=== PATIENT | male | born 1990 | race Caucasian/White ===

== ENCOUNTER 2016-04-21 12:15 | Emergency (ER) | payer MEDICARE, OTHER ==
[2016-04-21 12:34] VITALS: TEMP 98.7
[2016-04-21] MEDS ORDERED: methylPREDNISolone SOD SUCCI 125 MG/2 ML VIAL IM ONE (13:11)
--- NOTE | 2016-04-21 13:14 | ED ---
Allergic Reaction HPI - General Chief complaint: Allergic Reaction Stated complaint: allergic reaction Time Seen by Provider: 04/21/16 13:07 Source: patient, RN notes reviewed Mode of arrival: ambulatory Limitations: no limitations - History of Present Illness Initial Comments: 25-year-old male presents emergency Department with chief complaint of poison jackie. Patient states that he was cutting wood yesterday patient states he woke up today if she rash all over. Patient states that he has not taken anything for this. Patient had poison jackie multiple times in the past. Patient denies any other new products including soaps lotions or detergents any medications. Patient states it's on his arms and face neck abdomen. Patient states that he feels that he is having difficulty breathing from that - Related Data Previous Rx's Medication Instructions Recorded diphenhydrAMINE [Benadryl] 50 mg PO QID PRN #20 capsule 04/21/16 methylPREDNISolone [Medrol Dose 4 mg PO DIRECTED #1 pack 04/21/16 Pack] Allergies Allergy/AdvReac Type Severity Reaction Status Date / Time baclofen Allergy Unknown Verified 01/14/16 14:01 ibuprofen [From Motrin] Allergy Unknown Verified 01/14/16 15:04 Review of Systems ROS Statement: Those systems with pertinent positive or pertinent negative responses have been documented in the HPI. ROS Other: All systems not noted in ROS Statement are negative. Past Medical History Past Medical History: No Reported History History of Any Multi-Drug Resistant Organisms: None Reported Past Surgical History: No Surgical Hx Reported Past Psychological History: Anxiety, Depression Smoking Status: Never smoker Past Alcohol Use History: None Reported Past Drug Use History: None Reported General Exam Limitations: no limitations General appearance: alert, in no apparent distress Head exam: Present: atraumatic, normocephalic, normal inspection Eye exam: Present: normal appearance, PERRL, EOMI. Absent: scleral icterus, conjunctival injection, periorbital swelling ENT exam: Present: normal exam, normal oropharynx, mucous membranes moist Neck exam: Present: normal inspection, full ROM. Absent: tenderness, meningismus, lymphadenopathy Respiratory exam: Present: normal lung sounds bilaterally. Absent: respiratory distress, wheezes, rales, rhonchi, stridor Cardiovascular Exam: Present: regular rate, normal rhythm, normal heart sounds. Absent: systolic murmur, diastolic murmur, rubs, gallop, clicks Skin exam: Present: rash (Erythematous vesicular papular rash on arms abdomen neck face region.) Course Vital Signs 04/21/16 12:32 Temperature 98.7 F Pulse Rate 92 Respiratory 20 Rate Blood Pressure 143/92 O2 Sat by Pulse 100 Oximetry Medical Decision Making - Medical Decision Making 25-year-old male present emergency department to complaint rash. Patient has poison jackie. Patient be given steroids, Benadryl. Return parameters were discussed. Disposition Clinical Impression: Poison jackie dermatitis Disposition: HOME SELF-CARE Condition: Stable Instructions: Poison Jackie (ED) Additional Instructions: Please return to the Emergency Department if symptoms worsen or any other concerns. Prescriptions: diphenhydrAMINE [Benadryl] 50 mg PO QID PRN #20 capsule PRN Reason: Itching methylPREDNISolone [Medrol Dose Pack] 4 mg PO DIRECTED #1 pack Time of Disposition: 13:14
[2016-04-21 13:48] VITALS: BP 157/80; PULSE 57; RESP 16
== END 2016-04-21 13:47 | disposition home or self-care (01) ==
LOC: EC 12:15
DX: L23.7 Allergic contact dermatitis due to plants, except food (principal); Z88.6 Allergy status to analgesic agent; Z88.8 Allergy status to other drugs, medicaments and biological substances
CPT/HCPCS: 99283; 96372; J2930

== ENCOUNTER 2016-06-14 11:40 | Emergency (ER) | payer MEDICARE, OTHER ==
[2016-06-14] MEDS ORDERED: SODIUM CHLORIDE 0.9% 1,000 ML IV STA (12:05)
[2016-06-14] MEDS ORDERED: ONDANSETRON 4 MG/2 ML VIAL IVP STA (12:05)
[2016-06-14] MEDS ORDERED: HYDROmorphone 1 MG/ML 1 ML SYRINGE IVP STA (12:05)
--- NOTE | 2016-06-14 12:10 | ED ---
Abdominal Pain HPI - General Chief Complaint: Abdominal Pain Stated Complaint: abd pain Time Seen by Provider: 06/14/16 11:53 Source: patient, RN notes reviewed Mode of arrival: ambulatory Limitations: no limitations - History of Present Illness Initial Comments: 25-year-old male presents emergency Department chief complaint bilateral flank pain, kidney stones. Patient states she's had a long history of kidney stones for last 9 years past several stones and states that his been passing quite a few frequently recently. Patient states he passed some sort of tissue or red thing today. Patient kept in the bottle. This appears to be a blood clot. Denies any vomiting states he is nauseated. Denies any fever or chills. Patient also has chronic abdominal pain secondary to Crohn's. - Related Data Home Medications Medication Instructions Recorded Confirmed Hydrocodone/Acetaminophen [[place] 1 tab PO BID PRN 06/14/16 06/14/16 5-325] Lisinopril [Zestril] 10 mg PO DAILY 06/14/16 06/14/16 Nortriptyline HCl [Pamelor] 25 mg PO HS 06/14/16 06/14/16 Zolpidem Tartrate [Ambien] 10 mg PO HS PRN 06/14/16 06/14/16 Allergies Allergy/AdvReac Type Severity Reaction Status Date / Time baclofen Allergy Unknown Verified 06/14/16 12:28 ibuprofen [From Motrin] Allergy Unknown Verified 06/14/16 12:28 Review of Systems ROS Statement: Those systems with pertinent positive or pertinent negative responses have been documented in the HPI. ROS Other: All systems not noted in ROS Statement are negative. Past Medical History Past Medical History: No Reported History Additional Past Medical History / Comment(s): kidney stones, chonic back and knee pain History of Any Multi-Drug Resistant Organisms: None Reported Past Surgical History: No Surgical Hx Reported Additional Past Surgical History / Comment(s): kidney stone removal Past Psychological History: Anxiety, Depression Smoking Status: Never smoker Past Alcohol Use History: None Reported Past Drug Use History: None Reported General Exam Limitations: no limitations General appearance: alert, in no apparent distress Respiratory exam: Present: normal lung sounds bilaterally. Absent: respiratory distress, wheezes, rales, rhonchi, stridor Cardiovascular Exam: Present: regular rate, normal rhythm, normal heart sounds. Absent: systolic murmur, diastolic murmur, rubs, gallop, clicks GI/Abdominal exam: Present: soft, tenderness (Diffuse mild), normal bowel sounds. Absent: distended, guarding, rebound, rigid Back exam: Present: CVA tenderness (R), CVA tenderness (L) Neurological exam: Present: alert, oriented X3, CN II-XII intact Skin exam: Present: warm, dry, intact, normal color. Absent: rash Course Vital Signs 06/14/16 11:42 Temperature 98 F Pulse Rate 90 Respiratory 20 Rate Blood Pressure 156/92 O2 Sat by Pulse 100 Oximetry Medical Decision Making - Medical Decision Making 25-year-old male presented for flank pain. Patient has kidney stones noted on KUB. Patient has a history kidney stones. Patient past. We small amount of blood today. Patient's urinalysis is clear. Patient we discharged follow-up with on-call urologist Dr. Reid. - Lab Data Result diagrams: 06/14/16 12:10 06/14/16 12:10 Lab Results 06/14/16 06/14/16 06/14/16 Range/Units 12:10 12:10 13:30 WBC 10.3 (3.8-10.6) k/uL RBC 5.08 (4.30-5.90) m/uL Hgb 15.4 (13.0-17.5) gm/dL Hct 46.2 (39.0-53.0) % MCV 91.0 (80.0-100.0) fL MCH 30.2 (25.0-35.0) pg MCHC 33.2 (31.0-37.0) g/dL RDW 13.4 (11.5-15.5) % Plt Count 303 (150-450) k/uL Neutrophils % 70 % Lymphocytes % 20 % Monocytes % 7 % Eosinophils % 2 % Basophils % 1 % Neutrophils # 7.2 (1.3-7.7) k/uL Lymphocytes # 2.0 (1.0-4.8) k/uL Monocytes # 0.7 (0-1.0) k/uL Eosinophils # 0.2 (0-0.7) k/uL Basophils # 0.1 (0-0.2) k/uL Sodium 140 (137-145) mmol/L Potassium 4.2 (3.5-5.1) mmol/L Chloride 105 (98-107) mmol/L Carbon Dioxide 25 (22-30) mmol/L Anion Gap 10 mmol/L BUN 16 (9-20) mg/dL Creatinine 1.13 (0.66-1.25) mg/dL Est GFR (MDRD) Af Amer >60 (>60 ml/min/1.73 sqM) Est GFR (MDRD) Non-Af >60 (>60 ml/min/1.73 sqM) Glucose 92 (74-99) mg/dL Calcium 9.8 (8.4-10.2) mg/dL Total Bilirubin 0.9 (0.2-1.3) mg/dL AST 47 (17-59) U/L ALT 91 H (21-72) U/L Alkaline Phosphatase 45 (38-126) U/L Total Protein 7.9 (6.3-8.2) g/dL Albumin 4.6 (3.5-5.0) g/dL Amylase 47 (30-110) U/L Lipase 69 (23-300) U/L Urine Color Yellow Urine Appearance Clear (Clear) Urine pH 6.0 (5.0-8.0) Ur Specific [place] 1.016 (1.001-1.035) Urine Protein Negative (Negative) Urine Glucose (UA) Negative (Negative) Urine Ketones Negative (Negative) Urine Blood Negative (Negative) Urine Nitrite Negative (Negative) Urine Bilirubin Negative (Negative) Urine Urobilinogen <2.0 (<2.0) mg/dL Ur Leukocyte Esterase Negative (Negative) Disposition Clinical Impression: Kidney stones Disposition: HOME SELF-CARE Condition: Stable Instructions: Kidney Stones (ED) Additional Instructions: Please return to the Emergency Department if symptoms worsen or any other concerns. Referrals: Rose Vaughn MD [Primary Care Provider] - 1-2 days Jitendra Michael MD [STAFF PHYSICIAN] - 1-2 days Time of Disposition: 14:04
[2016-06-14 12:23] LABS: Basophils # (A) 0.1 k/uL (0-0.2); Basophils % (A) 1 %; CH 30.7; CHCM 33.9; Eosinophils # (A) 0.2 k/uL (0-0.7); Eosinophils % (A) 2 %; HCT 46.2 % (39.0-53.0); HDW 2.32; HGB 15.4 gm/dL (13.0-17.5); Luc # (Auto) 0.16; Luc % (Auto) 2; Lymphocytes % (A) 20 %; MCH 30.2 pg (25.0-35.0); MCHC 33.2 g/dL (31.0-37.0); Mean Platelet Volume 6.2; Monocytes # (A) 0.7 k/uL (0-1.0); Monocytes % (A) 7 %; Neutrophils # (A) 7.2 k/uL (1.3-7.7); Neutrophils % (A) 70 %; RBC 5.08 m/uL (4.30-5.90); RDW 13.4 % (11.5-15.5); WBC 10.3 k/uL (3.8-10.6); WBC (Perox) 9.87
[2016-06-14 12:33] LABS: ALT 91 U/L (21-72); AST 47 U/L (17-59); Alkaline Phosphatase 45 U/L (38-126); Amylase 47 U/L (30-110); Anion Gap 10 mmol/L; Blood Urea Nitrogen 16 mg/dL (9-20); Calcium 9.8 mg/dL (8.4-10.2); Carbon Dioxide 25 mmol/L (22-30); Chloride 105 mmol/L (98-107); Glucose 92 mg/dL (74-99); Non-African American GFR(MDRD) >60 (>60 ml/min/1.73 sqM); Potassium 4.2 mmol/L (3.5-5.1); Sodium 140 mmol/L (137-145); Total Bilirubin 0.9 mg/dL (0.2-1.3); Total Protein 7.9 g/dL (6.3-8.2)
--- NOTE | 2016-06-14 12:33 | XR ---
EXAMINATION TYPE: XR KUB DATE OF EXAM: 06/14/2016 12:28 PM CLINICAL HISTORY: Bilateral flank pain. Gross hematuria. TECHNIQUE: 2 upright KUB images of the abdomen are obtained. COMPARISON: Abdominal x-ray October 05, 2012. CT abdomen and pelvis March 24, 2011. FINDINGS: Scattered gas is seen in non-distended small bowel loops. Gas and fecal material is seen in non-distended colon. Several small tiny calculi are seen bilaterally, this correlates with prior C T. At least 4 small calculi are present lower pole level of both kidneys. There is suspected large ir regular 6 mm calculus upper pole level right kidney near level of right 12th rib. No pneumoperitoneu m is seen. Lung bases are clear. Visualized osseous structures are intact. Impression: Multiple small bilateral renal calculi redemonstrated.
[2016-06-14 13:52] LABS: Appearance,Urine Clear (Clear); Bilirubin,Urine Negative (Negative); Glucose,Urine (UA) Negative (Negative); Ketones,Urine Negative (Negative); Leukocyte Esterase,Urine Negative (Negative); Nitrite,Urine Negative (Negative); Protein,Urine Negative (Negative); Specific Gravity,Urine 1.016 (1.001-1.035); UA Billing (MACRO vs. MICRO) CHEM; Urobilinogen,Urine <2.0 mg/dL (<2.0)
[2016-06-14 14:19] VITALS: BP 128/78; PULSE 70; RESP 18; TEMP 98.1
[2016-06-15 13:58] LABS: Hepatitis B Surface Ag Index 0.08
[2016-06-15 14:04] LABS: Hepatitis B Core IgM Index 0.08
[2016-06-15 14:19] LABS: Hepatitis C Virus IgG Ab Reactive (Negative)
== END 2016-06-14 14:19 | disposition home or self-care (01) ==
LOC: EC 11:40
DX: N20.0 Calculus of kidney (principal); R11.0 Nausea; F41.9 Anxiety disorder, unspecified; F32.9 Major depressive disorder, single episode, unspecified; Z79.899 Other long term (current) drug therapy; Z88.6 Allergy status to analgesic agent; Z88.8 Allergy status to other drugs, medicaments and biological substances
CPT/HCPCS: 36415; 80053; 82150; 83690; 85025; 81003; 74000; 99284; 96374; 96375; 96361; J2405; J1170; 80074

== ENCOUNTER → 2016-06-21 | Outpatient (CLI) | payer MEDICARE, OTHER ==
--- NOTE | 2016-06-21 11:47 | XR ---
EXAMINATION TYPE: XR KUB DATE OF EXAM: 06/21/2016 10:49 AM CLINICAL DATA: 25-year-old male follow-up bilateral renal stones, [facility] COMPARISON: 06/14/2016 FINDINGS: Nonobstructive bowel gas pattern. Mild overall stool burden. Bilateral nephrolithiasis redemonstrated with calculi measuring up to 5 mm on the right at the upper pole and 6 mm on the left at the lower pole. There appears to be a transitional lumbosacral segment probably sacralized L5. Stable phlebolith with in the right hemipelvis. IMPRESSION: Redemonstrated bilateral nephrolithiasis measuring up to 6 mm.
== END | disposition home or self-care (01) ==
LOC: RADXRMAIN 10:38
PROVIDERS: ATTEND Physician Assistant
DX: N20.0 Calculus of kidney (principal)
CPT/HCPCS: 74000

== ENCOUNTER → 2016-06-24 | Outpatient (CLI) | payer MEDICARE, OTHER ==
--- NOTE | 2016-06-24 11:54 | CT ---
EXAMINATION TYPE: CT abdomen pelvis wo con DATE OF EXAM: 06/24/2016 11:40 AM COMPARISON: NONE HISTORY: Calculus of kidney and Calculus of ureter CT DLP: 869 mGycm Automated exposure control for dose reduction was used. FINDINGS: Visualized portions of the lungs are clear. There is no pleural or pericardial fluid. Within the abdomen, the liver, spleen and gallbladder appear normal. Both adrenal glands appear normal. Limited views of the pancreas are unremarkable. There is bilateral nephrolithiasis these number approximately 10 on the right and 3 on the left. The largest on the right measures 6.6 mm. The largest on the left measures 5 mm. There is no evidence of hydronephrosis. There is no significant retroperitoneal, iliac or inguinal adenopathy. The bladder wall is somewhat thickened. This may be due to lack of distention. There are occasional diverticula within the sigmoid colon. The appendix is not visualized with certai nty. Small bowel loops are normal. There is no free fluid and no free air. There is a tiny umbilical hernia containing fat only. There is mild wedging of the T12 vertebral body. This is likely developmental. IMPRESSION: 1. BILATERAL NONOBSTRUCTING NEPHROLITHIASIS. 2. TINY UMBILICAL HERNIA CONTAINING FAT ONLY. 3. MINIMAL, UNCOMPLICATED DIVERTICULOSIS OF THE SIGMOID COLON.
== END | disposition home or self-care (01) ==
LOC: RADCTMAIN 11:18
PROVIDERS: ATTEND Urology
DX: N20.0 Calculus of kidney (principal); K42.9 Umbilical hernia without obstruction or gangrene; K57.30 Diverticulosis of large intestine without perforation or abscess without bleeding; Z88.6 Allergy status to analgesic agent; Z88.8 Allergy status to other drugs, medicaments and biological substances
CPT/HCPCS: 74176

== ENCOUNTER 2016-08-18 11:59 | Emergency (ER) | payer MEDICARE, OTHER ==
[2016-08-18 13:37] VITALS: RESP 18
--- NOTE | 2016-08-18 14:18 | ED ---
Recheck HPI - General Chief Complaint: Recheck/Abnormal Lab/Rx Stated Complaint: left foot dressing wrap Time Seen by Provider: 08/18/16 14:04 Source: family Mode of arrival: wheelchair Limitations: no limitations - History of Present Illness Initial Comments: Patient is a 25-year-old male presenting to the emergency department for wound check and dressing changes of a left foot laceration. Patient states he didn't receive any instructions for wound care and just wanted his dressing changed. Patient currently denies chills, fevers, nausea, vomiting, shortness of breath, chest pain, or abdominal pain. Patient reports mild numbness to his left great toe. Patient states he is taking [place] 7.5 with relief. MD Complaint: wound re-check Onset/Timin -: days(s) Initial Visit For: laceration (Left anterior foot.) Returns Today for: wound recheck, other (Dressing change) Treatments Prior to Arrival: dressings - Related Data Home Medications Medication Instructions Recorded Confirmed Lisinopril [Zestril] 10 mg PO DAILY 06/14/16 08/18/16 Nortriptyline HCl [Pamelor] 50 mg PO HS 06/14/16 08/18/16 Zolpidem Tartrate [Ambien] 10 mg PO HS PRN 06/14/16 08/18/16 HYDROcodone/APAP 7.5-325MG [[place] 1 tab PO Q6HR PRN 08/18/16 08/18/16 7.5-325] metroNIDAZOLE [Flagyl] 500 mg PO BID PRN 08/18/16 08/18/16 Allergies Allergy/AdvReac Type Severity Reaction Status Date / Time baclofen Allergy "BLACKS Verified 08/18/16 14:03 OUT" ibuprofen [From Motrin] Allergy GABI'S Verified 08/18/16 14:03 FLARE UPS Review of Systems ROS Statement: Those systems with pertinent positive or pertinent negative responses have been documented in the HPI. ROS Other: All systems not noted in ROS Statement are negative. Past Medical History Past Medical History: No Reported History Additional Past Medical History / Comment(s): kidney stones, chonic back and knee pain History of Any Multi-Drug Resistant Organisms: None Reported Past Surgical History: No Surgical Hx Reported Additional Past Surgical History / Comment(s): kidney stone removal Past Psychological History: Anxiety, Depression Smoking Status: Current every day smoker Past Alcohol Use History: None Reported Past Drug Use History: Marijuana General Exam - General Exam Comments Initial Comments: GENERAL: Pt awake and alert, well-appearing, well-nourished, and in no acute distress. HEAD: Atraumatic, normocephalic. EYES: Pupils equal, round, sclera anicteric, conjunctiva are normal. ENT: Oropharynx clear without exudates. Moist mucous membranes. NECK:Normal range of motion, supple without lymphadenopathy or JVD. No carotid bruits. LUNGS: Breath sounds clear to auscultation bilaterally. No wheezes, rales, or rhonchi. HEART: Heart S1, S2, no S3 or S4. Regular rate and rhythm. No murmurs, rubs or gallops. ABDOMEN: Soft, nontender, nondistended, normoactive bowel sounds. EXTREMITIES: Palpable peripheral pulses. Mild edema to left anterior foot proximal to left great toe. No calf tenderness. NEUROLOGICAL: Pt oriented x 3. No focal deficits noted. Strength and sensation grossly intact. PSYCH: Normal mood, normal affect. SKIN: Warm, dry. 4 cm laceration to anterior left foot proximal to left great toe with 6 sutures. No evidence of cellulitis or drainage. Limitations: no limitations Course Vital Signs 08/18/16 13:33 Temperature 98.0 F Pulse Rate 81 Respiratory 18 Rate Blood Pressure 123/65 O2 Sat by Pulse 100 Oximetry Medical Decision Making - Medical Decision Making Wound check and dressing change for follow-up of laceration to left foot. No evidence of cellulitis or purulent drainage. Patient instructed to follow-up with Dr. Vaughn for suture removal as previously directed. Wound care instructions reviewed with patient. Patient agrees with treatment plan. Discharge instructions and return parameters reviewed. Disposition Clinical Impression: Encounter for wound re-check Disposition: HOME SELF-CARE Condition: Good Instructions: Care For Your Stitches (ED), Laceration (ED) Additional Instructions: Please follow-up with Dr. Vaughn as previously directed. Monitor for signs and symptoms of infection such as increased redness, increased pain, increased numbness or tingling, fevers, chills, nausea, vomiting. Patient return to the emergency department with any new or worsening symptoms. Referrals: Rose Vaughn MD [Primary Care Provider] - 1-2 days Time of Disposition: 14:18
[2016-08-18 14:32] VITALS: BP 120/60; PULSE 77; TEMP 98.1
== END 2016-08-18 14:33 | disposition home or self-care (01) ==
LOC: EC 11:59
DX: S91.312D Laceration without foreign body, left foot, subsequent encounter (principal); R20.0 Anesthesia of skin; F32.9 Major depressive disorder, single episode, unspecified; F17.200 Nicotine dependence, unspecified, uncomplicated; Z79.899 Other long term (current) drug therapy; Z88.6 Allergy status to analgesic agent; Z88.8 Allergy status to other drugs, medicaments and biological substances
CPT/HCPCS: 99282

== ENCOUNTER → 2017-02-22 | Outpatient (CLI) | payer MEDICARE, OTHER ==
--- NOTE | 2017-02-22 12:04 | CT ---
EXAMINATION TYPE: CT Enterography DATE OF EXAM: 02/22/2017 COMPARISON: CT abdomen pelvis June 24, 2016. HISTORY: Chron' s Disease per order. CT DLP: 1095.2 mGycm, Automated Exposure Control for Dose Reduction was Utilized. CONTRAST: CT scan of the abdomen and pelvis is performed with oral Volumen and without and with IV Contrast, pa tient injected with 100 mL of Omnipaque 350. Enterography protocol. FINDINGS: LUNG BASES: No significant abnormality is appreciated. LIVER/GB: No significant abnormality is appreciated. PANCREAS: No significant abnormality is seen. SPLEEN: No significant abnormality is seen. ADRENALS: No significant abnormality is seen. KIDNEYS: Noncontrast images redemonstrate bilateral renal calculi there are 4-5 calculi in the left k idney measuring up to 5 mm in size lower pole level coronal image 79 and 6-9 calculi scattered throug hout right kidney with largest upper pole level filling central calyx measuring 6 mm long axis philippe l image 85 all redemonstrated. No hydronephrosis is evident bilaterally. There is simple appearing martin bcentimeter cyst lower pole level laterally left kidney coronal image 81 series 17. BOWEL: Stomach is satisfactorily distended and felt within normal limits. No suspicious enhancement o r wall thickening and duodenal sweep is seen. Enterography study is somewhat suboptimal with some non distended scattered small bowel loops. There is fluid extension to level of rectum. There is mild wal l thickening at level of terminal ileum which is somewhat poorly distended. This is also less promine nt on noncontrast and delayed phase imaging. No suspicious enhancement is seen to suggest active infl ammation. No vasa engorgement is identified. No persistent stricture is clearly seen. PROSTATE/SEMINAL VESICLES: No gross abnormality seen. LYMPH NODES: No greater than 1cm abdominal or pelvic lymph nodes are appreciated. OSSEOUS STRUCTURES: Sacroiliac joints remain within normal limits. OTHER: There is stable tiny fat-containing umbilical hernia. IMPRESSION: Suboptimal study without convincing evidence of active inflammation or Crohn's disease. B ilateral nephrolithiasis redemonstrated.
== END | disposition home or self-care (01) ==
LOC: RADCTMAIN 08:12
PROVIDERS: ATTEND Internal Medicine Gastroenterology
DX: N20.0 Calculus of kidney (principal); Z87.19 Personal history of other diseases of the digestive system
CPT/HCPCS: 74177; Q9967

== ENCOUNTER 2017-03-20 18:20 | Emergency (ER) | payer MEDICARE, OTHER ==
[2017-03-20 19:41] VITALS: RESP 18
[2017-03-20 20:57] VITALS: BP 143/83; PULSE 90
[2017-03-20 21:01] VITALS: TEMP 98.4
--- NOTE | 2017-03-20 21:22 | ED ---
General Adult HPI - General Chief complaint: Abdominal Pain Stated complaint: Hernia/ abdominal pain Time Seen by Provider: 03/20/17 20:53 Source: patient, family, RN notes reviewed Mode of arrival: ambulatory Limitations: no limitations - History of Present Illness Initial comments: 26 shows male presents to the emergency Department chief complaint of pain around his umbilical hernia. He was recently diagnosed with this. He states after lifting heavy logs he developed some abdominal pain today. (Early. Patient has a nausea vomiting fever or chills. He denies any cough cold with this. He states he still had bowel movements. He states that if you touch the area seems to cause him discomfort he bears down and listening it causes him pain. Patient states he is not currently having any other symptoms at this time. Patient denies any recent fever, chills, shortness of breath, chest pain, back pain, nausea vomiting, numbness or tingling, dysuria or hematuria, constipation or diarrhea, headaches or visual changes, or any other current symptoms. - Related Data Home Medications Medication Instructions Recorded Confirmed oxyCODONE-APAP 7.5-325MG [Percocet 1 tab PO TID PRN 03/20/17 03/20/17 7.5-325 mg] Previous Rx's Medication Instructions Recorded Docusate [Colace] 100 mg PO DAILY #20 capsule 03/20/17 Allergies Allergy/AdvReac Type Severity Reaction Status Date / Time baclofen Allergy "BLACKS Verified 03/20/17 20:55 OUT" ibuprofen [From Motrin] Allergy GABI'S Verified 03/20/17 20:55 FLARE UPS Review of Systems ROS Statement: Those systems with pertinent positive or pertinent negative responses have been documented in the HPI. ROS Other: All systems not noted in ROS Statement are negative. Past Medical History Past Medical History: No Reported History Additional Past Medical History / Comment(s): kidney stones, chonic back and knee pain, hernia History of Any Multi-Drug Resistant Organisms: None Reported Past Surgical History: No Surgical Hx Reported Additional Past Surgical History / Comment(s): kidney stone removal Past Psychological History: Anxiety, Depression Smoking Status: Current some day smoker Past Alcohol Use History: None Reported Past Drug Use History: Marijuana General Exam - General Exam Comments Initial Comments: General: The patient is awake and alert, in no distress, and does not appear acutely ill. Eye: Pupils are equal, round and reactive to light. Ears, nose, mouth and throat: There are moist mucous membranes. Neck: The neck is supple, there is no tenderness. Cardiovascular: There is a regular rate and rhythm. No murmur, rub or gallop is appreciated. Respiratory: Lungs are clear to auscultation, respirations are non-labored, breath sounds are equal. No wheezes, stridor, rales, or rhonchi. Gastrointestinal: Small umbilical hernia that is reducible, Soft, non-distended , non-tender abdomen without masses or organomegaly noted. There is no rebound or guarding present. No CVA tenderness. Bowel sounds are unremarkable. Back: There is no tenderness to palpation in the midline. There is no obvious deformity. No rashes noted. Musculoskeletal: Normal ROM, no tenderness, There is no pedal edema. There is no calf tenderness or swelling. Sensation intact. Pulses equal bilaterally 2+. Neurological: CN II-XII intact, There are no obvious motor or sensory deficits. Coordination appears grossly intact. Speech is normal. Skin: Skin is warm and dry and no rashes or lesions are noted. Psychiatric: Cooperative, appropriate mood & affect, normal judgment. Limitations: no limitations Course Vital Signs 03/20/17 03/20/17 19:36 20:56 Temperature 99.3 F 98.4 F Pulse Rate 78 90 Respiratory 18 18 Rate Blood Pressure 133/85 143/83 O2 Sat by Pulse 100 98 Oximetry Medical Decision Making - Medical Decision Making 36 shows male presents for umbilical hernia pain he is also requesting refill of his chronic pain medication. We discussed these follow-up with his neurologist for this refill. This time we did discuss we will put him on a stool softener. We discussed return parameters and follow-up and all questions. Patient stated the Anup is given this plan. All questions have been answered. He'll be discharged. We also discussed needs follow-up with surgeon he is given this was personalized living manager for information. Disposition Clinical Impression: Umbilical hernia Disposition: HOME SELF-CARE Condition: Stable Instructions: Umbilical Hernia (ED) Additional Instructions: Please use medication as discussed. Please follow up with family doctor if symptoms have not improved over the next two days. Please return to the emergency room if your symptoms increase or worsen or for any other concerns. Prescriptions: Docusate [Colace] 100 mg PO DAILY #20 capsule Referrals: Rose Vaughn MD [Primary Care Provider] - 1-2 days Maninder Dash MD [STAFF PHYSICIAN] - 1-2 days Time of Disposition: 21:22
[2017-03-20] MEDS ORDERED: ACETAMINOPHEN TAB 500 MG TAB PO STA (21:33)
== END 2017-03-20 21:39 | disposition home or self-care (01) ==
LOC: EC 18:20
DX: K42.9 Umbilical hernia without obstruction or gangrene (principal); F17.200 Nicotine dependence, unspecified, uncomplicated; Z88.6 Allergy status to analgesic agent; Z88.8 Allergy status to other drugs, medicaments and biological substances
CPT/HCPCS: 99283

== ENCOUNTER → 2017-04-05 | Day surgery (SDC) | payer MEDICARE, OTHER ==
[2017-03-31 10:20] VITALS: BMI 24.0
[~2017-04-05] MED LIST: BUPIVACAINE (PF) 0.25% 30 ML VIAL SQ ONE; DEXAMETHASONE SOD PHOSPHATE 10 MG/ML 1 ML VIAL IV ONE; GLYCOPYRROLATE 0.2 MG/ML 2 ML VIAL ONE; HEPARIN SODIUM,PORCINE 5,000 UNIT/ML 1 ML VIAL SQ ONE; HYDROcodone/APAP 7.5-325MG 1 EACH TAB PO ONE; LACTATED RINGERS 1,000 ML IV SCH; LIDOCAINE 1% 20 ML VIAL (10MG/ML) FOR IV START INTRADERMA PRN; LIDOCAINE 1% INJ 10MG/ML (20 ML MDV) ONE; MIDAZOLAM 2 MG/2 ML VIAL ONE; MORPHINE SULFATE 4 MG/ML SYRINGE IV ONE; NEOSTIGMINE 1 MG/ML 10 ML VIAL ONE; ONDANSETRON 4 MG/2 ML VIAL IVP ONE; PROPOFOL 10 MG/ML 20 ML VIAL IV ONE; ROCURONIUM BROMIDE 10 MG/ML 10 ML VIAL IV ONE; SCOPOLAMINE 1.5MG/72HR PATCH TRANSDERM ONE; SUCCINYLCHOLINE CHLORIDE 100 MG/5 ML SYR IV ONE; ceFAZolin IN SWFI 2 GM/20 ML SYRINGE IVP ONE; fentaNYL (PF) 50 MCG/ML 2 ML AMP ONE
--- NOTE | 2017-04-05 08:15 | P.GSHP ---
History of Present Illness H&P Date: 04/05/17 Chief Complaint: Umbilical hernia This a 26-year-old male referred from Dr. Vaughn. Patient rents today for laparoscopic robotic-assisted repair of umbilical hernia. Patient developed a tender mass at his umbilicus. Past Medical History Past Medical History: Hypertension Additional Past Medical History / Comment(s): kidney stones, chonic back and knee pain, hernia, Crohns dx. at age 16. Patient states he takes Zestril prn if his BP is high. History of Any Multi-Drug Resistant Organisms: None Reported Past Surgical History: Tonsillectomy Additional Past Surgical History / Comment(s): kidney stone removal, repair of lacerations from chain saw, L forearm and L toe. Additional Past Anesthesia/Blood Transfusion Reaction / Comment(s): Severe anxiety when waking up from anesthesia. Smoking Status: Current some day smoker - Past Family History Mother Additional Family Medical History / Comment(s): Brain aneurysm Medications and Allergies Home Medications Medication Instructions Recorded Confirmed Type oxyCODONE-APAP 7.5-325MG [Percocet 1 tab PO TID PRN 03/20/17 03/31/17 History 7.5-325 mg] Dicyclomine [Bentyl] 10 mg PO TID 03/31/17 04/05/17 History Lisinopril [Zestril] 10 mg PO DAILY PRN 03/31/17 04/05/17 History Polyethylene Glycol 3350 [Miralax] 17 gm PO DAILY 03/31/17 04/05/17 History Vortioxetine Hydrobromide 10 mg PO DAILY 03/31/17 03/31/17 History [Trintellix] hydrOXYzine HCL [Atarax] 25 mg PO TID 03/31/17 03/31/17 History Allergies Allergy/AdvReac Type Severity Reaction Status Date / Time baclofen Allergy "BLACKS Verified 03/31/17 09:34 OUT" ibuprofen [From Motrin] Allergy GABI'S Verified 03/31/17 09:34 FLARE UPS Surgical - Exam Vital Signs Temp Pulse Resp BP Pulse Ox 97.9 F 63 16 109/72 97 04/05/17 07:51 04/05/17 07:51 04/05/17 07:51 04/05/17 07:51 04/05/17 07:51 - General well developed, no distress - Eyes PERRL - ENT normal pinna - Neck no masses - Respiratory normal expansion - Cardiovascular Rhythm: regular - Abdomen Abdomen: soft, non tender Hernia: umbilical (Reducible umbilical hernia) Assessment and Plan Plan: Umbilical hernia. We will perform laparoscopic robotic assistance repair.
--- NOTE | 2017-04-05 09:35 | P.OP ---
Date of Procedure: 04/05/17 Preoperative Diagnosis: Incarcerated umbilical hernia Postoperative Diagnosis: Incarcerated umbilical hernia Procedure(s) Performed: Laparoscopic robotic system repair of incarcerated umbilical hernia Anesthesia: KHRIS Surgeon: Maninder Dash Estimated Blood Loss (ml): 5 Pathology: other (Incarcerated fat) Condition: stable Disposition: PACU Description of Procedure: The patient was placed on the operating table in the supine position. He received general anesthesia. His abdomen was prepped and draped usual fashion. Using a 5 mm optical trocar under direct visualization the peritoneal cavity was entered in the left upper quadrant. The abdomen was then insufflated. The laparoscope was placed back into the perineal cavity. Next a 8 mm robotic trocar was placed in the left lower quadrant and a 12 mm robotic trocar was placed in the left lateral position. The original 5 mm trocar was exchanged for a 8 mm robotic trocar. The patient's placed in the left side up position. And the patient was undocked the robot. The umbilical hernia was visualized. Using hook cautery the peritoneum over the umbilical hernia was excised. There was incarcerated omentum and this was dissected free and then transected with the hook cautery. The fascial opening was repaired using 0V LOC suture. Next a piece of 11 cm round ventral light ST mesh was placed into the. Cavity and secured with 2 OV lock suture. The patient was undocked the robot. The needles were retrieved. The incarcerated fat was retrieved. The fascia of the 12 mm trocar site was closed with 0 Ethibond suture. Skin was closed interrupted 3-0 Monocryl suture. Dermabond dressings was applied. Patient top procedure well and was sent to recovery room stable condition.
[2017-04-05 10:06] VITALS: TEMP 97.8
[2017-04-05] MEDS: HYDROmorphone 0.5 MG/0.5 ML SYRINGE IVP PRN ×2 (10:30→10:42)
[2017-04-05 11:18] VITALS: RESP 16
[2017-04-05 11:58] VITALS: BP 119/82; PULSE 94
== END | disposition home or self-care (01) ==
LOC: OR 07:21
PROVIDERS: ATTEND Surgery
DX: K42.0 Umbilical hernia with obstruction, without gangrene (principal); I10 Essential (primary) hypertension; K50.90 Crohn's disease, unspecified, without complications; Z87.442 Personal history of urinary calculi; F41.9 Anxiety disorder, unspecified; Z79.899 Other long term (current) drug therapy; Z88.6 Allergy status to analgesic agent; Z88.8 Allergy status to other drugs, medicaments and biological substances; F17.200 Nicotine dependence, unspecified, uncomplicated
CPT/HCPCS: 88302; 49653; C1781; J2250; J2270; J1644; J1100; J2710; J2405; J2001; J3010; J0330; J2704; J1170; J0690

== ENCOUNTER 2017-04-07 20:03 | Inpatient (IN) | payer MEDICARE, OTHER ==
[2017-04-07] MEDS ORDERED: ACETAMINOPHEN IV (For NPO) 1,000 MG in EMPTY BAG 1 BAG IVPB STA (21:48)
[2017-04-07] MEDS ORDERED: SODIUM CHLORIDE 0.9% 1,000 ML IV STA ×2 (21:48)
[2017-04-07] MEDS ORDERED: SODIUM CHLORIDE 0.9% 500 ML IV STA (21:48)
[2017-04-07] MEDS ORDERED: RX INFO: IV CONTRAST WAS GIVEN 1 EACH MISC MISCELLANE PRN (21:49)
[2017-04-07] MEDS ORDERED: MORPHINE SULFATE 4 MG/ML SYRINGE IVP STA (22:13)
[2017-04-07 22:36] LABS: Basophils % (A) 0 %; Eosinophils # (A) 0.1 k/uL (0-0.7); Eosinophils % (A) 1 %; HCT 47.4 % (39.0-53.0); Lymphocytes % (A) 12 %; MCH 29.6 pg (25.0-35.0); MCHC 31.7 g/dL (31.0-37.0); MCV 93.5 fL (80.0-100.0); Mean Platelet Volume 6.1; Monocytes # (A) 1.2 k/uL (0-1.0); Monocytes % (A) 7 %; Neutrophils # (A) 13.4 k/uL (1.3-7.7); Neutrophils % (A) 79 %; Platelet Count 263 k/uL (150-450); RBC 5.07 m/uL (4.30-5.90); RDW 13.2 % (11.5-15.5); WBC 16.9 k/uL (3.8-10.6)
[2017-04-07 22:54] LABS: ALT 55 U/L (21-72); AST 25 U/L (17-59); Albumin 4.1 g/dL (3.5-5.0); Alkaline Phosphatase 52 U/L (38-126); Anion Gap 11 mmol/L; Blood Urea Nitrogen 12 mg/dL (9-20); Calcium 9.5 mg/dL (8.4-10.2); Carbon Dioxide 29 mmol/L (22-30); Chloride 100 mmol/L (98-107); Glucose 94 mg/dL (74-99); Potassium 4.1 mmol/L (3.5-5.1); Sodium 140 mmol/L (137-145); Total Bilirubin 0.8 mg/dL (0.2-1.3)
--- NOTE | 2017-04-07 23:02 | ED ---
General Adult HPI - General Chief complaint: Fever Stated complaint: Fever S/p surgery Time Seen by Provider: 04/07/17 21:17 Source: patient, RN notes reviewed, old records reviewed Mode of arrival: wheelchair Limitations: no limitations - History of Present Illness Initial comments: This is a 26-year-old male the ER for evaluation. This patient is a for evaluation regards to fever. Abdominal pain. Cough and congestion. Patient has positive recent history of hernia surgery hernia repair last week. No dysuria, no rash. Patient is is overall not feeling well. Patient has severe abdominal pain as well which has been going on since surgery. Patient states a follow-up surgeries been going well. Fever started last night - Related Data Home Medications Medication Instructions Recorded Confirmed oxyCODONE-APAP 7.5-325MG [Percocet 1 tab PO TID PRN 03/20/17 04/07/17 7.5-325 mg] Vortioxetine Hydrobromide 10 mg PO DAILY 03/31/17 04/07/17 [Trintellix] hydrOXYzine HCL [Atarax] 25 mg PO TID 03/31/17 04/07/17 Previous Rx's Medication Instructions Recorded Docusate [Colace] 100 mg PO BID #20 capsule 04/05/17 Allergies Allergy/AdvReac Type Severity Reaction Status Date / Time baclofen Allergy "BLACKS Verified 04/07/17 22:04 OUT" ibuprofen [From Motrin] Allergy GABI'S Verified 04/07/17 22:04 FLARE UPS Review of Systems ROS Statement: Those systems with pertinent positive or pertinent negative responses have been documented in the HPI. ROS Other: All systems not noted in ROS Statement are negative. Past Medical History Past Medical History: Hypertension Additional Past Medical History / Comment(s): kidney stones, chonic back and knee pain, hernia, Crohns dx. at age 16. Patient states he takes Zestril prn if his BP is high. History of Any Multi-Drug Resistant Organisms: None Reported Past Surgical History: Hernia Repair, Tonsillectomy Additional Past Surgical History / Comment(s): kidney stone removal, repair of lacerations from chain saw, L forearm and L toe. Additional Past Anesthesia/Blood Transfusion Reaction / Comment(s): Severe anxiety when waking up from anesthesia. Past Psychological History: Anxiety, Depression Smoking Status: Current every day smoker Past Alcohol Use History: None Reported Past Drug Use History: Marijuana - Past Family History Mother Additional Family Medical History / Comment(s): Brain aneurysm General Exam Limitations: no limitations General appearance: alert, in no apparent distress, anxious Head exam: Present: atraumatic, normocephalic, normal inspection Eye exam: Present: normal appearance, PERRL, EOMI. Absent: scleral icterus, conjunctival injection, periorbital swelling ENT exam: Present: normal exam, mucous membranes moist Neck exam: Present: normal inspection. Absent: tenderness, meningismus, lymphadenopathy Respiratory exam: Present: normal lung sounds bilaterally. Absent: respiratory distress, wheezes, rales, rhonchi, stridor Cardiovascular Exam: Present: normal rhythm, tachycardia, normal heart sounds. Absent: systolic murmur, diastolic murmur, rubs, gallop, clicks GI/Abdominal exam: Present: soft, tenderness (Generalized diffuse), normal bowel sounds. Absent: distended, guarding, rebound, rigid Extremities exam: Present: normal inspection, full ROM, normal capillary refill. Absent: tenderness, pedal edema, joint swelling, calf tenderness Back exam: Present: normal inspection Neurological exam: Present: alert, oriented X3, CN II-XII intact Psychiatric exam: Present: normal affect, normal mood Skin exam: Present: warm, dry, intact, normal color. Absent: rash Course Vital Signs 04/07/17 04/07/17 04/07/17 20:49 23:20 23:44 Temperature 100.7 F H 98.3 F Pulse Rate 107 H 89 80 Respiratory 18 16 Rate Blood Pressure 102/61 112/58 O2 Sat by Pulse 95 99 Oximetry - Reevaluation(s) Reevaluation #1: 04/07/17 23:02 Medical records thoroughly reviewed including prior surgical record Reevaluation #2: 04/07/17 23:02 Patient is feeling better with fever control pain control Medical Decision Making - Medical Decision Making 26 male to the ED for pain, fever, cough. Patient has pneumonia will admit for IV abx and cardiopulmonary support. - Lab Data Result diagrams: 04/07/17 22:10 04/07/17 22:10 Lab Results 04/07/17 04/07/17 04/07/17 Range/Units 22:10 22:10 22:10 WBC 16.9 H (3.8-10.6) k/uL RBC 5.07 (4.30-5.90) m/uL Hgb 15.0 (13.0-17.5) gm/dL Hct 47.4 (39.0-53.0) % MCV 93.5 (80.0-100.0) fL MCH 29.6 (25.0-35.0) pg MCHC 31.7 (31.0-37.0) g/dL RDW 13.2 (11.5-15.5) % Plt Count 263 (150-450) k/uL Neutrophils % 79 % Lymphocytes % 12 % Monocytes % 7 % Eosinophils % 1 % Basophils % 0 % Neutrophils # 13.4 H (1.3-7.7) k/uL Lymphocytes # 2.0 (1.0-4.8) k/uL Monocytes # 1.2 H (0-1.0) k/uL Eosinophils # 0.1 (0-0.7) k/uL Basophils # 0.0 (0-0.2) k/uL Sodium 140 (137-145) mmol/L Potassium 4.1 (3.5-5.1) mmol/L Chloride 100 (98-107) mmol/L Carbon Dioxide 29 (22-30) mmol/L Anion Gap 11 mmol/L BUN 12 (9-20) mg/dL Creatinine 1.00 (0.66-1.25) mg/dL Est GFR (MDRD) Af Amer >60 (>60 ml/min/1.73 sqM) Est GFR (MDRD) Non-Af >60 (>60 ml/min/1.73 sqM) Glucose 94 (74-99) mg/dL Plasma Lactic Acid [place] 1.0 (0.7-2.0) mmol/L Calcium 9.5 (8.4-10.2) mg/dL Total Bilirubin 0.8 (0.2-1.3) mg/dL AST 25 (17-59) U/L ALT 55 (21-72) U/L Alkaline Phosphatase 52 (38-126) U/L Total Protein 7.0 (6.3-8.2) g/dL Albumin 4.1 (3.5-5.0) g/dL Influenza Type A RNA (Not Detectd) Influenza Type B (PCR) (Not Detectd) 04/07/17 Range/Units 22:10 WBC (3.8-10.6) k/uL RBC (4.30-5.90) m/uL Hgb (13.0-17.5) gm/dL Hct (39.0-53.0) % MCV (80.0-100.0) fL MCH (25.0-35.0) pg MCHC (31.0-37.0) g/dL RDW (11.5-15.5) % Plt Count (150-450) k/uL Neutrophils % % Lymphocytes % % Monocytes % % Eosinophils % % Basophils % % Neutrophils # (1.3-7.7) k/uL Lymphocytes # (1.0-4.8) k/uL Monocytes # (0-1.0) k/uL Eosinophils # (0-0.7) k/uL Basophils # (0-0.2) k/uL Sodium (137-145) mmol/L Potassium (3.5-5.1) mmol/L Chloride (98-107) mmol/L Carbon Dioxide (22-30) mmol/L Anion Gap mmol/L BUN (9-20) mg/dL Creatinine (0.66-1.25) mg/dL Est GFR (MDRD) Af Amer (>60 ml/min/1.73 sqM) Est GFR (MDRD) Non-Af (>60 ml/min/1.73 sqM) Glucose (74-99) mg/dL Plasma Lactic Acid Clemente (0.7-2.0) mmol/L Calcium (8.4-10.2) mg/dL Total Bilirubin (0.2-1.3) mg/dL AST (17-59) U/L ALT (21-72) U/L Alkaline Phosphatase (38-126) U/L Total Protein (6.3-8.2) g/dL Albumin (3.5-5.0) g/dL Influenza Type A RNA Not Detected (Not Detectd) Influenza Type B (PCR) Not Detected (Not Detectd) - Radiology Data Radiology results: report reviewed (Chest x-ray CT of pelvis positive for pneumonia), image reviewed Disposition Clinical Impression: Fever, Nosocomial pneumonia, Postoperative pain Disposition: ADMITTED IP TO THIS HOSP Condition: Good Referrals: Rose Vaughn MD [Primary Care Provider] - 1-2 days
--- NOTE | 2017-04-07 23:07 | CT ---
EXAMINATION TYPE: CT abdomen pelvis w con DATE OF EXAM: 04/07/2017 COMPARISON: 06/24/2016 HISTORY: Left side abd pain post hernia repair. CT DLP: 729.4 mGycm Automated exposure control for dose reduction was used. TECHNIQUE: Helical acquisition of images was performed from the lung bases through the pelvis. CONTRAST: Performed without Oral Contrast and with IV Contrast, patient injected with 100ml mL of Omnipaque 300 . FINDINGS: There is some patchy nodular consolidation in the right lower lobe. There is minimal subsegmental ate lectasis in the left lower lobe. Heart size is normal. There is no pericardial effusion. There is no pleural effusion. Liver spleen pancreas gallbladder appear normal. Bile ducts are not dilated. There is no adrenal mass. Kidneys show satisfactory contrast opacification. There are multiple bilate ral renal calculi. These measure up to 7 mm. The ureters are not dilated. There is no retroperitoneal adenopathy. There is no ascites. Bladder distends smoothly. There is no sign of a pelvic mass. I see no intestinal wall thickening. There are no dilated loops. The appendix appears normal. I see no bon y destructive process. IMPRESSION: MULTIPLE NONOBSTRUCTING BILATERAL RENAL CALCULI. THERE IS 15% ANTERIOR WEDGING OF T 12 VERTEBRA THAT IS AN OLD FRACTURE. NORMAL APPENDIX. RIGHT LOWER LOBE PNEUMONIA. THE PNEUMONIA IS NEW COMPARED TO OLD EXAM. CALCULI ARE SIMILAR TO OLD EXA M.
--- NOTE | 2017-04-07 23:10 | XR ---
EXAMINATION TYPE: XR chest 2V DATE OF EXAM: 04/07/2017 COMPARISON: 07/10/2011 HISTORY: Left side pain TECHNIQUE: Frontal and lateral views of the chest are obtained. FINDINGS: There is patchy pneumonic consolidation at the right lung base. The other lung pace are clear. Heart and mediastinum appear normal. There is no heart failure. Bony thorax is intact. IMPRESSION: There is new right lower lobe pneumonia compared to old exam.
[2017-04-07] MEDS ORDERED: LEVOFLOXACIN 750MG-D5W PMX 750 MG in DEXTROSE/WATER 1 150ML.BAG IVPB STA (23:32)
[2017-04-07] MEDS ORDERED: PIPERACILLIN-TAZOBACTAM 3.375 GM in DEXTROSE/WATER 1 50ML.BAG IVPB STA (23:32)
[2017-04-07] MEDS ORDERED: IPRATROPIUM-ALBUTEROL 3 ML NEB INHALATION STA (23:32)
[2017-04-07] MEDS ORDERED: PNEUMONIA PROTOCOL UTILIZED 1 EACH MISC PO PRN (23:51)
[2017-04-08] MEDS: SODIUM CHLORIDE 0.9% 1,000 ML IV SCH ×3 (00:02→21:55)
[2017-04-08 01:08] LABS: Appearance,Urine Clear (Clear); Bilirubin,Urine Negative (Negative); Blood,Urine Negative (Negative); Color,Urine Yellow; Glucose,Urine (UA) Negative (Negative); Ketones,Urine Negative (Negative); Leukocyte Esterase,Urine Negative (Negative); Nitrite,Urine Negative (Negative); PH, Urine 6.5 (5.0-8.0); Protein,Urine Trace (Negative); Urobilinogen,Urine <2.0 mg/dL (<2.0)
[2017-04-08 01:25] LABS: Specific Gravity,Urine >1.050 (1.001-1.035)
[2017-04-08] MEDS: MORPHINE SULFATE 4 MG/ML SYRINGE IVP PRN ×2 (02:44→08:33)
--- NOTE | 2017-04-08 09:39 | XR ---
EXAMINATION TYPE: XR chest 2V DATE OF EXAM: 04/08/2017 HISTORY: pneumonia. REFERENCE: Previous study dated 04/07/2017. FINDINGS: There is a worsening right basilar infiltrate. There is an associated right-sided effusion. The left lung is clear. The heart is mildly enlarged. IMPRESSION: WORSENING RIGHT LOWER LOBE PNEUMONIA WITH CONCOMITANT EFFUSION.
[2017-04-08 09:53] VITALS: BMI 25.5
[2017-04-08] MEDS: IPRATROPIUM-ALBUTEROL 3 ML NEB INHALATION PRN ×2 (10:31→19:35)
[2017-04-08] MEDS ORDERED: ACETAMINOPHEN TAB 500 MG TAB PO PRN (12:22)
--- NOTE | 2017-04-08 12:26 | P.GSCN ---
History of Present Illness Consult date: 04/08/17 Reason for Consult: Abdominal pain History of present illness: Patient came to the hospital with fevers. He underwent hernia repair this past Monday laparoscopically using the da Patricia robot. He says his pain is been present since surgery. It has not changed for the better or worse. He appears uncomfortable. He had fevers at home as high as 102. Fever in the ER of 100.7. White blood cell count elevated at 16.9. CAT scan was obtained. There is mild induration at the surgical site without evidence of surgical site infection or iatrogenic injury. There is a right lower lobe pneumonia suggested by CAT scan. He was started on antibiotics. According to the patient 's significant other he does not tolerate pain well. He is not tachycardic. No fevers this morning. Review of Systems The patient denies any acute changes in vision or hearing, no dysphagia or odynophagia, no chest pain or shortness of breath, no dysuria or hematuria, no headache, no runny nose, no rectal bleeding or melena, no unexplained weight loss Past Medical History Past Medical History: Hypertension Additional Past Medical History / Comment(s): kidney stones, chonic back and knee pain, hernia, Crohns dx. at age 16. Patient states he takes Zestril prn if his BP is high. History of Any Multi-Drug Resistant Organisms: None Reported Past Surgical History: Hernia Repair, Tonsillectomy Additional Past Surgical History / Comment(s): kidney stone removal, repair of lacerations from chain saw, L forearm and L toe. Additional Past Anesthesia/Blood Transfusion Reaction / Comm: Severe anxiety when waking up from anesthesia. Past Psychological History: Anxiety, Depression Smoking Status: Current every day smoker Past Alcohol Use History: None Reported Past Drug Use History: Marijuana - Past Family History Mother Additional Family Medical History / Comment(s): Brain aneurysm Medications and Allergies Home Medications Medication Instructions Recorded Confirmed Type oxyCODONE-APAP 7.5-325MG [Percocet 1 tab PO TID PRN 03/20/17 04/07/17 History 7.5-325 mg] Vortioxetine Hydrobromide 10 mg PO DAILY 03/31/17 04/07/17 History [Trintellix] hydrOXYzine HCL [Atarax] 25 mg PO TID 03/31/17 04/07/17 History Docusate [Colace] 100 mg PO BID #20 capsule 04/05/17 04/07/17 Rx Allergies Allergy/AdvReac Type Severity Reaction Status Date / Time baclofen Allergy "BLACKS Verified 04/07/17 22:04 OUT" ibuprofen [From Motrin] Allergy GABI'S Verified 04/07/17 22:04 FLARE UPS Surgical - Exam Vital Signs Temp Pulse Resp BP Pulse Ox 100.7 F H 107 H 18 102/61 95 04/07/17 20:49 04/07/17 20:49 04/07/17 20:49 04/07/17 20:49 04/07/17 20:49 Physical exam: General: Well-developed, well-nourished HEENT: Normocephalic, sclerae nonicteric Abdomen: Incisions clean and dry left midabdomen, tenderness left midabdomen, no significant tenderness on the right side of the abdomen, nondistended Extremities: No edema Neuro: Alert and oriented Results - Labs 04/07/17 22:10 04/07/17 22:10 Abnormal Lab Results - Last 24 Hours (Table) 04/07/17 04/08/17 Range/Units 22:10 00:58 WBC 16.9 H (3.8-10.6) k/uL Neutrophils # 13.4 H (1.3-7.7) k/uL Monocytes # 1.2 H (0-1.0) k/uL Ur Specific [place] >1.050 H (1.001-1.035) Urine Protein Trace H (Negative) Microbiology - Last 24 Hours (Table) 04/08/17 00:58 Urine Culture - Preliminary Urine,Voided Diabetes panel 04/07/17 Range/Units 22:10 Sodium 140 (137-145) mmol/L Potassium 4.1 (3.5-5.1) mmol/L Chloride 100 (98-107) mmol/L Carbon Dioxide 29 (22-30) mmol/L BUN 12 (9-20) mg/dL Creatinine 1.00 (0.66-1.25) mg/dL Glucose 94 (74-99) mg/dL Calcium 9.5 (8.4-10.2) mg/dL AST 25 (17-59) U/L ALT 55 (21-72) U/L Alkaline Phosphatase 52 (38-126) U/L Total Protein 7.0 (6.3-8.2) g/dL Albumin 4.1 (3.5-5.0) g/dL Calcium panel 04/07/17 Range/Units 22:10 Calcium 9.5 (8.4-10.2) mg/dL Albumin 4.1 (3.5-5.0) g/dL Pituitary panel 04/07/17 Range/Units 22:10 Sodium 140 (137-145) mmol/L Potassium 4.1 (3.5-5.1) mmol/L Chloride 100 (98-107) mmol/L Carbon Dioxide 29 (22-30) mmol/L BUN 12 (9-20) mg/dL Creatinine 1.00 (0.66-1.25) mg/dL Glucose 94 (74-99) mg/dL Calcium 9.5 (8.4-10.2) mg/dL Adrenal panel 04/07/17 Range/Units 22:10 Sodium 140 (137-145) mmol/L Potassium 4.1 (3.5-5.1) mmol/L Chloride 100 (98-107) mmol/L Carbon Dioxide 29 (22-30) mmol/L BUN 12 (9-20) mg/dL Creatinine 1.00 (0.66-1.25) mg/dL Glucose 94 (74-99) mg/dL Calcium 9.5 (8.4-10.2) mg/dL Total Bilirubin 0.8 (0.2-1.3) mg/dL AST 25 (17-59) U/L ALT 55 (21-72) U/L Alkaline Phosphatase 52 (38-126) U/L Total Protein 7.0 (6.3-8.2) g/dL Albumin 4.1 (3.5-5.0) g/dL Assessment and Plan (1) Postoperative pain Narrative/Plan: Continue antibiotics for suspected pneumonia. Repeat labs tomorrow. Modify analgesics. Current Visit: Yes Status: Acute Code(s): G89.18 - OTHER ACUTE POSTPROCEDURAL PAIN SNOMED Code(s): 457148941
[2017-04-08] MEDS: HYDROmorphone 0.5 MG/0.5 ML SYRINGE IVP PRN ×3 (13:28→20:07)
[2017-04-08] MEDS: PIPERACILLIN-TAZOBACTAM 3.375 GM in DEXTROSE/WATER 1 50ML.BAG IVPB SCH ×2 (14:44→23:54)
--- NOTE | 2017-04-08 16:46 | HP ---
HISTORY AND PHYSICAL DATE OF SERVICE: 04/08/2017. CHIEF COMPLAINT: Fever. The patient is status post surgery. BRIEF HISTORY: This is a 26-year-old male patient who presented to the ER for evaluation of worsening abdominal pain and fever. The patient underwent hernia repair about 3 to 4 days ago using the da Patricia robot laparoscopically. The patient reports that since surgery his pain has been getting progressively since he was discharged home. On day of admission he had a fever of 102. He was getting shaking chills. Also the patient relates that there is marked swelling and redness around the surgical site, which failed to subside so he decided to come to the ER. In the ED the patient had a CT scan done which showed right lower lobe pneumonia. PAST MEDICAL HISTORY: Hypertension, history of renal calculi, chronic back and knee pain, Crohn disease since age 16. PAST SURGICAL HISTORY: Significant for hernia repair and tonsillectomy, renal stone removal, repair of laceration from chainsaw on left forearm. SOCIAL HISTORY: Patient smokes a pack of cigarettes every day. He also admits to using marijuana. No IV or drug abuse or alcohol abuse. FAMILY HISTORY: Significant for brain aneurysm in mother. ALLERGIES: BACLOFEN, IBUPROFEN. MEDICATIONS: 1. Percocet 7.5 mg 1 t.i.d. p.r.n. 2. Trintellix 10 mg daily. 3. Atarax 25 mg t.i.d. 4. Colace 100 mg b.i.d. REVIEW OF SYSTEMS: Constitutional: Patient gives a history of fever and chills as described above. HEENT: No vision or hearing loss. Respiratory: Does give history of cough with carlota green phlegm and shortness of breath. Cardiovascular: No history of chest pain or palpitations. GI/abdomen: No nausea vomiting, vomiting or diarrhea. Genitourinary: No dysuria, no hematuria. Musculoskeletal: No joint swelling or effusion. No deformity. Central nervous system: No dizziness or lightheadedness. No seizures or migraine headaches. Skin: No rashes or pigmentation. Psychiatric: The patient does have history of anxiety and depression. PHYSICAL EXAMINATION: GENERAL: The patient is sleepy and lethargic but easily arousable. VITAL SIGNS: At time of presentation to the hospital, temperature of 100.7, pulse 107, respirations 18, blood pressure 102/61, O2 saturation 95%. HEENT: Atraumatic, normocephalic. Pupils equal and reactive to light. Extraocular movements intact. Buccal mucosa is fair. NECK: Supple. No goiter or lymphadenopathy. JVD is negative. No carotid bruit heard. RESPIRATORY: Diffuse bilateral wheezing and rhonchi. CARDIOVASCULAR: Heart is regular rate and rhythm without any murmurs or gallop rhythm. ABDOMEN: Left mid abdominal incision which is clean. There is no tenderness on the right side. ABDOMEN: Not distended. EXTREMITIES: No edema, clubbing cyanosis. NEUROLOGIC: The is awake, alert, oriented x3. No gross motor or sensory deficit. SKIN: Warm, dry and intact. LABORATORY DATA: CBC, white blood count of 16.9, hemoglobin 15, hematocrit 47.4, and platelet count of 263. Chemical profile: Sodium 140, potassium 4.1, chloride 103, bicarb 29, BUN 12, creatinine 1, glucose 94. Chest x-ray and CT of abdomen and pelvis shows pneumonia. ASSESSMENT: 1. Healthcare associated pneumonia. 2. Status post hernia repair with worsening postoperative pain. 3. Leukocytosis secondary to infection. 4. Hypertension, fairly controlled. PLAN: We will admit the patient to regular floor. Start patient on IV. The patient was started on IV Levaquin in the ED. Will continue that. Continue with nebulizer treatments with DuoNeb. The patient was also started on IV Zosyn in the ED, which has been discontinued. Will resume all home medications. Use oxygen per oxygen protocol. Pain control per surgical discretion. We will consult surgery to follow up on the postoperative pain and hernia repair. MMODL / IJN: [id number] /
[2017-04-08] MEDS: hydrOXYzine HCL 25 MG TAB PO SCH ×2 (17:02→22:09)
[2017-04-08] MEDS: Vortioxetine Hydrobromide [Trintellix] 10 MG PO SCH (17:03)
[2017-04-08] MEDS: DOCUSATE 100 MG CAP PO SCH (21:57)
[2017-04-08] MEDS: LEVOFLOXACIN 750MG-D5W PMX 750 MG in DEXTROSE/WATER 1 150ML.BAG IVPB SCH (22:00)
[2017-04-09] MEDS: HYDROmorphone 0.5 MG/0.5 ML SYRINGE IVP PRN ×4 (00:10→09:12)
[2017-04-09] MEDS: PIPERACILLIN-TAZOBACTAM 3.375 GM in DEXTROSE/WATER 1 50ML.BAG IVPB SCH ×3 (05:33→23:13)
[2017-04-09] MEDS: SODIUM CHLORIDE 0.9% 1,000 ML IV SCH ×2 (06:19→09:11)
[2017-04-09] MEDS: hydrOXYzine HCL 25 MG TAB PO SCH ×3 (06:20→21:28)
[2017-04-09] MEDS: oxyCODONE-APAP 7.5-325MG 1 EACH TAB PO PRN ×3 (08:22→19:17)
[2017-04-09 08:48] LABS: Anion Gap 12 mmol/L; Blood Urea Nitrogen 13 mg/dL (9-20); Calcium 8.8 mg/dL (8.4-10.2); Carbon Dioxide 24 mmol/L (22-30); Chloride 105 mmol/L (98-107); Glucose 101 mg/dL (74-99); Potassium 3.9 mmol/L (3.5-5.1); Sodium 141 mmol/L (137-145)
--- NOTE | 2017-04-09 08:51 | P.PN ---
Subjective Progress Note Date: 04/09/17 Principal diagnosis: Pneumonia, abdominal pain Patient evaluated laying in bed. He is eating his regular diet. He still says his pain is present. He states the pain is mostly at the incision sites. He had fevers once again last night. Morning labs are pending. Yesterday's chest x-ray showed worsening of his pneumonia. Objective - Vital Signs Vital signs: Vital Signs Temp 98.8 F 04/09/17 06:43 Pulse 99 04/09/17 06:43 Resp 16 04/09/17 06:43 BP 112/56 04/09/17 06:43 Pulse Ox 94 L 04/09/17 06:43 Intake & Output 04/08/17 04/09/17 04/09/17 18:59 06:59 18:59 Weight 76.204 kg Other: Voiding Method Toilet # Voids 2 1 # Bowel Movements 0 - Exam Abdomen: Soft, mild diffuse tenderness, moderate tenderness left midabdomen, incisions clean and dry - Labs CBC & Chem 7: 04/07/17 22:10 04/07/17 22:10 Labs: Microbiology - Last 24 Hours (Table) 04/08/17 10:45 Gram Stain - Preliminary Sputum 04/07/17 22:10 Blood Culture - Preliminary Blood No Growth after 24 hours 04/08/17 00:58 Urine Culture - Preliminary Urine,Voided Assessment and Plan (1) Postoperative pain Narrative/Plan: Continue diet as tolerated. Continue antibiotics for pneumonia. Await morning labs. If abdominal pain persists may consider repeating CAT scan. Current Visit: Yes Status: Acute Code(s): G89.18 - OTHER ACUTE POSTPROCEDURAL PAIN SNOMED Code(s): 695309726
[2017-04-09 08:57] LABS: Basophils % (A) 0 %; Eosinophils # (A) 0.2 k/uL (0-0.7); Eosinophils % (A) 1 %; HCT 42.7 % (39.0-53.0); HGB 13.8 gm/dL (13.0-17.5); Lymphocytes # (A) 1.7 k/uL (1.0-4.8); Lymphocytes % (A) 14 %; MCHC 32.3 g/dL (31.0-37.0); MCV 92.7 fL (80.0-100.0); Mean Platelet Volume 6.6; Monocytes % (A) 8 %; Neutrophils # (A) 9.6 k/uL (1.3-7.7); Neutrophils % (A) 76 %; Platelet Count 244 k/uL (150-450); RDW 13.1 % (11.5-15.5); WBC 12.6 k/uL (3.8-10.6)
[2017-04-09] MEDS: IPRATROPIUM-ALBUTEROL 3 ML NEB INHALATION PRN ×4 (09:02→23:29)
[2017-04-09] MEDS: DOCUSATE 100 MG CAP PO SCH ×2 (09:11→21:28)
[2017-04-09] MEDS: HYDROmorphone 4 MG TABLET PO PRN ×4 (12:03→21:29)
[2017-04-09] MEDS: Vortioxetine Hydrobromide [Trintellix] 10 MG PO SCH (13:08)
--- NOTE | 2017-04-09 20:27 | PN ---
PROGRESS NOTE DATE OF SERVICE: 04/09/2017 The patient is seen in the room sitting in the bedside chair and claims that he has started eating a regular diet, still having some abdominal pain and claims he wants to go home. Vital signs: Temperature of 98.8, pulse 99, respirations 16, blood pressure 112/56, O2 saturation 96%. HEENT: Atraumatic, normocephalic. Pupils equal, round and reactive to light. Extraocular movements intact. Buccal mucosa is moist. Neck is supple. No goiter, lymphadenopathy. JVD is negative. No carotid bruit heard. Lungs are clear to auscultation. No rales, rhonchi, wheezes. Heart is regular rate and rhythm without any murmurs, gallop rhythm. Abdomen is soft. Mild diffuse tenderness, more so in the left mid abdominal area. Incision is clean. LAB: CBC: White blood count 16.9, hemoglobin 15, hematocrit 47.4, and platelet count of 263. Chemical profile: Sodium 140, potassium 4.1, chloride 103, bicarb 29, BUN 12, creatinine 1.0. ASSESSMENT: 1. Healthcare associated pneumonia. 2. Status post hernia repair with worsening postoperative pain. 3. Leukocytosis secondary to infection. 4. Hypertension. The patient's repeat chest x-ray does show worsening, but clinically patient is improving. Will continue patient on IV Zosyn and Levaquin. No need to change IV antibiotics. Continue with nebulizer treatments with DuoNeb. The patient was encouraged to have incentive spirometry. Will monitor closely and possible discharge in next 24 to 48 hours if patient remains stable. MMODL / IJN: [id number] /
[2017-04-09] MEDS: LEVOFLOXACIN 750MG-D5W PMX 750 MG in DEXTROSE/WATER 1 150ML.BAG IVPB SCH (20:29)
[2017-04-10] MEDS: HYDROmorphone 4 MG TABLET PO PRN ×3 (03:48→09:31)
[2017-04-10] MEDS: SODIUM CHLORIDE 0.9% 1,000 ML IV SCH ×2 (03:51→12:03)
[2017-04-10] MEDS: PIPERACILLIN-TAZOBACTAM 3.375 GM in DEXTROSE/WATER 1 50ML.BAG IVPB SCH (05:08)
[2017-04-10] MEDS: oxyCODONE-APAP 7.5-325MG 1 EACH TAB PO PRN ×2 (05:12→12:02)
[2017-04-10 06:20] VITALS: BP 117/66; RESP 14; TEMP 98.5
[2017-04-10] MEDS: IPRATROPIUM-ALBUTEROL 3 ML NEB INHALATION PRN ×2 (06:54→10:39)
[2017-04-10] MEDS: hydrOXYzine HCL 25 MG TAB PO SCH (08:12)
[2017-04-10] MEDS: DOCUSATE 100 MG CAP PO SCH (08:13)
[2017-04-10] MEDS: Vortioxetine Hydrobromide [Trintellix] 10 MG PO SCH (08:19)
[2017-04-10 08:50] LABS: Basophils % (A) 0 %; Eosinophils # (A) 0.3 k/uL (0-0.7); Eosinophils % (A) 3 %; HCT 44.1 % (39.0-53.0); HGB 13.9 gm/dL (13.0-17.5); Lymphocytes % (A) 26 %; MCH 29.1 pg (25.0-35.0); MCHC 31.6 g/dL (31.0-37.0); MCV 92.2 fL (80.0-100.0); Mean Platelet Volume 6.6; Monocytes # (A) 0.7 k/uL (0-1.0); Monocytes % (A) 9 %; Neutrophils # (A) 4.7 k/uL (1.3-7.7); Neutrophils % (A) 60 %; Platelet Count 264 k/uL (150-450); RBC 4.78 m/uL (4.30-5.90); RDW 13.1 % (11.5-15.5); WBC 7.9 k/uL (3.8-10.6)
[2017-04-10] MEDS ORDERED: NICOTINE 21MG/24HR PATCH TRANSDERM SCH (09:00)
[2017-04-10 09:04] LABS: ALT 47 U/L (21-72); AST 25 U/L (17-59); Albumin 3.9 g/dL (3.5-5.0); Alkaline Phosphatase 43 U/L (38-126); Anion Gap 12 mmol/L; Blood Urea Nitrogen 12 mg/dL (9-20); Calcium 9.3 mg/dL (8.4-10.2); Carbon Dioxide 26 mmol/L (22-30); Chloride 105 mmol/L (98-107); Glucose 103 mg/dL (74-99); Potassium 4.3 mmol/L (3.5-5.1); Sodium 143 mmol/L (137-145); Total Bilirubin 0.5 mg/dL (0.2-1.3); Total Protein 6.6 g/dL (6.3-8.2)
[2017-04-10 10:49] VITALS: PULSE 78
--- NOTE | 2017-04-10 11:25 | P.PN ---
Subjective Progress Note Date: 04/10/17 26 year old male seen and examined at bedside. Currently this morning is denying abdominal pain no reports of nausea vomiting. Afebrile 98.5. White count down. Patient is postop April 05 hernia repair laparoscopic using [place] robot. Patient does have a CAT scan on admission it did show right lower lobe pneumonia. Patient started on antibiotics by the attending. Mild induration at the surgical site without evidence of surgical site infection. Patient states she's been up ambulating in the [place] anxious to be discharged Objective - Vital Signs Vital signs: Vital Signs Temp 98.5 F 04/10/17 06:10 Pulse 78 04/10/17 10:49 Resp 14 04/10/17 06:10 BP 117/66 04/10/17 06:10 Pulse Ox 98 04/10/17 06:56 Intake & Output 04/09/17 04/10/17 04/10/17 18:59 06:59 18:59 Output Total 500 Balance -500 Output: Urine 500 Other: Voiding Method Toilet Toilet # Voids 2 - Exam exam Abdomen flat nondistended nontender surgical dressing sites dry bowel tones present reports no nausea vomiting tolerating diet passing gas urinating no difficulty no nausea vomiting - Labs CBC & Chem 7: 04/10/17 07:54 04/10/17 07:54 Labs: Abnormal Lab Results - Last 24 Hours (Table) 04/10/17 Range/Units 07:54 Glucose 103 H (74-99) mg/dL Microbiology - Last 24 Hours (Table) 04/08/17 10:45 Gram Stain - Final Sputum Sputum Culture - Final 04/07/17 22:10 Blood Culture - Preliminary Blood No Growth after 48 hours 04/08/17 00:58 Urine Culture - Final Urine,Voided Assessment and Plan Assessment: Impression CAT scan abdomen and pelvis showed evidence to suggest right lower lobe pneumonia Postop surgical pain Postop 05 of April laparoscopic robotic system repair of an incarcerated umbilical hernia Active current every day smoker Plan From a surgical perspective patient is felt to be clinically stable to be discharged home defer to the timing to the attending Pain control Continue postop surgical care Defer to the attending to address antibiotics for right lobe pneumonia Patient's been advised to stop smoking cigarettes Progress note dictated for Dr. de luna The above impression and plan of care have been discussed and directed by signing physician. Dayna Hoffman nurse practitioner acting as scribe for signing physician.
[2017-04-10] MEDS ORDERED: LEVOFLOXACIN 750 MG TAB PO SCH (21:00)
--- NOTE | 2017-04-11 06:08 | DS ---
DISCHARGE SUMMARY DATE OF SERVICE: 04/10/2017. FINAL DIAGNOSES: 1. Healthcare associated pneumonia. 2. Status post hernia repair and worsening postoperative improved. 3. Leukocytosis secondary to infection. 4. Hypertension. DISCHARGE DISPOSITION: The patient will be discharged in stable condition with guarded prognosis. HISTORY OF PRESENT ILLNESS: This 26-year-old gentleman with past medical history of multiple medical problems admitted with pneumonia and other multiple medical issues. Patient was treated symptomatically. Patient improved significantly. On exam, vitals are stable. CARDIOVASCULAR: S1 and S2, muffled. ABDOMEN: Soft. NERVOUS SYSTEM: No deficits. DISCHARGE ADVICE: 1. Diet is cardiac. 2. Activity limited until followup. 3. Follow up with Dr. Vaughn in 2 to 3 days. 4. Follow up with Surgery and Pulmonary as advised. Medications are: 1. Augmentin 875 mg p.o. b.i.d. for 5 days. 2. Colace 100 mg p.o. b.i.d. 3. Atarax that is 25 mg p.o. t.i.d. p.r.n. 4. Habitrol 21 daily. 5. Oxycodone 7.5 mg t.i.d. p.r.n. 6. Vortioxetine 10 mg p.o. daily. Once again, the patient will be discharged in a stable condition with a guarded prognosis. MMODL / IJN: [id number] /
== END 2017-04-10 13:34 | disposition home or self-care (01) | DRG 194 ==
LOC: EC 20:03 → 4MS4W 23:51
PROVIDERS: ADMIT Hospitalist; ATTEND Hospitalist
DX: J18.9 Pneumonia, unspecified organism (principal); K50.90 Crohn's disease, unspecified, without complications; F12.90 Cannabis use, unspecified, uncomplicated; Y95 Nosocomial condition; F17.210 Nicotine dependence, cigarettes, uncomplicated; I10 Essential (primary) hypertension; G89.18 Other acute postprocedural pain; Z87.442 Personal history of urinary calculi
CPT/HCPCS: 36415; 71046; 74177; 80048; 80053; 81003; 83605; 85025; 87040; 87070; 87086; 87205; 87502; 88302; 94640; 94760; 96365; 96367; 96375; 99285

== ENCOUNTER 2017-05-31 18:03 | Emergency (ER) | payer MEDICARE, OTHER ==
[2017-05-31] MEDS ORDERED: RX INFO: IV CONTRAST WAS GIVEN 1 EACH MISC MISCELLANE PRN (20:45)
[2017-05-31 21:10] LABS: Basophils % (A) 0 %; Eosinophils # (A) 0.2 k/uL (0-0.7); Eosinophils % (A) 2 %; HCT 46.4 % (39.0-53.0); HGB 15.3 gm/dL (13.0-17.5); Lymphocytes # (A) 2.8 k/uL (1.0-4.8); Lymphocytes % (A) 21 %; MCH 29.3 pg (25.0-35.0); MCV 88.9 fL (80.0-100.0); Mean Platelet Volume 6.4; Monocytes % (A) 8 %; Neutrophils # (A) 9.2 k/uL (1.3-7.7); Neutrophils % (A) 69 %; Platelet Count 332 k/uL (150-450); RBC 5.22 m/uL (4.30-5.90); RDW 13.6 % (11.5-15.5); WBC 13.4 k/uL (3.8-10.6)
[2017-05-31 21:19] LABS: ALT 124 U/L (21-72); AST 53 U/L (17-59); Albumin 4.6 g/dL (3.5-5.0); Alkaline Phosphatase 52 U/L (38-126); Anion Gap 16 mmol/L; Blood Urea Nitrogen 11 mg/dL (9-20); Calcium 9.5 mg/dL (8.4-10.2); Carbon Dioxide 22 mmol/L (22-30); Chloride 107 mmol/L (98-107); Glucose 93 mg/dL (74-99); Potassium 4.1 mmol/L (3.5-5.1); Sodium 145 mmol/L (137-145); Total Bilirubin 0.4 mg/dL (0.2-1.3); Total Protein 7.1 g/dL (6.3-8.2)
[2017-05-31 21:27] LABS: INR 1.1 (<1.2); Partial Thromboplastin Time 24.5 sec (22.0-30.0); Prothrombin Time 10.3 sec (9.0-12.0)
--- NOTE | 2017-05-31 21:43 | CT ---
EXAMINATION TYPE: CT abdomen pelvis w con DATE OF EXAM: 05/31/2017 COMPARISON: CT abdomen and pelvis April 07, 2017 HISTORY: Hernia repair March 2017. Abdominal pain with blood in stool. CT DLP: 540.7 mGycm, Automated Exposure Control for Dose Reduction was Utilized. CONTRAST: CT scan of the abdomen and pelvis is performed without oral but with IV Contrast, patient injected wi th 100 mL of Isovue 300. FINDINGS: LUNG BASES: No significant abnormality is appreciated. LIVER/GB: No significant abnormality is appreciated. PANCREAS: No significant abnormality is seen. SPLEEN: No significant abnormality is seen. ADRENALS: No significant abnormality is seen. KIDNEYS: There is redemonstration of 3 renal calculi left kidney measuring up to 6 mm in size lower p ole level coronal image 54 not significant changed from prior. There are 2 small calculi upper pole o f the right kidney redemonstrated. There is interval passage of larger calculus upper pole calyx terry uring 7 mm long axis prior study coronal image 58 into collecting system now at [facility] coronal image 52. There is symmetric cortical medullary uptake and excretion without evidence of hydronephrosis bilate rally. There are stable subcentimeter low dense partially exophytic lesion lower pole of left kidney felt to reflect simple cyst on axial image 31 series 5. Bladder is poorly distended and thus suboptim ally evaluated. Wall thickness measures up to 13 mm, a cystitis cannot be excluded correlate clinica lly. BOWEL: Evaluation of bowel is suboptimal secondary to lack of enteric contrast. There is no suspiciou s small or large bowel dilatation. There is mild to moderate wall thickening in the transverse colon now noted. There hard additional areas of mild wall thickening in the sigmoid colon for reference axi al image 65 presacral space and in distal ileal loop anterior to this axial image 69. PROSTATE/SEMINAL VESICLES: No gross abnormality seen. LYMPH NODES: No greater than 1cm abdominal or pelvic lymph nodes are appreciated. OSSEOUS STRUCTURES: Transitional type vertebra lumbosacral junction is redemonstrated. Prominent Schm orl node superior T12 endplate is again seen. OTHER: No significant additional abnormality is seen. IMPRESSION: 1. Bilateral nephrolithiasis redemonstrated. Largest 7 mm stone right kidney upper pole level has sayda nged position in the interval from prior CT now at [facility] but is not causing delayed excretion or signif icant hydronephrosis. Possible cystitis, correlate clinically. 2. Suboptimal evaluation of bowel, areas of acute enterocolitis cannot be excluded as detailed above.
[2017-05-31] MEDS ORDERED: MORPHINE SULFATE 4MG/4ML SYRG IVP STA (21:54)
[2017-05-31] MEDS ORDERED: ONDANSETRON 4 MG/2 ML VIAL IVP STA (21:55)
[2017-05-31 21:57] LABS: Appearance,Urine Cloudy (Clear); Bilirubin,Urine Negative (Negative); Blood,Urine Trace (Negative); Color,Urine Yellow; Glucose,Urine (UA) Negative (Negative); Hyaline Casts,Urine 6 /lpf (0-2); Ketones,Urine Trace (Negative); Leukocyte Esterase,Urine Negative (Negative); Mucus,Urine Many /hpf; Nitrite,Urine Negative (Negative); Protein,Urine 2+ (Negative); RBC,Urine 44 /hpf (0-5); Specific Gravity,Urine 1.032 (1.001-1.035); Sperm,Urine Rare /hpf; Squamous Epithelial Cell,Urine 1 /hpf (0-4); WBC,Urine 6 /hpf (0-5)
--- NOTE | 2017-05-31 23:22 | ED ---
Abdominal Pain HPI - General Chief Complaint: Abdominal Pain Stated Complaint: post hernia surgery/muscle weakness & pain Time Seen by Provider: 05/31/17 20:50 Source: patient Mode of arrival: ambulatory Limitations: no limitations - History of Present Illness Initial Comments: 26-year-old male patient presents to the emergency department stay for complaints of left-sided abdominal pain. Patient states that he had a hernia repair at the end of March with Dr. Dash states he has been having pain to the left abdomen since then however pain became much worse after a fall 2 days ago. Patient states that he fell from a trailer striking the left side of his abdomen on the side rail. States that he has had blood in his stool since then as well. He denies any fevers or chills with this. States he is feeling nauseated but has not vomited. He denies any constipation or diarrhea. Denies any hematuria, dysuria, urinary frequency, urinary urgency. Patient denies any recent rash, shortness breath, chest pain, back pain, numbness, tingling, dizziness, weakness, headache, visual changes, or any other complaints. - Related Data Home Medications Medication Instructions Recorded Confirmed oxyCODONE-APAP 7.5-325MG [Percocet 1 tab PO TID PRN 03/20/17 04/07/17 7.5-325 mg] Vortioxetine Hydrobromide 10 mg PO DAILY 03/31/17 04/07/17 [Trintellix] hydrOXYzine HCL [Atarax] 25 mg PO TID 03/31/17 04/07/17 Previous Rx's Medication Instructions Recorded Docusate [Colace] 100 mg PO BID #20 capsule 04/05/17 Amoxic-Pot Clav 875-125Mg 1 tab PO Q12HR #10 tablet 04/10/17 [Augmentin 875-125] Nicotine 21Mg/24Hr Patch [Habitrol] 1 patch TRANSDERM DAILY #30 patch 04/10/17 Ciprofloxacin HCl [Cipro] 500 mg PO Q12HR #20 tablet 05/31/17 metroNIDAZOLE [Flagyl] 500 mg PO QID #40 tab 05/31/17 Allergies Allergy/AdvReac Type Severity Reaction Status Date / Time baclofen Allergy "BLACKS Verified 05/31/17 19:00 OUT" ibuprofen [From Motrin] Allergy GABI'S Verified 05/31/17 19:00 FLARE UPS Review of Systems ROS Statement: Those systems with pertinent positive or pertinent negative responses have been documented in the HPI. ROS Other: All systems not noted in ROS Statement are negative. Past Medical History Past Medical History: Hypertension, Pneumonia Additional Past Medical History / Comment(s): kidney stones, chonic back and knee pain, hernia, Crohns dx. at age 16. Patient states he takes Zestril prn if his BP is high. History of Any Multi-Drug Resistant Organisms: None Reported Past Surgical History: Hernia Repair, Tonsillectomy Additional Past Surgical History / Comment(s): kidney stone removal, repair of lacerations from chain saw, L forearm and L toe. Additional Past Anesthesia/Blood Transfusion Reaction / Comment(s): Severe anxiety when waking up from anesthesia. Past Psychological History: Anxiety, Depression Smoking Status: Current every day smoker Past Alcohol Use History: None Reported Past Drug Use History: Marijuana - Past Family History Mother Additional Family Medical History / Comment(s): Brain aneurysm General Exam Limitations: no limitations General appearance: alert, in no apparent distress, other (This is a well- developed, well-nourished adult male patient in no acute distress. Vital signs upon presentation are temperature 98.7F, pulse 105, respirations 20, blood pressure 130/83, pulse ox 97% on room air.) Eye exam: Present: normal appearance, PERRL, EOMI. Absent: scleral icterus, conjunctival injection, periorbital swelling ENT exam: Present: normal exam, normal oropharynx, mucous membranes moist Respiratory exam: Present: normal lung sounds bilaterally. Absent: respiratory distress, wheezes, rales, rhonchi, stridor Cardiovascular Exam: Present: regular rate, normal rhythm, normal heart sounds. Absent: systolic murmur, diastolic murmur, rubs, gallop, clicks GI/Abdominal exam: Present: soft, tenderness (Left-sided abdominal tenderness), normal bowel sounds, other (Upper scalp incisions are approximated and healing.) . Absent: distended, guarding, rebound, rigid Neurological exam: Present: alert, oriented X3, CN II-XII intact Psychiatric exam: Present: normal affect, normal mood Skin exam: Present: warm, dry, intact, normal color. Absent: rash Course Vital Signs 05/31/17 05/31/17 05/31/17 18:58 20:31 21:43 Temperature 98.7 F 98.1 F Pulse Rate 105 H 101 H 91 Respiratory 20 18 18 Rate Blood Pressure 130/83 128/85 160/78 O2 Sat by Pulse 97 97 98 Oximetry 05/31/17 05/31/17 05/31/17 22:15 23:13 23:35 Temperature 98.1 F 98.2 F Pulse Rate 82 92 103 H Respiratory 18 20 Rate Blood Pressure 145/88 153/97 155/84 O2 Sat by Pulse 98 96 98 Oximetry Medical Decision Making - Medical Decision Making 26 year-old male patient presented to emergency department today for evaluation of left-sided abdominal pain after hernia surgery and a fall. Physical examination did reveal left-sided abdominal tenderness. Labs reviewed and did reveal a mildly elevated white blood cell count at 13.9. Urinalysis did show some red blood cells, white blood cells, and mucus. Urine was sent for culture. CT of the abdomen and pelvis was obtained and did show possible enterocolitis. We will treat patient with Kannanro and Flagjeff for this and have him follow up with his primary care physician as well as a surgeon as soon as possible. Kannanro will also treat urinary tract infection if culture is positive. Upon reevaluation patient was still complaining of significant pain. He did end up admitting that he ran out of his Percocet a few days ago. He does have a pain contract with Dr. Abarca, I did discuss that his contract would be violated if I prescribed him any narcotic pain medication. He is instructed to return here immediately for any new, worsening, or concerning symptoms. He verbalizes understanding and agrees with this plan. - Lab Data Result diagrams: 05/31/17 21:00 05/31/17 21:00 Lab Results 05/31/17 05/31/17 05/31/17 Range/Units 21:00 21:00 21:00 WBC 13.4 H (3.8-10.6) k/uL RBC 5.22 (4.30-5.90) m/uL Hgb 15.3 (13.0-17.5) gm/dL Hct 46.4 (39.0-53.0) % MCV 88.9 (80.0-100.0) fL MCH 29.3 (25.0-35.0) pg MCHC 33.0 (31.0-37.0) g/dL RDW 13.6 (11.5-15.5) % Plt Count 332 (150-450) k/uL Neutrophils % 69 % Lymphocytes % 21 % Monocytes % 8 % Eosinophils % 2 % Basophils % 0 % Neutrophils # 9.2 H (1.3-7.7) k/uL Lymphocytes # 2.8 (1.0-4.8) k/uL Monocytes # 1.0 (0-1.0) k/uL Eosinophils # 0.2 (0-0.7) k/uL Basophils # 0.0 (0-0.2) k/uL PT 10.3 (9.0-12.0) sec INR 1.1 (<1.2) APTT 24.5 (22.0-30.0) sec Sodium 145 (137-145) mmol/L Potassium 4.1 (3.5-5.1) mmol/L Chloride 107 (98-107) mmol/L Carbon Dioxide 22 (22-30) mmol/L Anion Gap 16 mmol/L BUN 11 (9-20) mg/dL Creatinine 0.90 (0.66-1.25) mg/dL Est GFR (CKD-EPI)AfAm >90 (>60 ml/min/1.73 sqM) Est GFR (CKD-EPI)NonAf >90 (>60 ml/min/1.73 sqM) Glucose 93 (74-99) mg/dL Calcium 9.5 (8.4-10.2) mg/dL Total Bilirubin 0.4 (0.2-1.3) mg/dL AST 53 (17-59) U/L ALT 124 H (21-72) U/L Alkaline Phosphatase 52 (38-126) U/L Total Protein 7.1 (6.3-8.2) g/dL Albumin 4.6 (3.5-5.0) g/dL Urine Color Urine Appearance (Clear) Urine pH (5.0-8.0) Ur Specific [place] (1.001-1.035) Urine Protein (Negative) Urine Glucose (UA) (Negative) Urine Ketones (Negative) Urine Blood (Negative) Urine Nitrite (Negative) Urine Bilirubin (Negative) Urine Urobilinogen (<2.0) mg/dL Ur Leukocyte Esterase (Negative) Urine RBC (0-5) /hpf Urine WBC (0-5) /hpf Ur Squamous Epith Cells (0-4) /hpf Hyaline Casts (0-2) /lpf Urine Mucus (None) /hpf Urine Sperm (None) /hpf Stool Occult Blood (Negative) 05/31/17 05/31/17 Range/Units 21:46 21:53 WBC (3.8-10.6) k/uL RBC (4.30-5.90) m/uL Hgb (13.0-17.5) gm/dL Hct (39.0-53.0) % MCV (80.0-100.0) fL MCH (25.0-35.0) pg MCHC (31.0-37.0) g/dL RDW (11.5-15.5) % Plt Count (150-450) k/uL Neutrophils % % Lymphocytes % % Monocytes % % Eosinophils % % Basophils % % Neutrophils # (1.3-7.7) k/uL Lymphocytes # (1.0-4.8) k/uL Monocytes # (0-1.0) k/uL Eosinophils # (0-0.7) k/uL Basophils # (0-0.2) k/uL PT (9.0-12.0) sec INR (<1.2) APTT (22.0-30.0) sec Sodium (137-145) mmol/L Potassium (3.5-5.1) mmol/L Chloride (98-107) mmol/L Carbon Dioxide (22-30) mmol/L Anion Gap mmol/L BUN (9-20) mg/dL Creatinine (0.66-1.25) mg/dL Est GFR (CKD-EPI)AfAm (>60 ml/min/1.73 sqM) Est GFR (CKD-EPI)NonAf (>60 ml/min/1.73 sqM) Glucose (74-99) mg/dL Calcium (8.4-10.2) mg/dL Total Bilirubin (0.2-1.3) mg/dL AST (17-59) U/L ALT (21-72) U/L Alkaline Phosphatase (38-126) U/L Total Protein (6.3-8.2) g/dL Albumin (3.5-5.0) g/dL Urine Color Yellow Urine Appearance Cloudy (Clear) Urine pH 6.0 (5.0-8.0) Ur Specific [place] 1.032 (1.001-1.035) Urine Protein 2+ H (Negative) Urine Glucose (UA) Negative (Negative) Urine Ketones Trace H (Negative) Urine Blood Trace H (Negative) Urine Nitrite Negative (Negative) Urine Bilirubin Negative (Negative) Urine Urobilinogen 3.0 (<2.0) mg/dL Ur Leukocyte Esterase Negative (Negative) Urine RBC 44 H (0-5) /hpf Urine WBC 6 H (0-5) /hpf Ur Squamous Epith Cells 1 (0-4) /hpf Hyaline Casts 6 H (0-2) /lpf Urine Mucus Many H (None) /hpf Urine Sperm Rare (None) /hpf Stool Occult Blood Negative (Negative) - Radiology Data Radiology results: report reviewed, image reviewed CT of the abdomen and pelvis was obtained, report was reviewed in its entirety. Impression by Dr. Kelley shows bilateral nephrolithiasis redemonstrated. Largest a 7 mm stone in the right upper pole level has change position in the interval from prior CT now at the [facility] but is not causing delayed excretion or significant hydronephrosis. Possible cystitis, correlate clinically. Suboptimal evaluation of bowel, areas of acute enterocolitis cannot be excluded as detailed above. Disposition Clinical Impression: Enterocolitis Disposition: HOME SELF-CARE Condition: Good Instructions: Colitis (ED) Additional Instructions: Take medications as prescribed. Follow-up with your primary care physician and your surgeon for further evaluation. Return here immediately for any new, worsening, or concerning symptoms. Prescriptions: Ciprofloxacin HCl [Cipro] 500 mg PO Q12HR #20 tablet metroNIDAZOLE [Flagyl] 500 mg PO QID #40 tab Is patient prescribed a controlled substance at discharge?: No Referrals: Rose Vaughn MD [Primary Care Provider] - 1-2 days Time of Disposition: 23:22
[2017-05-31 23:41] VITALS: BP 155/84; PULSE 103; RESP 20; TEMP 98.2
== END 2017-05-31 23:35 | disposition home or self-care (01) ==
LOC: EC 18:03
DX: K52.9 Noninfective gastroenteritis and colitis, unspecified (principal); F32.9 Major depressive disorder, single episode, unspecified; F17.200 Nicotine dependence, unspecified, uncomplicated; Z98.890 Other specified postprocedural states; Z79.899 Other long term (current) drug therapy; Z88.8 Allergy status to other drugs, medicaments and biological substances; Z88.6 Allergy status to analgesic agent
CPT/HCPCS: 36415; 80053; 85025; 85610; 85730; 82272; 81001; 74177; 99284; 96374; 96375; J2405; Q9967; J2270; 87086

== ENCOUNTER 2017-07-28 12:54 | Emergency (ER) | payer MEDICARE, OTHER ==
[2017-07-28 13:28] VITALS: RESP 18
[2017-07-28] MEDS ORDERED: METOCLOPRAMIDE 5 MG/ML 2 ML VIAL IVP STA (14:00)
[2017-07-28] MEDS ORDERED: SODIUM CHLORIDE 0.9% 1,000 ML IV STA (14:00)
[2017-07-28] MEDS ORDERED: KETOROLAC 30 MG/ML 1 ML VIAL IVP STA (14:00)
--- NOTE | 2017-07-28 14:07 | ED ---
General Adult HPI - General Chief complaint: Nausea/Vomiting/Diarrhea Stated complaint: vomiting Time Seen by Provider: 07/28/17 13:37 Source: patient, RN notes reviewed Mode of arrival: ambulatory Limitations: no limitations - History of Present Illness Initial comments: Patient is a pleasant 26-year-old male presenting to the emergency department with complaints of nausea and vomiting, diarrhea, abdominal pain, fever, and kidney stones. Patient states symptoms have been occurring past week. Patient has had 3 visits to [facility] Monday and Monday. One day he was diagnosed with a viral infection. One day he was diagnosed with Crohn's flareup. One day he was diagnosed with kidney stone. Patient does have a history of all of these. Patient also did see his doctor. Patient believes he has been having fevers up to 100. Patient was told he had some blood in his urine. Abdominal discomfort is diffuse. - Related Data Home Medications Medication Instructions Recorded Confirmed Vortioxetine Hydrobromide 10 mg PO DAILY 03/31/17 07/28/17 [Trintellix] Ondansetron [Zofran ODT] 4 mg PO Q8HR PRN 07/28/17 07/28/17 Tamsulosin HCl [Flomax] 0.4 mg PO DAILY 07/28/17 07/28/17 hydrOXYzine HCL [Atarax] 10 mg PO TID 07/28/17 07/28/17 oxyCODONE HCL/ACETAMINOPHEN 1 tab PO TID PRN 07/28/17 07/28/17 [Percocet 10-325 mg] Allergies Allergy/AdvReac Type Severity Reaction Status Date / Time baclofen Allergy "BLACKS Verified 07/28/17 14:04 OUT" ibuprofen [From Motrin] Allergy GABI'S Verified 07/28/17 14:04 FLARE UPS Review of Systems ROS Statement: Those systems with pertinent positive or pertinent negative responses have been documented in the HPI. ROS Other: All systems not noted in ROS Statement are negative. Constitutional: Reports: fever Eyes: Denies: eye pain ENT: Denies: ear pain Respiratory: Denies: dyspnea Cardiovascular: Denies: chest pain Endocrine: Reports: fatigue Gastrointestinal: Reports: abdominal pain, nausea, vomiting, diarrhea Genitourinary: Reports: hematuria Skin: Denies: rash Neurological: Denies: headache Past Medical History Past Medical History: Hypertension, Pneumonia Additional Past Medical History / Comment(s): kidney stones, chonic back and knee pain, hernia, Crohns dx. at age 16. Patient states he takes Zestril prn if his BP is high. History of Any Multi-Drug Resistant Organisms: None Reported Past Surgical History: Hernia Repair, Tonsillectomy Additional Past Surgical History / Comment(s): kidney stone removal, repair of lacerations from chain saw, L forearm and L toe. Additional Past Anesthesia/Blood Transfusion Reaction / Comment(s): Severe anxiety when waking up from anesthesia. Past Psychological History: Anxiety, Depression Smoking Status: Current every day smoker Past Alcohol Use History: None Reported Past Drug Use History: Marijuana - Past Family History Mother Additional Family Medical History / Comment(s): Brain aneurysm General Exam Limitations: no limitations General appearance: alert, in no apparent distress Head exam: Present: atraumatic Eye exam: Present: normal appearance, PERRL ENT exam: Present: normal oropharynx Neck exam: Present: normal inspection Respiratory exam: Present: normal lung sounds bilaterally Cardiovascular Exam: Present: regular rate, normal rhythm Expanded Peripheral pulses: 2+: Posterior Tibialis (R), Posterior Tibialis (L) GI/Abdominal exam: Present: soft, tenderness (Mild diffuse tenderness), normal bowel sounds. Absent: distended, guarding, rebound, rigid, pulsatile mass Extremities exam: Present: normal inspection. Absent: pedal edema, calf tenderness Back exam: Absent: CVA tenderness (R), CVA tenderness (L) Neurological exam: Present: alert Psychiatric exam: Present: normal affect, normal mood Skin exam: Present: normal color Course Vital Signs 07/28/17 13:26 Temperature 98.5 F Pulse Rate 82 Respiratory 18 Rate Blood Pressure 127/73 O2 Sat by Pulse 100 Oximetry Medical Decision Making - Medical Decision Making Patient reevaluated and resting comfortably in bed. Patient updated on results and need for follow-up, especially regarding follow-up with urology. - Lab Data Result diagrams: 07/28/17 14:40 07/28/17 14:40 Lab Results 07/28/17 07/28/17 07/28/17 Range/Units 14:40 14:40 14:40 WBC 8.3 (3.8-10.6) k/uL RBC 4.79 (4.30-5.90) m/uL Hgb 14.3 (13.0-17.5) gm/dL Hct 41.7 (39.0-53.0) % MCV 87.0 (80.0-100.0) fL MCH 29.8 (25.0-35.0) pg MCHC 34.3 (31.0-37.0) g/dL RDW 13.1 (11.5-15.5) % Plt Count 311 (150-450) k/uL Neutrophils % 63 % Lymphocytes % 25 % Monocytes % 8 % Eosinophils % 1 % Basophils % 0 % Neutrophils # 5.2 (1.3-7.7) k/uL Lymphocytes # 2.1 (1.0-4.8) k/uL Monocytes # 0.6 (0-1.0) k/uL Eosinophils # 0.1 (0-0.7) k/uL Basophils # 0.0 (0-0.2) k/uL PT 10.4 (9.0-12.0) sec INR 1.1 (<1.2) APTT 24.9 (22.0-30.0) sec Sodium 143 (137-145) mmol/L Potassium 3.8 (3.5-5.1) mmol/L Chloride 108 H (98-107) mmol/L Carbon Dioxide 24 (22-30) mmol/L Anion Gap 11 mmol/L BUN 9 (9-20) mg/dL Creatinine 1.08 (0.66-1.25) mg/dL Est GFR (CKD-EPI)AfAm >90 (>60 ml/min/1.73 sqM) Est GFR (CKD-EPI)NonAf >90 (>60 ml/min/1.73 sqM) Glucose 90 (74-99) mg/dL Calcium 9.2 (8.4-10.2) mg/dL Total Bilirubin 0.4 (0.2-1.3) mg/dL AST 53 (17-59) U/L ALT 135 H (21-72) U/L Alkaline Phosphatase 39 (38-126) U/L Total Protein 6.5 (6.3-8.2) g/dL Albumin 4.1 (3.5-5.0) g/dL Amylase 46 (30-110) U/L Lipase 167 (23-300) U/L Urine Color Urine Appearance (Clear) Urine pH (5.0-8.0) Ur Specific [place] (1.001-1.035) Urine Protein (Negative) Urine Glucose (UA) (Negative) Urine Ketones (Negative) Urine Blood (Negative) Urine Nitrite (Negative) Urine Bilirubin (Negative) Urine Urobilinogen (<2.0) mg/dL Ur Leukocyte Esterase (Negative) Urine RBC (0-5) /hpf Urine WBC (0-5) /hpf Ur Squamous Epith Cells (0-4) /hpf Hyaline Casts (0-2) /lpf Urine Mucus (None) /hpf 07/28/17 Range/Units 14:40 WBC (3.8-10.6) k/uL RBC (4.30-5.90) m/uL Hgb (13.0-17.5) gm/dL Hct (39.0-53.0) % MCV (80.0-100.0) fL MCH (25.0-35.0) pg MCHC (31.0-37.0) g/dL RDW (11.5-15.5) % Plt Count (150-450) k/uL Neutrophils % % Lymphocytes % % Monocytes % % Eosinophils % % Basophils % % Neutrophils # (1.3-7.7) k/uL Lymphocytes # (1.0-4.8) k/uL Monocytes # (0-1.0) k/uL Eosinophils # (0-0.7) k/uL Basophils # (0-0.2) k/uL PT (9.0-12.0) sec INR (<1.2) APTT (22.0-30.0) sec Sodium (137-145) mmol/L Potassium (3.5-5.1) mmol/L Chloride (98-107) mmol/L Carbon Dioxide (22-30) mmol/L Anion Gap mmol/L BUN (9-20) mg/dL Creatinine (0.66-1.25) mg/dL Est GFR (CKD-EPI)AfAm (>60 ml/min/1.73 sqM) Est GFR (CKD-EPI)NonAf (>60 ml/min/1.73 sqM) Glucose (74-99) mg/dL Calcium (8.4-10.2) mg/dL Total Bilirubin (0.2-1.3) mg/dL AST (17-59) U/L ALT (21-72) U/L Alkaline Phosphatase (38-126) U/L Total Protein (6.3-8.2) g/dL Albumin (3.5-5.0) g/dL Amylase (30-110) U/L Lipase (23-300) U/L Urine Color Yellow Urine Appearance Clear (Clear) Urine pH 6.0 (5.0-8.0) Ur Specific [place] 1.022 (1.001-1.035) Urine Protein 1+ H (Negative) Urine Glucose (UA) Negative (Negative) Urine Ketones Negative (Negative) Urine Blood Trace H (Negative) Urine Nitrite Negative (Negative) Urine Bilirubin Negative (Negative) Urine Urobilinogen 3.0 (<2.0) mg/dL Ur Leukocyte Esterase Small H (Negative) Urine RBC 21 H (0-5) /hpf Urine WBC 7 H (0-5) /hpf Ur Squamous Epith Cells 1 (0-4) /hpf Hyaline Casts 2 (0-2) /lpf Urine Mucus Many H (None) /hpf - Radiology Data Radiology results: report reviewed (Computed tomography scan abdomen and pelvis does show some enteritis. In addition there is right upper uterine calculi 5 x 11 mm.) Disposition Clinical Impression: Ureterolithiasis, Enteritis Disposition: HOME SELF-CARE Condition: Stable Instructions: Acute Nausea and Vomiting (ED), Acute Diarrhea (ED), Kidney Stones (ED) Additional Instructions: Please follow-up with primary care physician in the beginning of the week. Please also follow-up with urology of the week. Return for fevers, uncontrolled vomiting, worsening symptoms or any other concerns. Is patient prescribed a controlled substance at d/c from ED?: No Referrals: Rose Vaughn MD [Primary Care Provider] - 1-2 days Time of Disposition: 16:12
[2017-07-28 14:57] LABS: Basophils % (A) 0 %; Eosinophils # (A) 0.1 k/uL (0-0.7); Eosinophils % (A) 1 %; HCT 41.7 % (39.0-53.0); HGB 14.3 gm/dL (13.0-17.5); Lymphocytes # (A) 2.1 k/uL (1.0-4.8); Lymphocytes % (A) 25 %; MCH 29.8 pg (25.0-35.0); MCHC 34.3 g/dL (31.0-37.0); Mean Platelet Volume 6.3; Monocytes # (A) 0.6 k/uL (0-1.0); Monocytes % (A) 8 %; Neutrophils # (A) 5.2 k/uL (1.3-7.7); Neutrophils % (A) 63 %; Platelet Count 311 k/uL (150-450); RBC 4.79 m/uL (4.30-5.90); RDW 13.1 % (11.5-15.5); WBC 8.3 k/uL (3.8-10.6)
[2017-07-28 15:02] LABS: Appearance,Urine Clear (Clear); Bilirubin,Urine Negative (Negative); Blood,Urine Trace (Negative); Color,Urine Yellow; Glucose,Urine (UA) Negative (Negative); Hyaline Casts,Urine 2 /lpf (0-2); Ketones,Urine Negative (Negative); Leukocyte Esterase,Urine Small (Negative); Mucus,Urine Many /hpf; Nitrite,Urine Negative (Negative); Protein,Urine 1+ (Negative); RBC,Urine 21 /hpf (0-5); Specific Gravity,Urine 1.022 (1.001-1.035); Squamous Epithelial Cell,Urine 1 /hpf (0-4); WBC,Urine 7 /hpf (0-5)
[2017-07-28 15:04] LABS: INR 1.1 (<1.2); Partial Thromboplastin Time 24.9 sec (22.0-30.0); Prothrombin Time 10.4 sec (9.0-12.0)
[2017-07-28 15:05] LABS: ALT 135 U/L (21-72); AST 53 U/L (17-59); Albumin 4.1 g/dL (3.5-5.0); Alkaline Phosphatase 39 U/L (38-126); Amylase 46 U/L (30-110); Anion Gap 11 mmol/L; Blood Urea Nitrogen 9 mg/dL (9-20); Calcium 9.2 mg/dL (8.4-10.2); Carbon Dioxide 24 mmol/L (22-30); Chloride 108 mmol/L (98-107); Glucose 90 mg/dL (74-99); Lipase 167 U/L (23-300); Potassium 3.8 mmol/L (3.5-5.1); Sodium 143 mmol/L (137-145); Total Bilirubin 0.4 mg/dL (0.2-1.3); Total Protein 6.5 g/dL (6.3-8.2)
[2017-07-28] MEDS ORDERED: MORPHINE SULFATE 2 MG/ML SYRINGE IVP STA (15:30)
--- NOTE | 2017-07-28 15:35 | CT ---
EXAMINATION TYPE: CT abdomen pelvis wo con DATE OF EXAM: 07/28/2017 COMPARISON: Prior CT abdomen pelvis 05/31/2017 HISTORY: Left side flank pain and vomiting. CT DLP: 837 mGycm Automated exposure control for dose reduction was used. TECHNIQUE: Helical acquisition of images from the lung bases through the pelvis. FINDINGS: Lack of intravenous contrast could compromise sensitivity of the exam. LUNG BASES: No significant abnormality is appreciated. AORTA: No significant abnormality is appreciated. LIVER/GB: No significant abnormality is appreciated. PANCREAS: No significant abnormality is seen. SPLEEN: No significant abnormality is seen. ADRENALS: No significant abnormality is seen. KIDNEYS: Bilateral punctate calcifications are again noted within the kidneys without obstruction, th e proximal calcification within the right ureter has migrated somewhat more distally measures approxi mately 5 x 11 mm within the proximal ureter. The proximal ureter is somewhat dilated. REPRODUCTIVE ORGANS: No significant abnormality is seen. URINARY BLADDER: Stable, wall thickening is noted, correlate to exclude cystitis. BOWEL: Fluid-filled loops of small bowel are present, there are areas of small bowel wall thickening . Borderline Upper limit of normal size of the appendix however there is no evident inflammatory change in the vis ualized portions. FREE AIR: No Free Air is visible. ASCITES: None visible. PELVIC ADENOPATHY: None visualized. RETROPERITONEAL ADENOPATHY: No Retroperitoneal Adenopathy visible. OSSEOUS STRUCTURES: No significant abnormality is seen. IMPRESSION: PROXIMAL RIGHT URETERAL CALCULUS PERSISTS WITHOUT HYDRONEPHROSIS. THERE IS BILATERAL NEPHROLITHIASIS. CORRELATE FOR ENTERITIS. NONCONTRAST EXAM.
--- NOTE | 2017-07-28 16:13 | ED ---
Medical Decision Making - Lab Data Result diagrams: 07/28/17 14:40 07/28/17 14:40 Lab Results 07/28/17 07/28/17 07/28/17 Range/Units 14:40 14:40 14:40 WBC 8.3 (3.8-10.6) k/uL RBC 4.79 (4.30-5.90) m/uL Hgb 14.3 (13.0-17.5) gm/dL Hct 41.7 (39.0-53.0) % MCV 87.0 (80.0-100.0) fL MCH 29.8 (25.0-35.0) pg MCHC 34.3 (31.0-37.0) g/dL RDW 13.1 (11.5-15.5) % Plt Count 311 (150-450) k/uL Neutrophils % 63 % Lymphocytes % 25 % Monocytes % 8 % Eosinophils % 1 % Basophils % 0 % Neutrophils # 5.2 (1.3-7.7) k/uL Lymphocytes # 2.1 (1.0-4.8) k/uL Monocytes # 0.6 (0-1.0) k/uL Eosinophils # 0.1 (0-0.7) k/uL Basophils # 0.0 (0-0.2) k/uL PT 10.4 (9.0-12.0) sec INR 1.1 (<1.2) APTT 24.9 (22.0-30.0) sec Sodium 143 (137-145) mmol/L Potassium 3.8 (3.5-5.1) mmol/L Chloride 108 H (98-107) mmol/L Carbon Dioxide 24 (22-30) mmol/L Anion Gap 11 mmol/L BUN 9 (9-20) mg/dL Creatinine 1.08 (0.66-1.25) mg/dL Est GFR (CKD-EPI)AfAm >90 (>60 ml/min/1.73 sqM) Est GFR (CKD-EPI)NonAf >90 (>60 ml/min/1.73 sqM) Glucose 90 (74-99) mg/dL Calcium 9.2 (8.4-10.2) mg/dL Total Bilirubin 0.4 (0.2-1.3) mg/dL AST 53 (17-59) U/L ALT 135 H (21-72) U/L Alkaline Phosphatase 39 (38-126) U/L Total Protein 6.5 (6.3-8.2) g/dL Albumin 4.1 (3.5-5.0) g/dL Amylase 46 (30-110) U/L Lipase 167 (23-300) U/L Urine Color Urine Appearance (Clear) Urine pH (5.0-8.0) Ur Specific [place] (1.001-1.035) Urine Protein (Negative) Urine Glucose (UA) (Negative) Urine Ketones (Negative) Urine Blood (Negative) Urine Nitrite (Negative) Urine Bilirubin (Negative) Urine Urobilinogen (<2.0) mg/dL Ur Leukocyte Esterase (Negative) Urine RBC (0-5) /hpf Urine WBC (0-5) /hpf Ur Squamous Epith Cells (0-4) /hpf Hyaline Casts (0-2) /lpf Urine Mucus (None) /hpf 07/28/17 Range/Units 14:40 WBC (3.8-10.6) k/uL RBC (4.30-5.90) m/uL Hgb (13.0-17.5) gm/dL Hct (39.0-53.0) % MCV (80.0-100.0) fL MCH (25.0-35.0) pg MCHC (31.0-37.0) g/dL RDW (11.5-15.5) % Plt Count (150-450) k/uL Neutrophils % % Lymphocytes % % Monocytes % % Eosinophils % % Basophils % % Neutrophils # (1.3-7.7) k/uL Lymphocytes # (1.0-4.8) k/uL Monocytes # (0-1.0) k/uL Eosinophils # (0-0.7) k/uL Basophils # (0-0.2) k/uL PT (9.0-12.0) sec INR (<1.2) APTT (22.0-30.0) sec Sodium (137-145) mmol/L Potassium (3.5-5.1) mmol/L Chloride (98-107) mmol/L Carbon Dioxide (22-30) mmol/L Anion Gap mmol/L BUN (9-20) mg/dL Creatinine (0.66-1.25) mg/dL Est GFR (CKD-EPI)AfAm (>60 ml/min/1.73 sqM) Est GFR (CKD-EPI)NonAf (>60 ml/min/1.73 sqM) Glucose (74-99) mg/dL Calcium (8.4-10.2) mg/dL Total Bilirubin (0.2-1.3) mg/dL AST (17-59) U/L ALT (21-72) U/L Alkaline Phosphatase (38-126) U/L Total Protein (6.3-8.2) g/dL Albumin (3.5-5.0) g/dL Amylase (30-110) U/L Lipase (23-300) U/L Urine Color Yellow Urine Appearance Clear (Clear) Urine pH 6.0 (5.0-8.0) Ur Specific [place] 1.022 (1.001-1.035) Urine Protein 1+ H (Negative) Urine Glucose (UA) Negative (Negative) Urine Ketones Negative (Negative) Urine Blood Trace H (Negative) Urine Nitrite Negative (Negative) Urine Bilirubin Negative (Negative) Urine Urobilinogen 3.0 (<2.0) mg/dL Ur Leukocyte Esterase Small H (Negative) Urine RBC 21 H (0-5) /hpf Urine WBC 7 H (0-5) /hpf Ur Squamous Epith Cells 1 (0-4) /hpf Hyaline Casts 2 (0-2) /lpf Urine Mucus Many H (None) /hpf Disposition Clinical Impression: Ureterolithiasis, Enteritis Disposition: HOME SELF-CARE Condition: Stable Instructions: Kidney Stones (ED), Acute Nausea and Vomiting (ED), Acute Diarrhea (ED) Additional Instructions: Please follow-up with primary care physician in the beginning of the week. Please also follow-up with urology of the week. Return for fevers, uncontrolled vomiting, worsening symptoms or any other concerns. Is patient prescribed a controlled substance at d/c from ED?: No Referrals: Rose Vaughn MD [Primary Care Provider] - 1-2 days Jose Mcclure MD [STAFF PHYSICIAN] - 1-2 days
[2017-07-28 16:58] VITALS: BP 138/82; PULSE 100; TEMP 98
== END 2017-07-28 16:40 | disposition home or self-care (01) ==
LOC: EC 12:54
DX: K52.9 Noninfective gastroenteritis and colitis, unspecified (principal); N20.1 Calculus of ureter; F32.9 Major depressive disorder, single episode, unspecified; F41.9 Anxiety disorder, unspecified; F17.200 Nicotine dependence, unspecified, uncomplicated; Z79.899 Other long term (current) drug therapy; Z88.6 Allergy status to analgesic agent; Z88.8 Allergy status to other drugs, medicaments and biological substances; Z98.890 Other specified postprocedural states; Z53.8 Procedure and treatment not carried out for other reasons
CPT/HCPCS: 99284; 96374; 96375; 96361; 36415; 80053; 82150; 83690; 85025; 85610; 85730; 81001; 87040; 87086; 74176; J2765; J2270

== ENCOUNTER 2017-08-26 06:29 | Inpatient (IN) | payer MEDICARE, OTHER ==
[2017-08-26 06:56] LABS: Basophils % (A) 0 %; Eosinophils # (A) 0.3 k/uL (0-0.7); Eosinophils % (A) 2 %; HCT 41.3 % (39.0-53.0); HGB 13.8 gm/dL (13.0-17.5); Lymphocytes # (A) 2.5 k/uL (1.0-4.8); Lymphocytes % (A) 23 %; MCH 30.2 pg (25.0-35.0); MCHC 33.4 g/dL (31.0-37.0); MCV 90.3 fL (80.0-100.0); Mean Platelet Volume 6.5; Monocytes # (A) 0.6 k/uL (0-1.0); Monocytes % (A) 6 %; Neutrophils # (A) 7.2 k/uL (1.3-7.7); Neutrophils % (A) 67 %; Platelet Count 341 k/uL (150-450); RBC 4.58 m/uL (4.30-5.90); RDW 13.5 % (11.5-15.5); WBC 10.8 k/uL (3.8-10.6)
[2017-08-26 07:02] LABS: ALT 341 U/L (21-72); AST 138 U/L (17-59); Albumin 3.6 g/dL (3.5-5.0); Alkaline Phosphatase 50 U/L (38-126); Anion Gap 7 mmol/L; Blood Urea Nitrogen 10 mg/dL (9-20); Calcium 8.7 mg/dL (8.4-10.2); Carbon Dioxide 23 mmol/L (22-30); Chloride 112 mmol/L (98-107); Glucose 90 mg/dL (74-99); Potassium 4.1 mmol/L (3.5-5.1); Sodium 142 mmol/L (137-145); Total Bilirubin 0.6 mg/dL (0.2-1.3); Total Protein 5.9 g/dL (6.3-8.2)
--- NOTE | 2017-08-26 07:41 | ED ---
General Adult HPI - General Chief complaint: Abdominal Pain Stated complaint: Flank pain Time Seen by Provider: 08/26/17 07:11 Source: patient, EMS, RN notes reviewed Mode of arrival: EMS Limitations: no limitations - History of Present Illness Initial comments: Patient is a pleasant 26-year-old male presenting to the emergency Department with complaints of abdominal discomfort. Onset of symptoms was around 1:30 that morning. Symptoms are similar to his previous kidney stone pain. Discomfort is entire right abdomen. Patient has been previously seen for kidney stones. Patient has not yet followed up with urology however does have an appointment this . Patient states that previous time he went to his appointment they were closed. Patient has some nausea that has now resolved with medication. No fevers. No vomiting. Patient has had some loose stools. - Related Data Home Medications Medication Instructions Recorded Confirmed Vortioxetine Hydrobromide 10 mg PO DAILY 03/31/17 08/26/17 [Trintellix] hydrOXYzine HCL [Atarax] 10 mg PO TID 07/28/17 08/26/17 oxyCODONE HCL/ACETAMINOPHEN 1 tab PO TID PRN 07/28/17 08/26/17 [Percocet 10-325 mg] Lisinopril [Zestril] 10 mg PO DAILY 08/26/17 08/26/17 Allergies Allergy/AdvReac Type Severity Reaction Status Date / Time baclofen Allergy "BLACKS Verified 07/28/17 14:04 OUT" ibuprofen [From Motrin] Allergy GABI'S Verified 07/28/17 14:04 FLARE UPS Review of Systems ROS Statement: Those systems with pertinent positive or pertinent negative responses have been documented in the HPI. ROS Other: All systems not noted in ROS Statement are negative. Constitutional: Denies: fever Eyes: Denies: eye pain ENT: Denies: ear pain Respiratory: Denies: cough Cardiovascular: Denies: chest pain Endocrine: Denies: fatigue Gastrointestinal: Reports: abdominal pain Genitourinary: Denies: dysuria Musculoskeletal: Reports: back pain Skin: Denies: rash Neurological: Denies: weakness Past Medical History Past Medical History: Hypertension, Pneumonia Additional Past Medical History / Comment(s): kidney stones, chonic back and knee pain, hernia, Crohns dx. at age 16. Patient states he takes Zestril prn if his BP is high. History of Any Multi-Drug Resistant Organisms: None Reported Past Surgical History: Hernia Repair, Tonsillectomy Additional Past Surgical History / Comment(s): kidney stone removal, repair of lacerations from chain saw, L forearm and L toe. Additional Past Anesthesia/Blood Transfusion Reaction / Comment(s): Severe anxiety when waking up from anesthesia. Past Psychological History: Anxiety, Depression Smoking Status: Current every day smoker Past Alcohol Use History: None Reported Past Drug Use History: Marijuana - Past Family History Mother Additional Family Medical History / Comment(s): Brain aneurysm General Exam Limitations: no limitations General appearance: alert, in no apparent distress Head exam: Present: atraumatic Eye exam: Present: normal appearance, PERRL ENT exam: Present: normal oropharynx Neck exam: Present: normal inspection Respiratory exam: Present: normal lung sounds bilaterally Cardiovascular Exam: Present: regular rate, normal rhythm Expanded Peripheral pulses: 2+: Dorsalis Pedis (R), Dorsalis Pedis (L) GI/Abdominal exam: Present: soft, tenderness (Moderate tenderness entire right side), guarding, normal bowel sounds. Absent: rigid, pulsatile mass Extremities exam: Present: normal inspection Back exam: Present: CVA tenderness (R) Neurological exam: Present: alert Psychiatric exam: Present: normal affect, normal mood Skin exam: Present: normal color Course Vital Signs 08/26/17 06:31 Temperature 97.9 F Pulse Rate 70 Respiratory 18 Rate Blood Pressure 137/79 O2 Sat by Pulse 98 Oximetry Medical Decision Making - Medical Decision Making Report from [facility] has concerns for calculi right renal collecting system. There is also 9 mm appendix without inflammation. Patient was updated on plan and results. Case was discussed with Dr. Gomez, who will admit for surgical call. - Lab Data Result diagrams: 08/26/17 06:36 08/26/17 06:36 Lab Results 08/26/17 08/26/17 Range/Units 06:36 06:36 WBC 10.8 H (3.8-10.6) k/uL RBC 4.58 (4.30-5.90) m/uL Hgb 13.8 (13.0-17.5) gm/dL Hct 41.3 (39.0-53.0) % MCV 90.3 (80.0-100.0) fL MCH 30.2 (25.0-35.0) pg MCHC 33.4 (31.0-37.0) g/dL RDW 13.5 (11.5-15.5) % Plt Count 341 (150-450) k/uL Neutrophils % 67 % Lymphocytes % 23 % Monocytes % 6 % Eosinophils % 2 % Basophils % 0 % Neutrophils # 7.2 (1.3-7.7) k/uL Lymphocytes # 2.5 (1.0-4.8) k/uL Monocytes # 0.6 (0-1.0) k/uL Eosinophils # 0.3 (0-0.7) k/uL Basophils # 0.0 (0-0.2) k/uL Sodium 142 (137-145) mmol/L Potassium 4.1 (3.5-5.1) mmol/L Chloride 112 H (98-107) mmol/L Carbon Dioxide 23 (22-30) mmol/L Anion Gap 7 mmol/L BUN 10 (9-20) mg/dL Creatinine 0.93 (0.66-1.25) mg/dL Est GFR (CKD-EPI)AfAm >90 (>60 ml/min/1.73 sqM) Est GFR (CKD-EPI)NonAf >90 (>60 ml/min/1.73 sqM) Glucose 90 (74-99) mg/dL Calcium 8.7 (8.4-10.2) mg/dL Total Bilirubin 0.6 (0.2-1.3) mg/dL AST 138 H (17-59) U/L ALT 341 H (21-72) U/L Alkaline Phosphatase 50 (38-126) U/L Total Protein 5.9 L (6.3-8.2) g/dL Albumin 3.6 (3.5-5.0) g/dL Disposition Clinical Impression: Abdominal pain Disposition: ADMITTED IP TO THIS HOSP Is patient prescribed a controlled substance at d/c from ED?: No Referrals: Rose Vaughn MD [Primary Care Provider] - 1-2 days Decision Time: 07:50
[2017-08-26] MEDS ORDERED: ONDANSETRON 4 MG/2 ML VIAL IVP PRN (07:50)
[2017-08-26] MEDS ORDERED: NALOXONE 0.4 MG/ML 1 ML VIAL IV PRN (07:50)
[2017-08-26] MEDS: MORPHINE SULFATE 4 MG/ML SYRINGE IV PRN ×3 (08:12→22:27)
[2017-08-26] MEDS: SODIUM CHLORIDE 0.9% 1,000 ML IV SCH ×3 (08:13→17:26)
[2017-08-26 09:33] VITALS: BMI 22.8
--- NOTE | 2017-08-26 10:01 | P.GSHP ---
History of Present Illness H&P Date: 08/26/17 CHIEF COMPLAINT: Right lower quadrant abdominal pain and right flank pain. HISTORY OF PRESENT ILLNESS: The patient is a 26-year-old male transferred from outside facility secondary to right flank pain including right lower quadrant abdominal pain. Per discussion with the ER staff, patient had findings of appendicitis. Separately patient has known history of Crohn's disease. His previous operations in the abdomen includes umbilical hernia. He reports a personal history of kidney stones. Patient was transferred from outside facility for appendectomy. PAST MEDICAL HISTORY: See list. PAST SURGICAL HISTORY: See list. CURRENT MEDICATIONS: See list. ALLERGIES: See list. SOCIAL HISTORY: See list. FAMILY HISTORY: Crohns disease REVIEW OF ORGAN SYSTEMS: CONSTITUTIONAL: Denies recent weight loss. HEENT: Denies any trouble with vision, hearing or nosebleeds. No difficulty swallowing. LYMPHATIC: The patient denies any lumps and bumps around the neck. ENDOCRINE: Denies any thyroid disorders. Denies any blood sugar glucose intolerance. RESPIRATORY: Denies shortness of breath including chronic cough. Past history of pneumonia. CARDIOVASCULAR: Denies history of chest pain with exertion. History of hypertension. GASTROINTESTINAL: Denies regurgitation of bile at night. Personal history of Crohn's disease. GENITOURINARY: Previous history of kidney stones.` MUSCULOSKELETAL: Has joint arthritis. NEUROLOGIC: Denies any numbness or tingling along the distal extremities. No seizure disorders or headaches. PSYCHIATRIC: Has depression. No suicidal ideation. Has anxiety. HEMATOLOGIC: Denies any abnormal bleeding or bruising. PHYSICAL EXAMINATION: GENERAL: Well developed and in no acute distress. HEENT: No sclera icterus. Extraocular movements grossly intact. Moist buccal mucosa. Head is atraumatic, normocephalic. Hears conversational speech. No nasal drainage. NECK: Supple without lymphadenopathy. No JV distention. CHEST: Non-labored respirations and equal bilateral excursions. CARDIOVASCULAR: Regular rate and rhythm. Palpable 2+ radial pulses. ABDOMEN: Soft, tender at the right lower quadrant. Tenderness along the right flank. MUSCULOSKELETAL: No clubbing, cyanosis or edema. NEUROLOGIC: No focal or lateralizing signs. Cranial nerves II-12 grossly intact. PSYCH: Appropriate affect. Alert and oriented to person, place and time. SKIN: Well perfused. Good skin turgor. LABS: Outside labs reviewed with WBC elevated over 13,000. STUDIES: CT of the abdomen and pelvis findings. He report consistent with kidney stones and right hydronephrosis. Appendicitis cannot be excluded. MISCELLANEOUS: Hospital records from [facility] reviewed. ASSESSMENT: 1. Right lower quadrant pain with possible appendicitis 2. Right flank pain 3. Leukocytosis. PLAN: 1. I have discussed benefits and risks of laparoscopic appendectomy. 2. Bilateral SCDs. 3. Antibiotics. 4. DVT prophylaxis with heparin. 5. GI prophylaxis. 6. Urology consultation for history of kidney stones Thank you very much for allowing me to participate in the care of your patient. Past Medical History Past Medical History: Hypertension, Pneumonia Additional Past Medical History / Comment(s): kidney stones, chonic back and knee pain, hernia, Crohns dx. at age 16. Patient states he takes Zestril prn if his BP is high. History of Any Multi-Drug Resistant Organisms: None Reported Past Surgical History: Hernia Repair, Tonsillectomy Additional Past Surgical History / Comment(s): kidney stone removal, repair of lacerations from chain saw, L forearm and L toe. Additional Past Anesthesia/Blood Transfusion Reaction / Comment(s): Severe anxiety when waking up from anesthesia. Past Psychological History: Anxiety, Depression Smoking Status: Current every day smoker Past Alcohol Use History: None Reported Additional Past Alcohol Use History / Comment(s): Smokes 5 cig's. Past Drug Use History: Marijuana - Past Family History Mother Additional Family Medical History / Comment(s): Brain aneurysm Medications and Allergies Home Medications Medication Instructions Recorded Confirmed Type Vortioxetine Hydrobromide 10 mg PO DAILY 03/31/17 08/26/17 History [Trintellix] hydrOXYzine HCL [Atarax] 10 mg PO TID 07/28/17 08/26/17 History oxyCODONE HCL/ACETAMINOPHEN 1 tab PO TID PRN 07/28/17 08/26/17 History [Percocet 10-325 mg] Lisinopril [Zestril] 10 mg PO DAILY 08/26/17 08/26/17 History Allergies Allergy/AdvReac Type Severity Reaction Status Date / Time baclofen Allergy "BLACKS Verified 08/26/17 11:20 OUT" ibuprofen [From Motrin] Allergy GABI'S Verified 08/26/17 11:20 FLARE UPS Surgical - Exam Vital Signs Temp Pulse Resp BP Pulse Ox 97.9 F 70 18 137/79 98 08/26/17 06:31 08/26/17 06:31 08/26/17 06:31 08/26/17 06:31 08/26/17 06:31 Results - Labs 08/26/17 06:36 08/26/17 06:36 Abnormal Lab Results - Last 24 Hours (Table) 08/26/17 08/26/17 Range/Units 06:36 06:36 WBC 10.8 H (3.8-10.6) k/uL Chloride 112 H (98-107) mmol/L AST 138 H (17-59) U/L ALT 341 H (21-72) U/L Total Protein 5.9 L (6.3-8.2) g/dL Diabetes panel 08/26/17 Range/Units 06:36 Sodium 142 (137-145) mmol/L Potassium 4.1 (3.5-5.1) mmol/L Chloride 112 H (98-107) mmol/L Carbon Dioxide 23 (22-30) mmol/L BUN 10 (9-20) mg/dL Creatinine 0.93 (0.66-1.25) mg/dL Glucose 90 (74-99) mg/dL Calcium 8.7 (8.4-10.2) mg/dL AST 138 H (17-59) U/L ALT 341 H (21-72) U/L Alkaline Phosphatase 50 (38-126) U/L Total Protein 5.9 L (6.3-8.2) g/dL Albumin 3.6 (3.5-5.0) g/dL Calcium panel 08/26/17 Range/Units 06:36 Calcium 8.7 (8.4-10.2) mg/dL Albumin 3.6 (3.5-5.0) g/dL Pituitary panel 08/26/17 Range/Units 06:36 Sodium 142 (137-145) mmol/L Potassium 4.1 (3.5-5.1) mmol/L Chloride 112 H (98-107) mmol/L Carbon Dioxide 23 (22-30) mmol/L BUN 10 (9-20) mg/dL Creatinine 0.93 (0.66-1.25) mg/dL Glucose 90 (74-99) mg/dL Calcium 8.7 (8.4-10.2) mg/dL Adrenal panel 08/26/17 Range/Units 06:36 Sodium 142 (137-145) mmol/L Potassium 4.1 (3.5-5.1) mmol/L Chloride 112 H (98-107) mmol/L Carbon Dioxide 23 (22-30) mmol/L BUN 10 (9-20) mg/dL Creatinine 0.93 (0.66-1.25) mg/dL Glucose 90 (74-99) mg/dL Calcium 8.7 (8.4-10.2) mg/dL Total Bilirubin 0.6 (0.2-1.3) mg/dL AST 138 H (17-59) U/L ALT 341 H (21-72) U/L Alkaline Phosphatase 50 (38-126) U/L Total Protein 5.9 L (6.3-8.2) g/dL Albumin 3.6 (3.5-5.0) g/dL - Imaging CT scan - abdomen: report reviewed CT scan - pelvis: report reviewed (Possible appendicitis with kidney stone and hydronephrosis, right side) Assessment and Plan (1) Right lower quadrant abdominal pain Current Visit: Yes Status: Acute Code(s): R10.31 - RIGHT LOWER QUADRANT PAIN SNOMED Code(s): 182657499 (2) Right flank pain Current Visit: Yes Status: Acute Code(s): R10.9 - UNSPECIFIED ABDOMINAL PAIN SNOMED Code(s): 124157473 (3) Tobacco use Current Visit: Yes Status: Acute Code(s): Z72.0 - TOBACCO USE SNOMED Code( s): 317354343 (4) Essential hypertension Current Visit: Yes Status: Acute Code(s): I10 - ESSENTIAL (PRIMARY) HYPERTENSION SNOMED Code(s): 73597162 (5) Crohn's disease Current Visit: Yes Status: Acute Code(s): K50.90 - CROHN'S DISEASE, UNSPECIFIED, WITHOUT COMPLICATIONS SNOMED Code(s): 85106011 (6) Kidney stone on right side Current Visit: Yes Status: Acute Code(s): N20.0 - CALCULUS OF KIDNEY SNOMED Code(s): 96711485 (7) Hydronephrosis with urinary obstruction due to ureteral calculus Current Visit: Yes Status: Acute Code(s): N13.2 - HYDRONEPHROSIS WITH RENAL AND URETERAL CALCULOUS OBSTRUCTION SNOMED Code(s): 376732752 Plan: Inpatient hospitalization for more than 2 nights advised.
[2017-08-26] MEDS ORDERED: ceFAZolin IN SWFI 2 GM/20 ML SYRINGE IVP ONE (10:15)
--- NOTE | 2017-08-26 10:55 | P.PN ---
Progress Note - Text Progress Note Date: 08/26/17 I was notified by urology, Dr. Araiza. Patient will undergo urgent urological procedure due to kidney stones. Appendectomy cancelled.
[2017-08-26] MEDS ORDERED: IV FLUID CONTINUATION 1,000 ML IV ONE (11:33)
[2017-08-26 12:57] LABS: Appearance,Urine Clear (Clear); Bilirubin,Urine Negative (Negative); Blood,Urine Large (Negative); Color,Urine Yellow; Glucose,Urine (UA) Negative (Negative); Ketones,Urine Negative (Negative); Leukocyte Esterase,Urine Negative (Negative); Mucus,Urine Rare /hpf; Nitrite,Urine Negative (Negative); Protein,Urine Negative (Negative); RBC,Urine >182 /hpf (0-5); Specific Gravity,Urine 1.013 (1.001-1.035); Squamous Epithelial Cell,Urine <1 /hpf (0-4); Urobilinogen,Urine <2.0 mg/dL (<2.0); WBC,Urine 9 /hpf (0-5)
[2017-08-26 13:19] LABS: Amphetamine Screen,Urine Not Detected (NotDetected); Barbiturate Screen,Urine Not Detected (NotDetected); Benzodiazepines Screen,Urine Not Detected (NotDetected); Cocaine Screen,Urine Detected (NotDetected); Methadone Screen, Urine Not Detected (NotDetected); Opiate Screen,Urine Detected (NotDetected); Oxycodone Screen, Urine Detected (NotDetected); Phencyclidine Screen,Urine Not Detected (NotDetected); Tricyclic Antidepressant,Urine Not Detected (NotDetected); Urn Cannabinoid Scrn Not Detected (NotDetected)
--- NOTE | 2017-08-26 14:24 | P.GSCN ---
History of Present Illness Consult date: 08/26/17 Reason for Consult: Right ureteral calculus Requesting physician: Yu Sauceda History of present illness: The patient is a 26-year-old male with a history of urolithiasis. He underwent ureteroscopy with stone basketing and stent placement in [place] in 2009. He states that a metabolic evaluation was performed, but all he recalls is that his calculi are of calcium composition. At 1 AM, he experienced acute onset of sharp right flank pain, non-radiating. This was associated with nausea. He presented to the emergency room at [facility], and a computed tomography scan showed moderate right hydroureteronephrosis due to an 8 mm right proximal ureteral calculus. Bilateral renal calculi were also noted. Unfortunately, the computed tomography scan report is available but the images are not available for my review. He describes his pain is severe. Review of Systems - Constitutional Reports fever, Denies chills - Cardiovascular Denies shortness of breath - Gastrointestinal Reports nausea, Denies vomiting - Genitourinary Reports kidney stones, Denies dysuria, Denies hematuria Past Medical History Past Medical History: Hypertension, Pneumonia Additional Past Medical History / Comment(s): kidney stones, chonic back and knee pain, hernia, Crohns dx. at age 16. Patient states he takes Zestril prn if his BP is high. History of Any Multi-Drug Resistant Organisms: None Reported Past Surgical History: Hernia Repair, Tonsillectomy Additional Past Surgical History / Comment(s): kidney stone removal, repair of lacerations from chain saw, L forearm and L toe. Additional Past Anesthesia/Blood Transfusion Reaction / Comm: Severe anxiety when waking up from anesthesia. Past Psychological History: Anxiety, Depression Smoking Status: Current every day smoker Past Alcohol Use History: None Reported Additional Past Alcohol Use History / Comment(s): Smokes 5 cig's. Past Drug Use History: Marijuana - Past Family History Mother Additional Family Medical History / Comment(s): Brain aneurysm Medications and Allergies Home Medications Medication Instructions Recorded Confirmed Type Vortioxetine Hydrobromide 10 mg PO DAILY 03/31/17 08/26/17 History [Trintellix] hydrOXYzine HCL [Atarax] 10 mg PO TID 07/28/17 08/26/17 History oxyCODONE HCL/ACETAMINOPHEN 1 tab PO TID PRN 07/28/17 08/26/17 History [Percocet 10-325 mg] Lisinopril [Zestril] 10 mg PO DAILY 08/26/17 08/26/17 History Allergies Allergy/AdvReac Type Severity Reaction Status Date / Time baclofen Allergy "BLACKS Verified 08/26/17 11:20 OUT" ibuprofen [From Motrin] Allergy GABI'S Verified 08/26/17 11:20 FLARE UPS Surgical - Exam Vital Signs Temp Pulse Resp BP Pulse Ox 97.9 F 70 18 137/79 98 08/26/17 06:31 08/26/17 06:31 08/26/17 06:31 08/26/17 06:31 08/26/17 06:31 - General well developed, well nourished, moderate distress - Neck no masses, trachea midline - Respiratory normal respiratory effort - Abdomen Abdomen: soft, tender (Moderate right CVA tenderness and right-sided abdominal tenderness, with voluntary guarding ), guarding, no rigid, no rebound, no distended - Genitourinary normal penis with no external lesions, testicles non-tender - Neurologic no disoriented, no combative - Psychiatric oriented to time, oriented to person, oriented to place, speech is normal, memory intact Results - Labs 08/26/17 06:36 08/26/17 06:36 Abnormal Lab Results - Last 24 Hours (Table) 08/26/17 08/26/17 Range/Units 06:36 06:36 WBC 10.8 H (3.8-10.6) k/uL Chloride 112 H (98-107) mmol/L AST 138 H (17-59) U/L ALT 341 H (21-72) U/L Total Protein 5.9 L (6.3-8.2) g/dL Diabetes panel 08/26/17 Range/Units 06:36 Sodium 142 (137-145) mmol/L Potassium 4.1 (3.5-5.1) mmol/L Chloride 112 H (98-107) mmol/L Carbon Dioxide 23 (22-30) mmol/L BUN 10 (9-20) mg/dL Creatinine 0.93 (0.66-1.25) mg/dL Glucose 90 (74-99) mg/dL Calcium 8.7 (8.4-10.2) mg/dL AST 138 H (17-59) U/L ALT 341 H (21-72) U/L Alkaline Phosphatase 50 (38-126) U/L Total Protein 5.9 L (6.3-8.2) g/dL Albumin 3.6 (3.5-5.0) g/dL Calcium panel 08/26/17 Range/Units 06:36 Calcium 8.7 (8.4-10.2) mg/dL Albumin 3.6 (3.5-5.0) g/dL Pituitary panel 08/26/17 Range/Units 06:36 Sodium 142 (137-145) mmol/L Potassium 4.1 (3.5-5.1) mmol/L Chloride 112 H (98-107) mmol/L Carbon Dioxide 23 (22-30) mmol/L BUN 10 (9-20) mg/dL Creatinine 0.93 (0.66-1.25) mg/dL Glucose 90 (74-99) mg/dL Calcium 8.7 (8.4-10.2) mg/dL Adrenal panel 08/26/17 Range/Units 06:36 Sodium 142 (137-145) mmol/L Potassium 4.1 (3.5-5.1) mmol/L Chloride 112 H (98-107) mmol/L Carbon Dioxide 23 (22-30) mmol/L BUN 10 (9-20) mg/dL Creatinine 0.93 (0.66-1.25) mg/dL Glucose 90 (74-99) mg/dL Calcium 8.7 (8.4-10.2) mg/dL Total Bilirubin 0.6 (0.2-1.3) mg/dL AST 138 H (17-59) U/L ALT 341 H (21-72) U/L Alkaline Phosphatase 50 (38-126) U/L Total Protein 5.9 L (6.3-8.2) g/dL Albumin 3.6 (3.5-5.0) g/dL - Imaging CT scan - abdomen: report reviewed Assessment and Plan (1) Ureterolithiasis Current Visit: No Status: Acute Code(s): N20.1 - CALCULUS OF URETER SNOMED Code(s): 96477908 (2) Hydronephrosis with urinary obstruction due to ureteral calculus Current Visit: Yes Status: Acute Code(s): N13.2 - HYDRONEPHROSIS WITH RENAL AND URETERAL CALCULOUS OBSTRUCTION SNOMED Code(s): 800001433 Plan: I had a lengthy discussion with the patient regarding his condition. The preliminary computed tomography scan result suggested that the appendix was enlarged, suggesting the possibility of appendicitis. However, that preliminary reading stated that there was no inflammation around the appendix, and the official radiology report stated that the appendix is unremarkable. In addition to an 8 mm proximal ureteral calculus, the computed tomography scan report states that there are bilateral renal calculi. Unfortunately, the size and quantity of these calculi are not stated and the images are unavailable for my review. Treatment options for the 8 mm proximal ureteral calculus include observation, ESWL, and ureteroscopy with laser lithotripsy. The pros, cons, and risks of each approach were reviewed. The patient has elected to undergo ureteroscopy with laser lithotripsy, and this will be performed today. He understands the risks to include anesthesia, infection, inability to successfully remove the calculus, and ureteral injury. He also understands the need for a stent postoperatively. Time with Patient: Greater than 30
[2017-08-26] MEDS ORDERED: PROPOFOL 10 MG/ML 20 ML VIAL IV ONE (14:28)
[2017-08-26] MEDS ORDERED: fentaNYL (PF) 50 MCG/ML 2 ML AMP ONE (14:28)
[2017-08-26] MEDS ORDERED: MIDAZOLAM 2 MG/2 ML VIAL ONE (14:28)
[2017-08-26] MEDS ORDERED: ONDANSETRON 4 MG/2 ML VIAL ONE (14:28)
[2017-08-26] MEDS ORDERED: LIDOCAINE 1% INJ 10MG/ML (20 ML MDV) ONE (14:28)
[2017-08-26] MEDS ORDERED: ePHEDrine SULFATE/0.9% NACL/PF 50 MG/5 ML SYRINGE IV ONE (14:28)
[2017-08-26] MEDS ORDERED: SODIUM CHLORIDE 0.9% 1,000 ML IV ONE (14:45)
[2017-08-26] MEDS ORDERED: IOHEXOL 350 MG/ML 50 ML in EMPTY BAG 1 BAG IRRIGATION ONE (15:00)
[2017-08-26] MEDS ORDERED: oxyCODONE-APAP 10-325MG 1 EACH TAB PO PRN (15:33)
--- NOTE | 2017-08-26 15:40 | P.OP ---
Date of Procedure: 08/26/17 Preoperative Diagnosis: Right ureteral calculus Postoperative Diagnosis: Same Procedure(s) Performed: Cystoscopy, right retrograde pyelogram, right ureteroscopy with Holmium laser lithotripsy, right ureteral stent insertion Anesthesia: BRYANTA Surgeon: Gianluca Araiza Estimated Blood Loss (ml): 0 IV fluids (ml): 800 Pathology: other (Calculus fragments, sent for chemical analysis) Condition: stable Disposition: PACU Indications for Procedure: The patient is a 26-year-old white male with a history of urolithiasis. He was admitted with right flank pain, and computed tomography scan shows right hydronephrosis due to an 8 mm right proximal ureteral calculus. He comes for ureteroscopic removal of the calculus. Operative Findings: Obstructing 8 mm proximal ureteral calculus Description of Procedure: The patient was taken to the operating room and placed in the dorsolithotomy position, with legs supported in Rigo stirrups. The external genitalia was prepped and draped sterilely. The 30 lens was used to introduce the 19-Serbian Stortz cystoscopic sheath through the urethra and into the bladder under direct vision. The prostatic urethra was unremarkable, as was the bladder. Both ureteral orifices were normal anatomic location and configuration. No tumors or foreign bodies were seen. Using a 10-Serbian cone-tip catheter, a right retrograde pyelogram was performed in the standard fashion. This revealed an obstructing right proximal ureteral calculus. Next, a 0.038 inch Glidewire was passed through the cystoscope. The right ureteral orifice was cannulated, and the Glidewire was advanced up to the calculus. With minimal manipulation, the Glidewire advanced beyond the calculus and up to the right renal pelvis. The cystoscope was removed, and an 11/13-Serbian ureteral access catheter was passed over the wire, up to the mid ureter. The mini flexible ureteroscope was passed through the ureteral access catheter sheath and advanced under direct vision, up to the calculus. The 200 micron Holmium laser probe was passed through the ureteroscope, and lithotripsy was performed. The calculus was not very dense and fragmented readily. Several fragments refluxed into the kidney, and the ureteroscope was advanced to follow them. A bifid renal pelvis was noted. The calculus fragments were fragmented within the renal pelvis until there were approximately the size of the laser tip. Each calyx was then examined, and several small renal calculi were fragmented using the Holmium laser. Again, this was done until the calculus fragments were no larger than the size of the laser tip. The ureteroscope was slowly withdrawn under direct vision. There were no remaining calculus fragments within the ureter. Edema was noted at the site that the calculus was impacted, but there was no evidence of ureteral perforation. After removing the ureteroscope, the Glidewire was passed through the ureteral access catheter sheath and up to the right renal pelvis. The sheath was removed , and the Glidewire was backloaded into the cystoscope, which was passed into the bladder. A 26 cm, 4.8-Serbian double-J ureteral stent was placed over the wire. Proper stent positioning was verified fluoroscopically and endoscopically. The bladder was emptied and the cystoscope removed. Calculus fragments were sent for chemical analysis. The patient tolerated the procedure well and was taken to the recovery room in stable condition.
[2017-08-26] MEDS ORDERED: MEPERIDINE 50 MG/ML SYRINGE IVP ONE (15:45)
[2017-08-26] MEDS: hydrOXYzine HCL 10 MG TAB PO SCH ×2 (16:43→22:26)
--- NOTE | 2017-08-26 18:05 | FL ---
EXAMINATION TYPE: FL urography retrograde DATE OF EXAM: 08/26/2017 COMPARISON: CT abdomen and pelvis July 28, 2017 HISTORY: Right-sided kidney stones TECHNIQUE: Fluoroscopy. FINDINGS: Fluoroscopic guidance was provided during lithotripsy procedure performed by urologist Dr. Araiza. A total of 47 seconds of fluoroscopic time was utilized during the procedure and single spo t fluoroscopic image saved shows partial visualization of right double-J ureter stent. IMPRESSION: As Above.
[2017-08-27] MEDS: MORPHINE SULFATE 4 MG/ML SYRINGE IV PRN ×2 (02:44→08:46)
[2017-08-27] MEDS: hydrOXYzine HCL 10 MG TAB PO SCH (08:45)
[2017-08-27] MEDS: SODIUM CHLORIDE 0.9% 1,000 ML IV SCH (08:46)
[2017-08-27 09:00] VITALS: BP 131/71; PULSE 82; RESP 18; TEMP 98.4
[2017-08-27] MEDS ORDERED: NON-FORMULARY DRUG (Vortioxetine Hydrobromide [Trintellix] 10 MG) PO SCH (09:00)
[2017-08-27] MEDS ORDERED: LISINOPRIL 10 MG TAB PO SCH (09:00)
--- NOTE | 2017-08-27 11:25 | P.PN ---
Progress Note - Text Progress Note Date: 08/27/17 The patient feels much better today. He states that his flank pain has resolved. However, he does report flank pain during micturition, and I explained to him that this is due to his ureteral stent. I also explained that the stent may cause increased frequency and gross hematuria. He is afebrile with stable vital signs, and is urologically stable for discharge. He is instructed to contact my office to schedule an appointment on September 01 for cystoscopy with ureteral stent removal.
--- NOTE | 2017-08-27 11:46 | P.DS ---
Providers Date of admission: 08/26/17 07:50 Expected date of discharge: 08/27/17 Attending physician: Yu Sauceda Consults: 08/26/17 10:02 Consult Physician Routine Consulting Provider: Gianluca Araiza Consult Reason/Comments: Kidney stones Do you want consulting provider notified?: Already Contacted Primary care physician: Roderick Rose - Discharge Diagnosis(es) (1) Right lower quadrant abdominal pain Current Visit: Yes Status: Acute (2) Right flank pain Current Visit: Yes Status: Acute (3) Tobacco use Current Visit: Yes Status: Acute (4) Essential hypertension Current Visit: Yes Status: Acute (5) Crohn's disease Current Visit: Yes Status: Acute (6) Kidney stone on right side Current Visit: Yes Status: Acute (7) Hydronephrosis with urinary obstruction due to ureteral calculus Current Visit: Yes Status: Acute (8) Positive urine drug screen Current Visit: Yes Status: Acute Hospital Course: The patient is a 26-year-old gentleman who was transferred from outside facility secondary to his right lower quadrant pain as well as kidney stones. Workup with the urologist confirmed pain consistent with right kidney stone causing hydroureter. Patient underwent a cystoscopy yesterday with placement of a stent. His abdominal pain including back pain has improved. He has baseline history of chronic pain and is on narcotics at home. Urinalysis consistent with illicit drug use. Patient expressed desires to go home. He was also cleared by urology to go home. Patient will follow-up with the urologist for stent removal as an outpatient. Procedures: Cystoscopy with ureteral stent placement Patient Condition at Discharge: Stable Plan - Discharge Summary Discharge Rx Participant: Yes New Discharge Prescriptions: No Action Vortioxetine Hydrobromide [Trintellix] 10 mg PO DAILY hydrOXYzine HCL [Atarax] 10 mg PO TID oxyCODONE HCL/ACETAMINOPHEN [Percocet 10-325 mg] 1 tab PO TID PRN PRN Reason: Pain Lisinopril [Zestril] 10 mg PO DAILY Discharge Medication List Vortioxetine Hydrobromide [Trintellix] 10 mg PO DAILY 03/31/17 [History] hydrOXYzine HCL [Atarax] 10 mg PO TID 07/28/17 [History] oxyCODONE HCL/ACETAMINOPHEN [Percocet 10-325 mg] 1 tab PO TID PRN 07/28/17 [ History] Lisinopril [Zestril] 10 mg PO DAILY 08/26/17 [History] Follow up Appointment(s)/Referral(s): Rose Vaughn MD [Primary Care Provider] - 1-2 days Gianluca Araiza MD [STAFF PHYSICIAN] - 09/01/17 (Patient is to call Dr. Araiza's office on Monday to schedule a time for the appointment per Dr. Araiza. The office is closed at time of discharge. ) Patient Instructions/Handouts: *Surgery [facility] - Cystoscopy Discharge Instructions Activity/Diet/Wound Care/Special Instructions: Please notify urology office for any concerns. Please take pain medications from home and follow-up with your pain provider. Discharge Disposition: HOME SELF-CARE
== END 2017-08-27 12:35 | disposition home or self-care (01) | DRG 669 ==
LOC: EC 06:29 → INTOOBSV 07:50 → OBSVTOIN 07:50 → 5MS5E 07:50 → UNDOADMIN 07:50 → 5MS5E 07:50 → 5ONC 08:10 → OBSVTOIN 08-27 08:08 → UNDODISIN 08-27 12:35 → 5MS5E 08-28 11:26 → UNDOADMOB 08-28 11:26
PROVIDERS: ADMIT Surgery Plastic and Reconstructive Surgery; ATTEND Surgery Plastic and Reconstructive Surgery
PROC: 0TC78ZZ Extirpation of Matter from Left Ureter, Via Natural or Artificial Opening Endoscopic (ICD-10-PCS; principal; 2017-08-26 11:18)
PROC: 0T768DZ Dilation of Right Ureter with Intraluminal Device, Via Natural or Artificial Opening Endoscopic (ICD-10-PCS; 2017-08-26 11:18)
DX: N13.2 Hydronephrosis with renal and ureteral calculous obstruction (principal); K50.90 Crohn's disease, unspecified, without complications; I10 Essential (primary) hypertension; G43.909 Migraine, unspecified, not intractable, without status migrainosus; G89.29 Other chronic pain; M54.9 Dorsalgia, unspecified; M25.569 Pain in unspecified knee; F41.9 Anxiety disorder, unspecified; F32.9 Major depressive disorder, single episode, unspecified; Z72.0 Tobacco use; Z71.6 Tobacco abuse counseling; Z79.899 Other long term (current) drug therapy; Z87.442 Personal history of urinary calculi; Z87.01 Personal history of pneumonia (recurrent); Z88.8 Allergy status to other drugs, medicaments and biological substances; Z82.49 Family history of ischemic heart disease and other diseases of the circulatory system
CPT/HCPCS: 36415; 74420; 80053; 80306; 81001; 82365; 85025; 96374; 99285

== ENCOUNTER 2017-08-31 15:05 | Emergency (ER) | payer MEDICARE, OTHER ==
[2017-08-31 15:20] VITALS: RESP 18
--- NOTE | 2017-08-31 15:40 | ED ---
General Adult HPI - General Chief complaint: Urogenital Stated complaint: revisit/Kidney stent issue Time Seen by Provider: 08/31/17 15:39 Source: patient Mode of arrival: ambulatory Limitations: no limitations - History of Present Illness Initial comments: Rell is a 26-year-old male with a past medical history frequent kidney stones for which he has required stenting in the past. Patient reports that he was evaluated in our hospital on Monday and had a stent placed and underwent lithotripsy. At that time he was advised that he should follow up today for reevaluation and stent removal. Patient states that his appointment was at 245 today however when he arrived at his urologists office at 245 he was advised that his urologist was not available and he cannot be seen until mid September. At that time patient a decision to come to ER for management of his continuous right-sided flank pain and for removal of his stent. Patient states that he was seen by his primary care physician earlier this week due to dysuria and was advised that he has a urinary tract infection, he was started on Cipro which he reports he has been compliant with. Patient reports he's had continuous hematuria which she has not experienced with his previous stent. - Related Data Home Medications Medication Instructions Recorded Confirmed hydrOXYzine HCL [Atarax] 10 mg PO TID 07/28/17 08/31/17 oxyCODONE HCL/ACETAMINOPHEN 1 tab PO TID PRN 07/28/17 08/31/17 [Percocet 10-325 mg] Lisinopril [Zestril] 10 mg PO DAILY 08/26/17 08/31/17 Ciprofloxacin HCl [Cipro] 250 mg PO BID 08/31/17 08/31/17 Vortioxetine Hydrobromide 20 mg PO DAILY 08/31/17 08/31/17 [Trintellix] Allergies Allergy/AdvReac Type Severity Reaction Status Date / Time baclofen AdvReac "BLACKS Verified 08/31/17 15:46 OUT" ibuprofen [From Motrin] AdvReac GABI'S Verified 08/31/17 15:46 FLARE UPS Review of Systems ROS Statement: Those systems with pertinent positive or pertinent negative responses have been documented in the HPI. ROS Other: All systems not noted in ROS Statement are negative. Constitutional: Denies: fever Respiratory: Denies: dyspnea Cardiovascular: Denies: chest pain, palpitations Endocrine: Denies: fatigue Gastrointestinal: Denies: nausea, vomiting Genitourinary: Reports: dysuria, frequency, hematuria Musculoskeletal: Reports: back pain (right flank) Skin: Denies: rash, lesions Neurological: Denies: weakness Psychiatric: Denies: anxiety, depression Hematological/Lymphatic: Denies: easy bleeding, easy bruising Past Medical History Past Medical History: Hypertension, Pneumonia Additional Past Medical History / Comment(s): kidney stones, chonic back and knee pain, hernia, Crohns dx. at age 16. Patient states he takes Zestril prn if his BP is high. History of Any Multi-Drug Resistant Organisms: None Reported Past Surgical History: Hernia Repair, Tonsillectomy Additional Past Surgical History / Comment(s): kidney stone removal, repair of lacerations from chain saw, L forearm and L toe. stent to ureter Additional Past Anesthesia/Blood Transfusion Reaction / Comment(s): Severe anxiety when waking up from anesthesia. Past Psychological History: Anxiety, Depression Smoking Status: Current every day smoker Past Alcohol Use History: None Reported Past Drug Use History: Marijuana - Past Family History Mother Additional Family Medical History / Comment(s): Brain aneurysm General Exam Limitations: no limitations General appearance: alert, other (appears uncomfortable) Head exam: Present: atraumatic, normocephalic Eye exam: Present: normal appearance, PERRL ENT exam: Present: normal exam Neck exam: Present: normal inspection Respiratory exam: Absent: respiratory distress Cardiovascular Exam: Present: regular rate GI/Abdominal exam: Present: soft. Absent: distended Rectal exam: Present: deferred Extremities exam: Present: normal inspection Back exam: Present: normal inspection, CVA tenderness (R) Neurological exam: Present: alert, oriented X3 Psychiatric exam: Present: agitated, anxious Skin exam: Present: warm, dry Course Vital Signs 08/31/17 08/31/17 08/31/17 15:15 17:17 18:41 Temperature 98.2 F 98.1 F Pulse Rate 87 61 79 Respiratory 18 18 18 Rate Blood Pressure 125/71 146/61 143/97 O2 Sat by Pulse 99 97 100 Oximetry Medical Decision Making - Medical Decision Making The patient was seen and evaluated, history is obtained from the patient and review of medical record. Patient with a right-sided stent in place complaining of worsening right-sided flank pain, was told he was to have a stent taken out today in the office but was unable to be seen. So he came to the ER for management. Labs, urinalysis were ordered Labs with normal kidney function, no significant leukocytosis, no significant anemia Urinalysis with gross hematuria, white blood cells, culture was ordered, patient currently on by mouth Cipro KUB x-ray reveals stent in good position Patient care was discussed with Dr. Mcclure who is very familiar with the patient. He states the patient had an appointment in his office this morning, patient failed to appear, when the patient contacted the office they made him a second appointment in the afternoon, patient called the office after his appointment and stated that he was 20-[address] Mcclure states that he had a surgery to attend to and advised the patient at that time that he cannot be seen. Dr. Mcclure states that at this time the patient is being discharged from their service and advised to follow-up with an outside urologist for further management. Patient with no signs of sepsis, no indication for emergent intervention. I advised the patient that he is being discharged from the urology service and that he needs to follow up with an outside urologist. I advised the patient that he can call outside urologist or he can seek care at an outside emergency room. When the patient was advised that this evening became very agitated and was cursing at me. Reminded the patient that this was not my choice but I was conveying this information so that he can seek appropriate care. Patient apologized. I advised the patient I would go to the computer to replace his discharge orders. Within 2 minutes patient was at the nurse's station asking for his papers being quite reviewed. Patient was advised that I needed chance to put the papers and and have them signed. Patient did return to his room where he was given discharge paperwork. - Lab Data Result diagrams: 08/31/17 16:08 08/31/17 16:08 Lab Results 08/31/17 08/31/17 08/31/17 Range/Units 16:08 16:08 16:08 WBC 9.6 (3.8-10.6) k/uL RBC 4.68 (4.30-5.90) m/uL Hgb 13.6 (13.0-17.5) gm/dL Hct 41.1 (39.0-53.0) % MCV 87.9 (80.0-100.0) fL MCH 29.1 (25.0-35.0) pg MCHC 33.1 (31.0-37.0) g/dL RDW 13.2 (11.5-15.5) % Plt Count 313 (150-450) k/uL Neutrophils % 65 % Lymphocytes % 22 % Monocytes % 7 % Eosinophils % 4 % Basophils % 0 % Neutrophils # 6.2 (1.3-7.7) k/uL Lymphocytes # 2.2 (1.0-4.8) k/uL Monocytes # 0.7 (0-1.0) k/uL Eosinophils # 0.4 (0-0.7) k/uL Basophils # 0.0 (0-0.2) k/uL Sodium 141 (137-145) mmol/L Potassium 3.6 (3.5-5.1) mmol/L Chloride 108 H (98-107) mmol/L Carbon Dioxide 25 (22-30) mmol/L Anion Gap 8 mmol/L BUN 10 (9-20) mg/dL Creatinine 0.90 (0.66-1.25) mg/dL Est GFR (CKD-EPI)AfAm >90 (>60 ml/min/1.73 sqM) Est GFR (CKD-EPI)NonAf >90 (>60 ml/min/1.73 sqM) Glucose 109 H (74-99) mg/dL Calcium 9.5 (8.4-10.2) mg/dL Urine Color Dark Red Urine Appearance Turbid (Clear) Urine pH 6.0 (5.0-8.0) Ur Specific [place] 1.025 (1.001-1.035) Urine Protein 2+ H (Negative) Urine Glucose (UA) Negative (Negative) Urine Ketones Trace H (Negative) Urine Blood Large H (Negative) Urine Nitrite Negative (Negative) Urine Bilirubin Negative (Negative) Urine Urobilinogen <2.0 (<2.0) mg/dL Ur Leukocyte Esterase Large H (Negative) Urine RBC >182 H (0-5) /hpf Urine WBC >182 H (0-5) /hpf Urine Mucus Moderate H (None) /hpf Disposition Clinical Impression: UTI (urinary tract infection), Retained ureteral stent, Hematuria Disposition: HOME SELF-CARE Condition: Fair Instructions: Urinary Tract Infection in Men (ED) Is patient prescribed a controlled substance at d/c from ED?: No Referrals: Rose Vaughn MD [Primary Care Provider] - 1-2 days Time of Disposition: 18:35
[2017-08-31 16:26] LABS: Basophils % (A) 0 %; Eosinophils # (A) 0.4 k/uL (0-0.7); Eosinophils % (A) 4 %; HCT 41.1 % (39.0-53.0); HGB 13.6 gm/dL (13.0-17.5); Lymphocytes # (A) 2.2 k/uL (1.0-4.8); Lymphocytes % (A) 22 %; MCH 29.1 pg (25.0-35.0); MCHC 33.1 g/dL (31.0-37.0); MCV 87.9 fL (80.0-100.0); Mean Platelet Volume 6.4; Monocytes # (A) 0.7 k/uL (0-1.0); Monocytes % (A) 7 %; Neutrophils # (A) 6.2 k/uL (1.3-7.7); Neutrophils % (A) 65 %; Platelet Count 313 k/uL (150-450); RBC 4.68 m/uL (4.30-5.90); RDW 13.2 % (11.5-15.5); WBC 9.6 k/uL (3.8-10.6)
[2017-08-31 16:42] LABS: Anion Gap 8 mmol/L; Blood Urea Nitrogen 10 mg/dL (9-20); Calcium 9.5 mg/dL (8.4-10.2); Carbon Dioxide 25 mmol/L (22-30); Chloride 108 mmol/L (98-107); Glucose 109 mg/dL (74-99); Potassium 3.6 mmol/L (3.5-5.1); Sodium 141 mmol/L (137-145)
[2017-08-31 17:23] LABS: Appearance,Urine Turbid (Clear); Bilirubin,Urine Negative (Negative); Blood,Urine Large (Negative); Color,Urine Dark Red; Glucose,Urine (UA) Negative (Negative); Ketones,Urine Trace (Negative); Leukocyte Esterase,Urine Large (Negative); Mucus,Urine Moderate /hpf; Nitrite,Urine Negative (Negative); Protein,Urine 2+ (Negative); RBC,Urine >182 /hpf (0-5); Urobilinogen,Urine <2.0 mg/dL (<2.0); WBC,Urine >182 /hpf (0-5)
[2017-08-31 17:27] LABS: Specific Gravity,Urine 1.025 (1.001-1.035)
--- NOTE | 2017-08-31 17:41 | XR ---
EXAMINATION TYPE: XR KUB DATE OF EXAM: 08/31/2017 COMPARISON: 06/21/2016 HISTORY: Abdominal pain TECHNIQUE: 06/21/2016 FINDINGS: There is right-sided double-J ureteral stent. There is calcification over the left kidney. There is no sign of intestinal obstruction or pneumoperitoneum. Fecal pattern is normal. Lung bases a re clear. IMPRESSION: Calcification over the left kidney. Calcification over the right kidney is not clearly de monstrated. Nonacute abdomen.
[2017-08-31 18:42] VITALS: BP 143/97; PULSE 79; TEMP 98.1
== END 2017-08-31 18:42 | disposition home or self-care (01) ==
LOC: EC 15:05
DX: T83.192A Other mechanical complication of indwelling ureteral stent, initial encounter (principal); N39.0 Urinary tract infection, site not specified; R10.9 Unspecified abdominal pain; I10 Essential (primary) hypertension; F32.9 Major depressive disorder, single episode, unspecified; F41.9 Anxiety disorder, unspecified; F17.200 Nicotine dependence, unspecified, uncomplicated; Z87.442 Personal history of urinary calculi; Z79.899 Other long term (current) drug therapy; Z88.6 Allergy status to analgesic agent; Z88.8 Allergy status to other drugs, medicaments and biological substances
CPT/HCPCS: 36415; 74018; 80048; 81001; 85025; 87086; 99283

== ENCOUNTER 2017-11-03 13:25 | Emergency (ER) | payer MEDICARE, OTHER ==
[2017-11-03] MEDS ORDERED: buPROPion XL 300 MG TAB.ER.24H PO STA (16:03)
[2017-11-03] MEDS ORDERED: OLANZapine 5 MG TAB PO STA (16:04)
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
[2017-11-03 16:34] LABS: Basophils % (A) 0 %; Eosinophils # (A) 0.1 k/uL (0-0.7); Eosinophils % (A) 2 %; HCT 41.2 % (39.0-53.0); HGB 13.1 gm/dL (13.0-17.5); Lymphocytes # (A) 2.6 k/uL (1.0-4.8); Lymphocytes % (A) 32 %; MCH 29.4 pg (25.0-35.0); MCHC 31.8 g/dL (31.0-37.0); MCV 92.4 fL (80.0-100.0); Mean Platelet Volume 6.2; Monocytes # (A) 0.7 k/uL (0-1.0); Monocytes % (A) 8 %; Neutrophils # (A) 4.6 k/uL (1.3-7.7); Neutrophils % (A) 56 %; Platelet Count 284 k/uL (150-450); RBC 4.46 m/uL (4.30-5.90); RDW 14.1 % (11.5-15.5); WBC 8.2 k/uL (3.8-10.6)
[2017-11-03 16:42] LABS: ALT 152 U/L (21-72); AST 64 U/L (17-59); Albumin 3.8 g/dL (3.5-5.0); Alkaline Phosphatase 64 U/L (38-126); Anion Gap 9 mmol/L; Blood Urea Nitrogen 13 mg/dL (9-20); Carbon Dioxide 26 mmol/L (22-30); Chloride 105 mmol/L (98-107); Glucose 102 mg/dL (74-99); Potassium 4.1 mmol/L (3.5-5.1); Sodium 140 mmol/L (137-145); Total Bilirubin 0.5 mg/dL (0.2-1.3); Total Protein 6.6 g/dL (6.3-8.2)
[2017-11-03 21:46] LABS: Appearance,Urine Clear (Clear); Bilirubin,Urine Negative (Negative); Blood,Urine Negative (Negative); Color,Urine Yellow; Glucose,Urine (UA) Negative (Negative); Ketones,Urine Negative (Negative); Leukocyte Esterase,Urine Negative (Negative); Nitrite,Urine Negative (Negative); Protein,Urine Negative (Negative); Specific Gravity,Urine 1.013 (1.001-1.035); Urobilinogen,Urine <2.0 mg/dL (<2.0)
[2017-11-03 21:57] LABS: Amphetamine Screen,Urine Detected (NotDetected); Barbiturate Screen,Urine Not Detected (NotDetected); Benzodiazepines Screen,Urine Detected (NotDetected); Cocaine Screen,Urine Not Detected (NotDetected); Methadone Screen, Urine Not Detected (NotDetected); Opiate Screen,Urine Detected (NotDetected); Oxycodone Screen, Urine Not Detected (NotDetected); Phencyclidine Screen,Urine Not Detected (NotDetected); Tricyclic Antidepressant,Urine Detected (NotDetected); Urn Cannabinoid Scrn Not Detected (NotDetected)
[2017-11-04] MEDS ORDERED: ACETAMINOPHEN TAB 325 MG TAB PO STA (19:49)
[2017-11-04] MEDS ORDERED: buPROPion XL 300 MG TAB.ER.24H PO STA (19:50)
[2017-11-04] MEDS ORDERED: OLANZapine 5 MG TAB PO STA (19:50)
[2017-11-04 21:55] VITALS: BP 127/87; PULSE 98; RESP 14; TEMP 97.7
== END 2017-11-04 21:55 | disposition other institution (70) ==
LOC: EC 13:25
DX: R45.851 Suicidal ideations (principal); F32.9 Major depressive disorder, single episode, unspecified; F41.9 Anxiety disorder, unspecified; I10 Essential (primary) hypertension; F17.200 Nicotine dependence, unspecified, uncomplicated; Z63.0 Problems in relationship with spouse or partner; Z79.899 Other long term (current) drug therapy; Z88.8 Allergy status to other drugs, medicaments and biological substances; Z88.6 Allergy status to analgesic agent
CPT/HCPCS: 36415; 80053; 80306; 81003; 82075; 85025; 99285

== ENCOUNTER → 2018-11-09 | Outpatient (CLI) | payer MEDICARE, OTHER ==
[2018-11-09 15:44] LABS: Basophils # (A) 0.1 k/uL (0-0.2); Basophils % (A) 2 %; Eosinophils # (A) 0.1 k/uL (0-0.7); Eosinophils % (A) 1 %; HCT 39.9 % (39.0-53.0); HGB 13.5 gm/dL (13.0-17.5); Lymphocytes # (A) 1.5 k/uL (1.0-4.8); Lymphocytes % (A) 21 %; MCH 29.7 pg (25.0-35.0); MCHC 33.8 g/dL (31.0-37.0); MCV 87.8 fL (80.0-100.0); Mean Platelet Volume 6.3; Monocytes # (A) 0.3 k/uL (0-1.0); Monocytes % (A) 4 %; Neutrophils % (A) 70 %; Platelet Count 251 k/uL (150-450); RBC 4.54 m/uL (4.30-5.90); RDW 13.4 % (11.5-15.5); WBC 7.1 k/uL (3.8-10.6)
[2018-11-10 10:23] LABS: Albumin 4.2 g/dL (3.80-4.90); Albumin/Globulin Ratio 1.91 (1.60-3.17); Bilirubin, Conjugated 0.2 mg/dL (0.20-0.40); Bilirubin,Unconjugated 0.3 mg/dL; Globulin 2.2 g/dL (1.6-3.3); Total Bilirubin 0.5 mg/dL (0.3-1.2); Total Protein 6.4 g/dL (6.2-8.2)
[2018-11-12 16:18] LABS: HCV Qualitative Result DETECTED (Not detected); HCV Quant Log 6.64 (<1.08)
== END ==
LOC: LABWHC1 15:11
PROVIDERS: ATTEND Physician Assistant
DX: B18.2 Chronic viral hepatitis C (principal)
CPT/HCPCS: 36415; 80076; 85025; 85610; 87522; 87902

== ENCOUNTER → 2018-11-26 | Outpatient (CLI) | payer MEDICARE, OTHER ==
--- NOTE | 2018-11-26 10:16 | US ---
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 EXAM MEASUREMENTS: Liver Length: 12.8 cm Gallbladder Wall: 0.3 cm CBD: 0.2 cm Right Kidney: 8.9 x 4.6 x 5.3 cm Pancreas: Obscured by bowel gas Liver: wnl Gallbladder: appears contracted, patient states he has not eaten Evidence for sonographic Delgado's sign: No CBD: wnl Right Kidney: No hydronephrosis or masses seen IMPRESSION: No focal hepatic lesion is seen in this patient with known hepatocellular disease. Hepati c parenchyma appears overall homogeneous sonographically at this time. Pancreas is noted to be obscur ed by bowel gas.
== END | disposition home or self-care (01) ==
LOC: RADUSWWP 08:49
PROVIDERS: ATTEND Internal Medicine Gastroenterology
DX: K76.9 Liver disease, unspecified (principal); B18.2 Chronic viral hepatitis C
CPT/HCPCS: 76705

== ENCOUNTER 2019-04-21 17:25 | Emergency (ER) | payer MEDICARE, OTHER ==
[2019-04-21 17:38] VITALS: BP 136/88; PULSE 68; RESP 18; TEMP 97.9
[2019-04-21] MEDS ORDERED: HYDROcodone/APAP 5-325MG 1 EACH TAB PO STA (17:42)
--- NOTE | 2019-04-21 17:56 | ED ---
Upper Extremity HPI - General Chief Complaint: Extremity Injury, Upper Stated Complaint: Arm Injury Time Seen by Provider: 04/21/19 17:33 Source: patient, RN notes reviewed, old records reviewed Mode of arrival: ambulatory Limitations: no limitations - History of Present Illness Initial Comments: Patient is a 20-year-old male who presents emergency department today for evaluation for right wrist and forearm pain after a fall on outstretched hand yesterday. Patient reports swelling today and pain with range of motion. He is right-handed. Patient states that he has sensation distally to the fingertips. He reports that he has not had a previous orthopedic injury to this extremity. - Related Data Home Medications Medication Instructions Recorded Confirmed Lisinopril [Zestril] 10 mg PO DAILY 08/26/17 11/03/17 Vortioxetine Hydrobromide 20 mg PO DAILY 08/31/17 11/03/17 [Trintellix] OLANZapine [ZyPREXA] 15 mg PO BID 11/03/17 11/03/17 buPROPion HCL [Wellbutrin XL] 300 mg PO DAILY 11/03/17 11/03/17 oxyCODONE-APAP 7.5-325MG [Percocet 1 tab PO BID PRN 11/03/17 11/03/17 7.5-325 mg] Previous Rx's Medication Instructions Recorded Acetaminophen Tab [Tylenol Tab] 500 mg PO Q4H #20 tablet 04/21/19 Naproxen 500 mg PO BID #20 tablet 04/21/19 Allergies Allergy/AdvReac Type Severity Reaction Status Date / Time baclofen AdvReac "BLACKS Verified 11/03/17 14:43 OUT" ibuprofen [From Motrin] AdvReac GABI'S Verified 11/03/17 14:43 FLARE UPS Review of Systems ROS Statement: Those systems with pertinent positive or pertinent negative responses have been documented in the HPI. ROS Other: All systems not noted in ROS Statement are negative. Past Medical History Past Medical History: Hypertension, Pneumonia Additional Past Medical History / Comment(s): kidney stones, chonic back and knee pain, hernia, Crohns dx. at age 16. Patient states he takes Zestril prn if his BP is high. History of Any Multi-Drug Resistant Organisms: None Reported Past Surgical History: Hernia Repair, Tonsillectomy Additional Past Surgical History / Comment(s): kidney stone removal, repair of lacerations from chain saw, L forearm and L toe. stent to ureter Additional Past Anesthesia/Blood Transfusion Reaction / Comment(s): Severe anxiety when waking up from anesthesia. Past Psychological History: Anxiety, Depression Smoking Status: Current every day smoker Past Alcohol Use History: None Reported Past Drug Use History: Marijuana - Past Family History Mother Additional Family Medical History / Comment(s): Brain aneurysm General Exam - General Exam Comments Initial Comments: 28-year-old male. Alert and oriented. No distress. Limitations: no limitations General appearance: alert, in no apparent distress Head exam: Present: atraumatic, normocephalic, normal inspection Eye exam: Present: normal appearance, PERRL, EOMI. Absent: scleral icterus, conjunctival injection, periorbital swelling ENT exam: Present: normal exam, mucous membranes moist Neck exam: Present: normal inspection. Absent: tenderness, meningismus, lymphadenopathy Respiratory exam: Present: normal lung sounds bilaterally. Absent: respiratory distress, wheezes, rales, rhonchi, stridor Cardiovascular Exam: Present: regular rate, normal rhythm, normal heart sounds. Absent: systolic murmur, diastolic murmur, rubs, gallop, clicks GI/Abdominal exam: Present: soft, normal bowel sounds. Absent: distended, tenderness, guarding, rebound, rigid Extremities exam: Present: normal inspection, full ROM, normal capillary refill. Absent: tenderness, pedal edema, joint swelling, calf tenderness Right Upper Arm exam: Present: normal inspection, full ROM Elbow exam: Present: normal inspection, full ROM Forearm Wrist exam: Present: normal inspection, full ROM, tenderness over anatomical snuff box Hand Wrist exam: Present: full ROM. Absent: normal inspection Neuro motor exam: Present: wrist extension intact, thumb opposition intact, thumb IP flexion intact, thumb adduction intact, fingers 2-5 abduction intact Vascular: Present: normal capillary refill Back exam: Present: normal inspection Neurological exam: Present: alert, oriented X3, CN II-XII intact Psychiatric exam: Present: normal affect, normal mood Skin exam: Present: warm, dry, intact, normal color. Absent: rash Course Vital Signs 04/21/19 17:32 Temperature 97.9 F Pulse Rate 68 Respiratory 18 Rate Blood Pressure 136/88 O2 Sat by Pulse 98 Oximetry Procedures - Orthopedic Splinting/Casting Injury #1 Side: right Upper Extremity Injury Location: hand Upper Extremity Immobilizer: thumb spica, Reinaldo wrap, synthetic pre-padded splint Medical Decision Making - Medical Decision Making 28-year-old male presents to emergency department today after a fall on outstretched hand. At this time Patient has some swelling, does have some tenderness over the snuffbox. Patient's wrist and forearm x-ray were negative for fracture. Due to the tenderness of the snuffbox Patient was placed in a thumb spica splint. I discussed the Patient has persistent symptoms after week may need to repeat imaging for follow-up possible occult fracture. Patient will be discharged with anti-inflammatory medicine all questions answered. - Radiology Data Radiology results: report reviewed Normal wrist and hand x-ray. Disposition Clinical Impression: Wrist sprain Disposition: HOME SELF-CARE Condition: Good Instructions (If sedation given, give patient instructions): Wrist Injury (ED) Additional Instructions: Patient advised to remain in the splint until following up with work phone next week for repeat imaging. Return to emergency department if any alarming signs or symptoms occur. Prescriptions: Naproxen 500 mg PO BID #20 tablet Acetaminophen Tab [Tylenol Tab] 500 mg PO Q4H #20 tablet Is patient prescribed a controlled substance at d/c from ED?: No Referrals: Itzel Atkins NPC [REFERRING] - 1-2 days Darwin Castaneda MD [STAFF PHYSICIAN] - 1-2 days Time of Disposition: 18:28
--- NOTE | 2019-04-21 18:14 | XR ---
EXAMINATION TYPE: XR forearm RT DATE OF EXAM: 04/21/2019 COMPARISON: NONE HISTORY: Pain TECHNIQUE: 3 views FINDINGS: Elbow joint appears intact. Wrist joint appears intact. I see no fracture nor dislocation. IMPRESSION: Negative right forearm exam.
--- NOTE | 2019-04-21 18:15 | XR ---
EXAMINATION TYPE: XR hand complete RT DATE OF EXAM: 04/21/2019 COMPARISON: NONE HISTORY: Pain after fall TECHNIQUE: 3 views FINDINGS: Metacarpals appear intact. I see no fracture nor dislocation. Joint spaces appear normal. IMPRESSION: Negative right hand exam. No fracture seen.
[2019-04-21] MEDS ORDERED: ACET/COD 300 MG/30 MG STARTER PACK 6 TAB BTL PO STA (18:35)
== END 2019-04-21 18:48 | disposition home or self-care (01) ==
LOC: EC 17:25
DX: S63.501A Unspecified sprain of right wrist, initial encounter (principal); I10 Essential (primary) hypertension; F41.9 Anxiety disorder, unspecified; F32.9 Major depressive disorder, single episode, unspecified; F17.200 Nicotine dependence, unspecified, uncomplicated; Z79.899 Other long term (current) drug therapy; Z88.6 Allergy status to analgesic agent; Z88.8 Allergy status to other drugs, medicaments and biological substances; W19.XXXA Unspecified fall, initial encounter
CPT/HCPCS: 29125; 99284

== ENCOUNTER 2019-05-11 22:52 | Emergency (ER) | payer MEDICARE, OTHER ==
[2019-05-11 22:57] VITALS: BP 132/75; PULSE 92; RESP 16; TEMP 98.1
--- NOTE | 2019-05-11 23:18 | ED ---
Upper Extremity HPI - General Chief Complaint: Extremity Injury, Upper Stated Complaint: Rt Wrist Injury Time Seen by Provider: 05/11/19 23:01 Source: patient Mode of arrival: ambulatory Limitations: no limitations - History of Present Illness Initial Comments: This patient is 28-year-old man who presents to be evaluated for right wrist pain. He states that he had injured his right wrist a 2-3 weeks ago and was seen here. He had x-rays and was told that he may have a hairline fracture. Patient states he has been wearing a Velcro wrist splint. Patient states that he had gone to work and had been doing a lot of lifting and subsequently his right wrist was hurting worse. No impact to the wrist. No weakness or numbness. MD Complaint: Injury to:: right, forearm Onset/Timin -: week(s) Other Extremity Injury: Forearm: Right Other Injuries: none Handedness: right Place: work Improves With: immobilization Worsens With: movement of extremity Associated Symptoms: denies other symptoms - Related Data Home Medications Medication Instructions Recorded Confirmed Lisinopril [Zestril] 10 mg PO DAILY 08/26/17 11/03/17 Vortioxetine Hydrobromide 20 mg PO DAILY 08/31/17 11/03/17 [Trintellix] OLANZapine [ZyPREXA] 15 mg PO BID 11/03/17 11/03/17 buPROPion HCL [Wellbutrin XL] 300 mg PO DAILY 11/03/17 11/03/17 oxyCODONE-APAP 7.5-325MG [Percocet 1 tab PO BID PRN 11/03/17 11/03/17 7.5-325 mg] Previous Rx's Medication Instructions Recorded Acetaminophen Tab [Tylenol Tab] 500 mg PO Q4H #20 tablet 04/21/19 Naproxen 500 mg PO BID #20 tablet 04/21/19 Naproxen [Naprosyn] 500 mg PO Q12H #14 tablet 05/11/19 Allergies Allergy/AdvReac Type Severity Reaction Status Date / Time baclofen AdvReac "BLACKS Verified 05/11/19 22:57 OUT" ibuprofen [From Motrin] AdvReac GABI'S Verified 05/11/19 22:57 FLARE UPS Review of Systems ROS Statement: Those systems with pertinent positive or pertinent negative responses have been documented in the HPI. ROS Other: All systems not noted in ROS Statement are negative. Constitutional: Denies: weakness Neurological: Denies: weakness, numbness Past Medical History Past Medical History: Hypertension, Pneumonia Additional Past Medical History / Comment(s): kidney stones, chonic back and knee pain, hernia, Crohns dx. at age 16. Patient states he takes Zestril prn if his BP is high. History of Any Multi-Drug Resistant Organisms: None Reported Past Surgical History: Hernia Repair, Tonsillectomy Additional Past Surgical History / Comment(s): kidney stone removal, repair of lacerations from chain saw, L forearm and L toe. stent to ureter Additional Past Anesthesia/Blood Transfusion Reaction / Comment(s): Severe anxiety when waking up from anesthesia. Past Psychological History: Anxiety, Depression Smoking Status: Current every day smoker Past Alcohol Use History: None Reported Past Drug Use History: Marijuana - Past Family History Mother Additional Family Medical History / Comment(s): Brain aneurysm General Exam Limitations: no limitations General appearance: alert, in no apparent distress Extremities exam: Present: normal inspection, normal capillary refill Right Elbow exam: Present: normal inspection, full ROM. Absent: tenderness, swelling Forearm Wrist exam: Present: tenderness (Radial aspect of distal forearm). Absent: full ROM (Patient resists active range of motion at wrist.), swelling, abrasion, laceration, ecchymosis, deformity, crepitus, dislocation, erythema, tenderness over anatomical snuff box, pain with axial thumb loading Hand Wrist exam: Present: normal inspection, full ROM. Absent: tenderness, swelling, abrasion Neurological exam: Present: alert. Absent: motor sensory deficit Skin exam: Present: warm, dry, intact, normal color. Absent: rash Course Vital Signs 05/11/19 22:54 Temperature 98.1 F Pulse Rate 92 Respiratory 16 Rate Blood Pressure 132/75 O2 Sat by Pulse 100 Oximetry Disposition Clinical Impression: Wrist sprain Disposition: HOME SELF-CARE Condition: Good Instructions (If sedation given, give patient instructions): Wrist Injury (ED) Prescriptions: Naproxen [Naprosyn] 500 mg PO Q12H #14 tablet Is patient prescribed a controlled substance at d/c from ED?: No Referrals: Itzel Atkins NPC [REFERRING] - 1-2 days
--- NOTE | 2019-05-11 23:25 | XR ---
EXAMINATION TYPE: XR forearm RT DATE OF EXAM: 05/11/2019 COMPARISON: 04/21/2019 HISTORY: Pain TECHNIQUE: 2 views FINDINGS: Radius and ulna appear intact. Wrist joint and elbow joint appear normal. I see no fracture nor dislocation. Carpal bones are intact. IMPRESSION: Negative right forearm exam.
== END 2019-05-11 23:41 | disposition home or self-care (01) ==
LOC: EC 22:52
DX: S63.501A Unspecified sprain of right wrist, initial encounter (principal); I10 Essential (primary) hypertension; F32.9 Major depressive disorder, single episode, unspecified; F41.9 Anxiety disorder, unspecified; F17.200 Nicotine dependence, unspecified, uncomplicated; Z88.6 Allergy status to analgesic agent; Z88.8 Allergy status to other drugs, medicaments and biological substances; Z79.899 Other long term (current) drug therapy; Z87.828 Personal history of other (healed) physical injury and trauma; Z97.8 Presence of other specified devices; X50.0XXA Overexertion from strenuous movement or load, initial encounter; Y92.69 Other specified industrial and construction area as the place of occurrence of the external cause
CPT/HCPCS: 99283

== ENCOUNTER 2019-06-08 17:50 | Emergency (ER) | payer MEDICARE, OTHER ==
[2019-06-08 18:02] VITALS: TEMP 98.1
--- NOTE | 2019-06-08 18:12 | ED ---
General Adult HPI - General Chief complaint: Abdominal Pain Stated complaint: Kidney pain Time Seen by Provider: 06/08/19 18:09 Source: patient Mode of arrival: ambulatory Limitations: no limitations - History of Present Illness Initial comments: Patient presents the ED with his fianc for evaluation. Patient states that he has had "burning" bilateral flank/low back pain since this afternoon. Patient states that he has a history of renal stones. Patient also states that he has a history of renal failure secondary to "antifreeze poisoning". Patient denies known trauma or injury, leg pain/numbness/weakness, incontinence, urinary retention, fever or chills, headache, chest pain, dyspnea, dizziness, abdominal pain, nausea/vomiting/diarrhea, hematuria/dysuria/urinary frequency/urinary symptoms, or any other symptoms or complaints. Patient states that his pain is worse with position changes. - Related Data Home Medications Medication Instructions Recorded Confirmed Lisinopril [Zestril] 10 mg PO DAILY 08/26/17 11/03/17 Vortioxetine Hydrobromide 20 mg PO DAILY 08/31/17 11/03/17 [Trintellix] OLANZapine [ZyPREXA] 15 mg PO BID 11/03/17 11/03/17 buPROPion HCL [Wellbutrin XL] 300 mg PO DAILY 11/03/17 11/03/17 oxyCODONE-APAP 7.5-325MG [Percocet 1 tab PO BID PRN 11/03/17 11/03/17 7.5-325 mg] Previous Rx's Medication Instructions Recorded Acetaminophen Tab [Tylenol Tab] 500 mg PO Q4H #20 tablet 04/21/19 Naproxen 500 mg PO BID #20 tablet 04/21/19 Naproxen [Naprosyn] 500 mg PO Q12H #14 tablet 05/11/19 Allergies Allergy/AdvReac Type Severity Reaction Status Date / Time baclofen AdvReac "BLACKS Verified 06/08/19 18:02 OUT" ibuprofen [From Motrin] AdvReac GABI'S Verified 06/08/19 18:02 FLARE UPS Review of Systems ROS Statement: Those systems with pertinent positive or pertinent negative responses have been documented in the HPI. ROS Other: All systems not noted in ROS Statement are negative. Past Medical History Past Medical History: Hypertension, Pneumonia Additional Past Medical History / Comment(s): kidney stones, chonic back and knee pain, hernia, Crohns dx. at age 16. Patient states he takes Zestril prn if his BP is high. History of Any Multi-Drug Resistant Organisms: None Reported Past Surgical History: Hernia Repair, Tonsillectomy Additional Past Surgical History / Comment(s): kidney stone removal, repair of lacerations from chain saw, L forearm and L toe. stent to ureter Additional Past Anesthesia/Blood Transfusion Reaction / Comment(s): Severe anxiety when waking up from anesthesia. Past Psychological History: Anxiety, Depression Smoking Status: Current every day smoker Past Alcohol Use History: None Reported Past Drug Use History: Marijuana - Past Family History Mother Additional Family Medical History / Comment(s): Brain aneurysm General Exam Limitations: no limitations General appearance: alert, in no apparent distress Head exam: Present: atraumatic, normocephalic Eye exam: Present: normal appearance, EOMI ENT exam: Present: mucous membranes moist Respiratory exam: Present: normal lung sounds bilaterally. Absent: respiratory distress, wheezes, rales, rhonchi Cardiovascular Exam: Present: regular rate, normal rhythm, normal heart sounds, other (Normal radial pulses bilaterally) GI/Abdominal exam: Present: soft. Absent: distended, tenderness, guarding Extremities exam: Present: full ROM. Absent: tenderness, pedal edema Back exam: Present: normal inspection, full ROM, other (Mild bilateral lumbar tenderness). Absent: CVA tenderness (R), CVA tenderness (L) Neurological exam: Present: alert, oriented X3, other (Patient has no evidence of lower extremity neurological deficit or saddle anesthesia on exam.). Absent: motor sensory deficit Psychiatric exam: Present: normal affect, normal mood Skin exam: Present: warm, dry, intact, normal color Course Vital Signs 06/08/19 06/08/19 17:57 18:42 Temperature 98.1 F Pulse Rate 105 H 90 Respiratory 18 17 Rate Blood Pressure 117/64 120/49 O2 Sat by Pulse 98 95 Oximetry Medical Decision Making - Medical Decision Making Patient's CT abdomen and pelvis is negative for obstructing ureteral stone or explanation for the patient's pain. Patient's UA is normal/unremarkable. Patient's renal function labs are normal as well. Patient has no lower extremi ty neurological deficits, incontinence or urinary retention. I suspect that the patient's pain is likely musculoskeletal in etiology. Patient was counseled about back pain, and he feels comfortable going home at this time. He was clearly explained return and follow-up instructions. He was instructed to follow up closely with his primary care provider. - Lab Data Result diagrams: 06/08/19 18:20 06/08/19 18:20 Lab Results 06/08/19 06/08/19 06/08/19 Range/Units 18:00 18:20 18:20 WBC 13.3 H (3.8-10.6) k/uL RBC 4.29 L (4.30-5.90) m/uL Hgb 13.1 (13.0-17.5) gm/dL Hct 40.0 (39.0-53.0) % MCV 93.3 (80.0-100.0) fL MCH 30.5 (25.0-35.0) pg MCHC 32.7 (31.0-37.0) g/dL RDW 13.7 (11.5-15.5) % Plt Count 262 (150-450) k/uL Neutrophils % 66 % Lymphocytes % 21 % Monocytes % 7 % Eosinophils % 3 % Basophils % 1 % Neutrophils # 8.8 H (1.3-7.7) k/uL Lymphocytes # 2.8 (1.0-4.8) k/uL Monocytes # 0.9 (0-1.0) k/uL Eosinophils # 0.4 (0-0.7) k/uL Basophils # 0.1 (0-0.2) k/uL Sodium 138 (137-145) mmol/L Potassium 4.6 (3.5-5.1) mmol/L Chloride 103 (98-107) mmol/L Carbon Dioxide 26 (22-30) mmol/L Anion Gap 9 mmol/L BUN 27 H (9-20) mg/dL Creatinine 1.20 (0.66-1.25) mg/dL Est GFR (CKD-EPI)AfAm >90 (>60 ml/min/1.73 sqM) Est GFR (CKD-EPI)NonAf 82 (>60 ml/min/1.73 sqM) Glucose 82 (74-99) mg/dL Calcium 9.0 (8.4-10.2) mg/dL Total Bilirubin 0.3 (0.2-1.3) mg/dL AST 28 (17-59) U/L ALT 23 (4-49) U/L Alkaline Phosphatase 55 (38-126) U/L Total Protein 6.5 (6.3-8.2) g/dL Albumin 4.0 (3.5-5.0) g/dL Urine Color Yellow Urine Appearance Clear (Clear) Urine pH 6.0 (5.0-8.0) Ur Specific [place] 1.025 (1.001-1.035) Urine Protein Negative (Negative) Urine Glucose (UA) Negative (Negative) Urine Ketones Negative (Negative) Urine Blood Negative (Negative) Urine Nitrite Negative (Negative) Urine Bilirubin Negative (Negative) Urine Urobilinogen 2.0 (<2.0) mg/dL Ur Leukocyte Esterase Negative (Negative) Urine Opiates Screen Not Detected (NotDetected) Ur Oxycodone Screen Not Detected (NotDetected) Urine Methadone Screen Not Detected (NotDetected) Ur Propoxyphene Screen Not Detected (NotDetected) Ur Barbiturates Screen Not Detected (NotDetected) U Tricyclic Antidepress Not Detected (NotDetected) Ur Phencyclidine Scrn Not Detected (NotDetected) Ur Amphetamines Screen Not Detected (NotDetected) U Methamphetamines Scrn Not Detected (NotDetected) U Benzodiazepines Scrn Not Detected (NotDetected) Urine Cocaine Screen Not Detected (NotDetected) U Marijuana (THC) Screen Not Detected (NotDetected) - Radiology Data Radiology results: report reviewed (CT abdomen/pelvis shows a nonobstructive right renal calculus, no hydronephrosis, persistent moderate circumferential bladder wall thickening, nonspecific prominent fluid-filled small bowel loops) Disposition Clinical Impression: Lumbar back pain Disposition: HOME SELF-CARE Condition: Stable Instructions (If sedation given, give patient instructions): Back Pain (ED) Additional Instructions: Return to the ER immediately should you develop new or worsening pain, leg numbness or weakness, trouble controlling your bladder or bowels, a fever, vomiting, feeling dizzy or faint, shortness of breath, or new or worsening symptoms. Follow up closely with your primary care provider. Is patient prescribed a controlled substance at d/c from ED?: No Referrals: Avila Mobley MD [Primary Care Provider] - 1-2 days Time of Disposition: 19:08
[2019-06-08 18:36] LABS: Basophils # (A) 0.1 k/uL (0-0.2); Basophils % (A) 1 %; Eosinophils # (A) 0.4 k/uL (0-0.7); Eosinophils % (A) 3 %; HGB 13.1 gm/dL (13.0-17.5); Lymphocytes # (A) 2.8 k/uL (1.0-4.8); Lymphocytes % (A) 21 %; MCH 30.5 pg (25.0-35.0); MCHC 32.7 g/dL (31.0-37.0); MCV 93.3 fL (80.0-100.0); Mean Platelet Volume 6.5; Monocytes # (A) 0.9 k/uL (0-1.0); Monocytes % (A) 7 %; Neutrophils # (A) 8.8 k/uL (1.3-7.7); Neutrophils % (A) 66 %; Platelet Count 262 k/uL (150-450); RBC 4.29 m/uL (4.30-5.90); RDW 13.7 % (11.5-15.5); WBC 13.3 k/uL (3.8-10.6)
[2019-06-08 18:43] VITALS: BP 120/49; PULSE 90; RESP 17
[2019-06-08 18:44] LABS: Appearance,Urine Clear (Clear); Bilirubin,Urine Negative (Negative); Blood,Urine Negative (Negative); Color,Urine Yellow; Glucose,Urine (UA) Negative (Negative); Ketones,Urine Negative (Negative); Leukocyte Esterase,Urine Negative (Negative); Nitrite,Urine Negative (Negative); Protein,Urine Negative (Negative); Specific Gravity,Urine 1.025 (1.001-1.035)
--- NOTE | 2019-06-08 18:50 | CT ---
EXAMINATION TYPE: CT abdomen pelvis wo con DATE OF EXAM: 06/08/2019 COMPARISON: 07/28/2017 HISTORY: 28-year-old male Bilateral flank pain, rule out renal stone. CT DLP: 552.4 mGycm. Automated exposure control for dose reduction was used. TECHNIQUE: Contiguous axial scanning of the abdomen and pelvis without IV contrast. Coronal and sagit john reconstructions performed. FINDINGS: Heart normal size without pericardial effusion. Lung bases clear without pleural effusion. Prominent ingested debris distending the stomach. Noncontrast appearance of the liver, gallbladder, adrenal glands, spleen, and pancreas show no gross abnormality. No dilated small bowel, free fluid, or free air. However, prominent fluid-filled small bowel loops ar e present throughout the abdomen. Short segments of a normal appendix are visualized. Moderate stool burden without pericolonic inflammatory change. The mid to distal sigmoid is tortuous. No mesenteric or retroperitoneal lymphadenopathy identified. 4 mm nonobstructive right renal calculus. No calculi seen on the left. No hydronephrosis on either si de. No ureteral calculus identified on either side. Bladder is collapsed but shows moderate circumferential wall thickening. No abnormal fluid collection in the pelvis or pelvic lymphadenopathy. Bones: Degenerative disc disease L-1-L2 and also T10-T11 with some scattered Schmorl's nodes, unchang ed. IMPRESSION: 1. Nonobstructive 4 mm right renal calculus. No hydronephrosis on either side. 2. Persistent moderate circumferential bladder wall thickening. Correlate to exclude cystitis. 3. Prominent fluid filled small bowel loops throughout our nonspecific but may be seen with enteriti s.
[2019-06-08 18:58] LABS: Amphetamine Screen,Urine Not Detected (NotDetected); Barbiturate Screen,Urine Not Detected (NotDetected); Benzodiazepines Screen,Urine Not Detected (NotDetected); Cocaine Screen,Urine Not Detected (NotDetected); Methadone Screen, Urine Not Detected (NotDetected); Opiate Screen,Urine Not Detected (NotDetected); Oxycodone Screen, Urine Not Detected (NotDetected); Phencyclidine Screen,Urine Not Detected (NotDetected); Tricyclic Antidepressant,Urine Not Detected (NotDetected); Urn Cannabinoid Scrn Not Detected (NotDetected)
[2019-06-08 18:59] LABS: ALT 23 U/L (4-49); AST 28 U/L (17-59); African American GFR (CKD) >90 (>60 ml/min/1.73 sqM); Alkaline Phosphatase 55 U/L (38-126); Anion Gap 9 mmol/L; Blood Urea Nitrogen 27 mg/dL (9-20); Carbon Dioxide 26 mmol/L (22-30); Chloride 103 mmol/L (98-107); Glucose 82 mg/dL (74-99); Non-African American GFR(CKD) 82 (>60 ml/min/1.73 sqM); Potassium 4.6 mmol/L (3.5-5.1); Sodium 138 mmol/L (137-145); Total Bilirubin 0.3 mg/dL (0.2-1.3); Total Protein 6.5 g/dL (6.3-8.2)
== END 2019-06-08 19:16 | disposition home or self-care (01) ==
LOC: EC 17:50
DX: M54.5 Low back pain (principal); G89.29 Other chronic pain; F32.9 Major depressive disorder, single episode, unspecified; F41.9 Anxiety disorder, unspecified; I10 Essential (primary) hypertension; F17.200 Nicotine dependence, unspecified, uncomplicated; Z79.899 Other long term (current) drug therapy; Z88.6 Allergy status to analgesic agent; Z88.8 Allergy status to other drugs, medicaments and biological substances; Z87.442 Personal history of urinary calculi; Z98.890 Other specified postprocedural states
CPT/HCPCS: 36415; 74176; 80053; 80306; 81003; 85025; 99284

== ENCOUNTER 2019-07-14 11:43 | Emergency (ER) | payer MEDICARE, OTHER ==
[2019-07-14] MEDS ORDERED: SODIUM CHLORIDE 0.9% 1,000 ML IV STA (12:10)
[2019-07-14] MEDS ORDERED: ONDANSETRON 4 MG/2 ML VIAL IVP STA (12:10)
[2019-07-14] MEDS ORDERED: PANTOPRAZOLE 40 MG/10 ML VIAL IVP STA (12:10)
[2019-07-14] MEDS ORDERED: MAG HYDROX/AL HYDROX/SIMETH 30 ML, HYOSCYAMINE ELIXIR 10 ML, LIDOCAINE VISCOUS 2% 10 ML PO STA ×3 (12:12)
[2019-07-14 12:21] LABS: Basophils % (A) 1 %; Eosinophils # (A) 0.2 k/uL (0-0.7); Eosinophils % (A) 2 %; HCT 41.8 % (39.0-53.0); HGB 13.9 gm/dL (13.0-17.5); Lymphocytes # (A) 1.6 k/uL (1.0-4.8); Lymphocytes % (A) 18 %; MCH 30.8 pg (25.0-35.0); MCHC 33.2 g/dL (31.0-37.0); MCV 92.8 fL (80.0-100.0); Mean Platelet Volume 6.7; Monocytes # (A) 0.4 k/uL (0-1.0); Monocytes % (A) 5 %; Neutrophils # (A) 6.4 k/uL (1.3-7.7); Neutrophils % (A) 73 %; Platelet Count 229 k/uL (150-450); WBC 8.8 k/uL (3.8-10.6)
--- NOTE | 2019-07-14 12:25 | ED ---
General Adult HPI - General Chief complaint: Abdominal Pain Stated complaint: Abd Pain Time Seen by Provider: 07/14/19 12:00 Source: patient, RN notes reviewed, old records reviewed Mode of arrival: ambulatory Limitations: no limitations - History of Present Illness Initial comments: 28-year-old male patient past history significant for hepatitis C, Crohn's disease. 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 Patient reports that is burning in nature. Patient reportedly had a few episodes of nausea and vomiting. Denies any diarrhea, denies any blood in his stool. Denies any other complaints at this time. Systemic: Pt denies fatigue, fever/chills, rash. Pt denies weakness, night sweats, weight loss. Neuro: Pt denies headache, visual disturbances, syncope or pre-syncope. HEENT: Pt denies ocular discharge or irritation, otalgia, rhinorrhea, pharyngitis or notable lymphadenopathy. Cardiopulmonary: Pt denies chest pain, SOB, heart palpitations, dyspnea on exertion. Abdominal/GI: Pt denies diarrhea. : Pt denies dysuria, burning w/ urination, frequency/urgency. Denies new onset urinary or bowel incontinence. MSK: Pt denies myalgia, loss of strength or function in extremities. Neuro: Pt denies new onset weakness, paresthesias. - Related Data Home Medications Medication Instructions Recorded Confirmed OLANZapine [ZyPREXA] 15 mg PO HS 11/03/17 07/14/19 Buprenorphine HCl/Naloxone HCl 1 each SL BID 07/14/19 07/14/19 [Suboxone 12 mg-3 mg Sl Film] Dextroamphetamine/Amphetamine 20 mg PO BID 07/14/19 07/14/19 [Adderall Xr] Dicyclomine HCl 20 mg PO BID PRN 07/14/19 07/14/19 Lisinopril 20 mg PO DAILY 07/14/19 07/14/19 OLANZapine [ZyPREXA] 5 mg PO DAILY 07/14/19 07/14/19 Tamsulosin HCl [Flomax] 0.4 mg PO DAILY 07/14/19 07/14/19 Zolpidem [Ambien] 5 mg PO HS PRN 07/14/19 07/14/19 fluvoxaMINE MALEATE [Fluvoxamine 150 mg PO BID 07/14/19 07/14/19 Maleate] lamoTRIgine [LaMICtal] 25 mg PO BID 07/14/19 07/14/19 traZODone HCL 300 mg PO HS 07/14/19 07/14/19 Previous Rx's Medication Instructions Recorded Naproxen 500 mg PO BID #20 tablet 04/21/19 Allergies Allergy/AdvReac Type Severity Reaction Status Date / Time baclofen AdvReac "BLACKS Verified 07/14/19 13:23 OUT" ibuprofen [From Motrin] AdvReac GABI'S Verified 07/14/19 13:23 FLARE UPS Review of Systems ROS Statement: Those systems with pertinent positive or pertinent negative responses have been documented in the HPI. ROS Other: All systems not noted in ROS Statement are negative. Past Medical History Past Medical History: Hypertension, Pneumonia Additional Past Medical History / Comment(s): kidney stones, chonic back and knee pain, hernia, Crohns History of Any Multi-Drug Resistant Organisms: None Reported Past Surgical History: Hernia Repair, Tonsillectomy Additional Past Surgical History / Comment(s): kidney stone removal, repair of lacerations from chain saw, L forearm and L toe. stent to ureter Additional Past Anesthesia/Blood Transfusion Reaction / Comment(s): Severe anxiety when waking up from anesthesia. Past Psychological History: Anxiety, Depression Smoking Status: Current every day smoker Past Alcohol Use History: None Reported Past Drug Use History: Marijuana - Past Family History Mother Additional Family Medical History / Comment(s): Brain aneurysm General Exam - General Exam Comments Initial Comments: Constitutional: NAD, AOX3, Pt has pleasant affect. HEENT: NC/AT, trachea midline, neck supple, External ears appear normal, without discharge. Mucous membranes moist. EOM intact. There is no scleral icterus. No pallor noted. Cardiopulmonary: RRR, no murmurs, rubs or gallops, no JVD noted. Lungs CTAB in anterior and posterior pace. No peripheral edema. Abdominal exam: Abdomen soft and non-distended. Abdomen mild tenderness to palpation in epigastric right upper quadrant region. Bowel sounds active in LLQ. No hepatosplenomegaly. No ecchymosis Neuro: CN II-XII grossly intact. No nuchal rigidity. No raccon eyes, no vallecillo sign, no hemotympanum. No cervical spinal tenderness. MSK: Full active ROM in upper and lower extremities Limitations: no limitations Course Vital Signs 07/14/19 07/14/19 07/14/19 11:50 12:12 13:15 Temperature 98.5 F Pulse Rate 80 82 73 Respiratory 18 18 20 Rate Blood Pressure 156/62 111/57 123/82 O2 Sat by Pulse 100 98 97 Oximetry Medical Decision Making - Medical Decision Making 28-year-old male patient with CVG complaint of epigastric abdominal pain. Patient will signs are stable, afebrile. Physical exam didn't display epigastric as well as right upper quadrant tenderness. Patient was initiated on Protonix GI cocktail which did not offer much relief. Laboratory investigations were obtained this was significant for a mildly elevated lipase in the 500s. Patient denies any recent EtOH use or history of gallstones. Ultrasound was conducted the right upper quadrant which did not display any gallbladder pathology or gallstones. Did display a previously identified renal calculi. On repeat evaluation abdomen is nontender he states that he is feeling much improved. No active vomiting. Patient was recommended admission to hospital which he refuses. He'll be discharged with outpatient primary care and GI follow-up. Case discussed with Dr. Lucio. - Lab Data Result diagrams: 07/14/19 12:05 07/14/19 12:05 Lab Results 07/14/19 07/14/19 07/14/19 Range/Units 12:05 12:05 12:05 WBC 8.8 (3.8-10.6) k/uL RBC 4.50 (4.30-5.90) m/uL Hgb 13.9 (13.0-17.5) gm/dL Hct 41.8 (39.0-53.0) % MCV 92.8 (80.0-100.0) fL MCH 30.8 (25.0-35.0) pg MCHC 33.2 (31.0-37.0) g/dL RDW 13.0 (11.5-15.5) % Plt Count 229 (150-450) k/uL Neutrophils % 73 % Lymphocytes % 18 % Monocytes % 5 % Eosinophils % 2 % Basophils % 1 % Neutrophils # 6.4 (1.3-7.7) k/uL Lymphocytes # 1.6 (1.0-4.8) k/uL Monocytes # 0.4 (0-1.0) k/uL Eosinophils # 0.2 (0-0.7) k/uL Basophils # 0.0 (0-0.2) k/uL Sodium 138 (137-145) mmol/L Potassium 4.4 (3.5-5.1) mmol/L Chloride 106 (98-107) mmol/L Carbon Dioxide 25 (22-30) mmol/L Anion Gap 7 mmol/L BUN 16 (9-20) mg/dL Creatinine 1.07 (0.66-1.25) mg/dL Est GFR (CKD-EPI)AfAm >90 (>60 ml/min/1.73 sqM) Est GFR (CKD-EPI)NonAf >90 (>60 ml/min/1.73 sqM) Glucose 105 H (74-99) mg/dL Plasma Lactic Acid [place] (0.7-2.0) mmol/L Calcium 10.2 (8.4-10.2) mg/dL Total Bilirubin 0.7 (0.2-1.3) mg/dL AST 37 (17-59) U/L ALT 26 (4-49) U/L Alkaline Phosphatase 46 (38-126) U/L Total Protein 7.4 (6.3-8.2) g/dL Albumin 4.6 (3.5-5.0) g/dL Lipase 529 H (23-300) U/L Urine Color Yellow Urine Appearance Clear (Clear) Urine pH 6.0 (5.0-8.0) Ur Specific [place] 1.023 (1.001-1.035) Urine Protein Negative (Negative) Urine Glucose (UA) Negative (Negative) Urine Ketones Negative (Negative) Urine Blood Negative (Negative) Urine Nitrite Negative (Negative) Urine Bilirubin Negative (Negative) Urine Urobilinogen <2.0 (<2.0) mg/dL Ur Leukocyte Esterase Negative (Negative) Serum Alcohol mg/dL 07/14/19 07/14/19 Range/Units 12:05 12:05 WBC (3.8-10.6) k/uL RBC (4.30-5.90) m/uL Hgb (13.0-17.5) gm/dL Hct (39.0-53.0) % MCV (80.0-100.0) fL MCH (25.0-35.0) pg MCHC (31.0-37.0) g/dL RDW (11.5-15.5) % Plt Count (150-450) k/uL Neutrophils % % Lymphocytes % % Monocytes % % Eosinophils % % Basophils % % Neutrophils # (1.3-7.7) k/uL Lymphocytes # (1.0-4.8) k/uL Monocytes # (0-1.0) k/uL Eosinophils # (0-0.7) k/uL Basophils # (0-0.2) k/uL Sodium (137-145) mmol/L Potassium (3.5-5.1) mmol/L Chloride (98-107) mmol/L Carbon Dioxide (22-30) mmol/L Anion Gap mmol/L BUN (9-20) mg/dL Creatinine (0.66-1.25) mg/dL Est GFR (CKD-EPI)AfAm (>60 ml/min/1.73 sqM) Est GFR (CKD-EPI)NonAf (>60 ml/min/1.73 sqM) Glucose (74-99) mg/dL Plasma Lactic Acid [place] 0.7 (0.7-2.0) mmol/L Calcium (8.4-10.2) mg/dL Total Bilirubin (0.2-1.3) mg/dL AST (17-59) U/L ALT (4-49) U/L Alkaline Phosphatase (38-126) U/L Total Protein (6.3-8.2) g/dL Albumin (3.5-5.0) g/dL Lipase (23-300) U/L Urine Color Urine Appearance (Clear) Urine pH (5.0-8.0) Ur Specific [place] (1.001-1.035) Urine Protein (Negative) Urine Glucose (UA) (Negative) Urine Ketones (Negative) Urine Blood (Negative) Urine Nitrite (Negative) Urine Bilirubin (Negative) Urine Urobilinogen (<2.0) mg/dL Ur Leukocyte Esterase (Negative) Serum Alcohol <10 mg/dL Disposition Clinical Impression: Pancreatitis, Abdominal pain Disposition: HOME SELF-CARE Condition: Stable Instructions (If sedation given, give patient instructions): Pancreatitis (ED), Abdominal Pain (ED) Additional Instructions: Recommend beginning your diet with mostly clears and nonfatty foods, slowly advance as tolerated. May use zofran every 8 hours as needed. Follow-up with primary care provider tomorrow. Follow with GI consult tomorrow. Return immediately to ER if condition worsens in any way. Is patient prescribed a controlled substance at d/c from ED?: No Referrals: Avila Mobley MD [Primary Care Provider] - 1-2 days Ricco Dotson MD [STAFF PHYSICIAN] - 1-2 days
[2019-07-14 12:26] LABS: ALT 26 U/L (4-49); AST 37 U/L (17-59); African American GFR (CKD) >90 (>60 ml/min/1.73 sqM); Albumin 4.6 g/dL (3.5-5.0); Alkaline Phosphatase 46 U/L (38-126); Anion Gap 7 mmol/L; Appearance,Urine Clear (Clear); Bilirubin,Urine Negative (Negative); Blood Urea Nitrogen 16 mg/dL (9-20); Blood,Urine Negative (Negative); Calcium 10.2 mg/dL (8.4-10.2); Carbon Dioxide 25 mmol/L (22-30); Chloride 106 mmol/L (98-107); Color,Urine Yellow; Glucose 105 mg/dL (74-99); Glucose,Urine (UA) Negative (Negative); Ketones,Urine Negative (Negative); Leukocyte Esterase,Urine Negative (Negative); Nitrite,Urine Negative (Negative); Non-African American GFR(CKD) >90 (>60 ml/min/1.73 sqM); Potassium 4.4 mmol/L (3.5-5.1); Protein,Urine Negative (Negative); Sodium 138 mmol/L (137-145); Specific Gravity,Urine 1.023 (1.001-1.035); Total Bilirubin 0.7 mg/dL (0.2-1.3); Total Protein 7.4 g/dL (6.3-8.2); Urobilinogen,Urine <2.0 mg/dL (<2.0)
--- NOTE | 2019-07-14 12:54 | XR ---
EXAMINATION TYPE: XR KUB DATE OF EXAM: 07/14/2019 12:32 PM CLINICAL HISTORY: Upper abdominal generalized pain and vomiting TECHNIQUE: Single upright image of the abdomen is obtained. COMPARISON: 08/31/2017. FINDINGS: The previously seen right ureteral stent has been removed. No pneumoperitoneum identified. No dilated large or small bowel. Lung bases are well aerated. Osseous structures are grossly intact. Mild degree colonic fecal stasis. IMPRESSION: Mild degree colonic fecal stasis in an overall nonobstructive bowel gas pattern.
[2019-07-14] MEDS ORDERED: MORPHINE SULFATE 4 MG/ML SYRINGE IV STA (12:59)
--- NOTE | 2019-07-14 13:48 | US ---
EXAMINATION TYPE: US gallbladder DATE OF EXAM: 07/14/2019 COMPARISON: 06/08/2019 CT CLINICAL HISTORY: RUQ tenderness, r/o gallstone pancreatitis. EXAM MEASUREMENTS: Liver Length: 13.7 cm Gallbladder Wall: 0.2 cm CBD: 0.3 cm Right Kidney: 10.2 x 3.8 x 4.6cm Pancreas: Obscured by bowel gas Liver: wnl Gallbladder: wnl Evidence for sonographic Delgado's sign: patient's entire RUQ very tender CBD: wnl Right Kidney: echogenic focus measuring 0.4 x 0.3 x 0.3cm IMPRESSION: 1. No sonographic evidence of cholelithiasis or acute cholecystitis. 2. Obscuration of the pancreas by overlying bowel gas. 3. Punctate echogenic this within the right kidney likely represents a 0.4 cm nonobstructing calculus . This was seen on the prior CT of 06/08/2019.
[2019-07-14] MEDS ORDERED: ONDANSETRON 4 MG ODT STARTER PACK 2 TAB BTL PO STA (14:27)
[2019-07-14 14:38] VITALS: BP 125/77; PULSE 80; RESP 16; TEMP 98.2
== END 2019-07-14 14:36 | disposition home or self-care (01) ==
LOC: EC 11:43
DX: K85.90 Acute pancreatitis without necrosis or infection, unspecified (principal); F41.9 Anxiety disorder, unspecified; F32.9 Major depressive disorder, single episode, unspecified; I10 Essential (primary) hypertension; F17.200 Nicotine dependence, unspecified, uncomplicated; Z79.899 Other long term (current) drug therapy; Z88.6 Allergy status to analgesic agent; Z88.8 Allergy status to other drugs, medicaments and biological substances
CPT/HCPCS: 99285; 96374; 96375 ×2; 96361; 36415; 80053; 83605; 83690; 85025; 81003; 74018; 76705; G0480; J2270; J2405; S0119; C9113; 80320

== ENCOUNTER 2020-10-14 17:03 | Emergency (ER) | payer MEDICARE, OTHER ==
[2020-10-14 17:08] VITALS: BP 126/76; PULSE 108; RESP 20; TEMP 98
[2020-10-14 17:47] LABS: Basophils % (A) 1 %; Eosinophils # (A) 0.1 k/uL (0-0.7); Eosinophils % (A) 2 %; HGB 14.7 gm/dL (13.0-17.5); Lymphocytes # (A) 1.7 k/uL (1.0-4.8); Lymphocytes % (A) 22 %; MCHC 34.9 g/dL (31.0-37.0); MCV 91.9 fL (80.0-100.0); Mean Platelet Volume 6.9; Monocytes # (A) 0.5 k/uL (0-1.0); Monocytes % (A) 7 %; Neutrophils # (A) 5.1 k/uL (1.3-7.7); Neutrophils % (A) 67 %; Platelet Count 250 k/uL (150-450); RBC 4.57 m/uL (4.30-5.90); RDW 13.7 % (11.5-15.5); WBC 7.6 k/uL (3.8-10.6)
[2020-10-14 17:48] LABS: Appearance,Urine Clear (Clear); Bilirubin,Urine Negative (Negative); Blood,Urine Negative (Negative); Color,Urine Yellow; Glucose,Urine (UA) Negative (Negative); Ketones,Urine Negative (Negative); Leukocyte Esterase,Urine Negative (Negative); Nitrite,Urine Negative (Negative); PH, Urine 5.5 (5.0-8.0); Protein,Urine Trace (Negative); Specific Gravity,Urine 1.017 (1.001-1.035); Urobilinogen,Urine <2.0 mg/dL (<2.0)
[2020-10-14 17:57] LABS: Albumin 5.1 g/dL (3.5-5.0); Calcium 9.9 mg/dL (8.4-10.2); Magnesium 2.3 mg/dL (1.6-2.3); Potassium 5.4 mmol/L (3.5-5.1); Total Bilirubin 0.3 mg/dL (0.2-1.3); Total Protein 7.8 g/dL (6.3-8.2)
[2020-10-14 17:59] LABS: Amphetamine Screen,Urine Detected (NotDetected); Barbiturate Screen,Urine Not Detected (NotDetected); Benzodiazepines Screen,Urine Not Detected (NotDetected); Cocaine Screen,Urine Not Detected (NotDetected); Methadone Screen, Urine Not Detected (NotDetected); Opiate Screen,Urine Not Detected (NotDetected); Oxycodone Screen, Urine Not Detected (NotDetected); Phencyclidine Screen,Urine Not Detected (NotDetected); Tricyclic Antidepressant,Urine Detected (NotDetected); Urn Cannabinoid Scrn Not Detected (NotDetected)
[2020-10-14] MEDS ORDERED: SODIUM CHLORIDE 0.9% 500 ML 500 ML IV STA (18:10)
--- NOTE | 2020-10-14 18:53 | ED ---
Recheck HPI - General Chief Complaint: Recheck/Abnormal Lab/Rx Stated Complaint: kidney problems-sent by PCP Time Seen by Provider: 10/14/20 17:21 Source: patient Mode of arrival: ambulatory Limitations: no limitations - History of Present Illness Initial Comments: Patient is a 29-year-old male presenting to the emergency Department as requested by his primary care physician. Patient states he was having some high blood pressure and feeling uneasy on Monday, 3 days ago, went to [facility] and states that he was dehydrated and told his kidney function was elevated. He followed up with his primary care physician the next day, had labs drawn the next day after that. He states he went today for follow-up with his primary care physician and states he was told "he was in kidney failure and he needed to go to the ER right now." He does not know the numbers of his lab work. Patient states he feels totally normal today, no complaints of anything at this time. He denies any chest pain or shortness of breath, no abdominal pain, no nausea or vomiting. He denies any dysuria. He states he has been increasing his water over the last few days secondary to what he has been told. He denies any history of kidney failure. Patient denies alcohol use, no other drug use and was prescribed to him he states. He has no further complaints. His vital signs are stable upon arrival. - Related Data Home Medications Medication Instructions Recorded Confirmed Dicyclomine HCl 20 mg PO BID PRN 07/14/19 10/14/20 Tamsulosin HCl [Flomax] 0.4 mg PO BID 07/14/19 10/14/20 fluvoxaMINE MALEATE [Fluvoxamine 150 mg PO HS 07/14/19 10/14/20 Maleate] traZODone HCL 150 mg PO HS 07/14/19 10/14/20 Cyclobenzaprine [Flexeril] 10 mg PO BID PRN 10/14/20 10/14/20 Dextroamphetamine/Amphetamine 20 mg PO BID 10/14/20 10/14/20 [Adderall] Ergocalciferol (Vitamin D2) 1,250 mcg PO Q7D 10/14/20 10/14/20 [Drisdol (50,000 Iu)] Lipase/Protease/Amylase [Zenpep Dr 1 cap PO DAILY 10/14/20 10/14/20 40,000 Unit Capsule] OLANZapine [ZyPREXA] 10 mg PO HS 10/14/20 10/14/20 fluvoxaMINE MALEATE 100 mg PO DAILY 10/14/20 10/14/20 lamoTRIgine [LaMICtal] 200 mg PO DAILY 10/14/20 10/14/20 lisinopriL 40 mg PO DAILY 10/14/20 10/14/20 Allergies Allergy/AdvReac Type Severity Reaction Status Date / Time baclofen AdvReac "BLACKS Verified 10/14/20 18:00 OUT" ibuprofen [From Motrin] AdvReac GABI'S Verified 10/14/20 18:00 FLARE UPS Review of Systems ROS Statement: Those systems with pertinent positive or pertinent negative responses have been documented in the HPI. ROS Other: All systems not noted in ROS Statement are negative. Past Medical History Past Medical History: Hypertension, Pneumonia Additional Past Medical History / Comment(s): kidney stones, chonic back and knee pain, hernia, Crohns History of Any Multi-Drug Resistant Organisms: None Reported Past Surgical History: Hernia Repair, Tonsillectomy Additional Past Surgical History / Comment(s): kidney stone removal, repair of lacerations from chain saw, L forearm and L toe. stent to ureter Additional Past Anesthesia/Blood Transfusion Reaction / Comment(s): Severe anxiety when waking up from anesthesia. Past Psychological History: Anxiety, Depression Smoking Status: Current every day smoker Past Alcohol Use History: None Reported Past Drug Use History: None Reported, Marijuana - Past Family History Mother Additional Family Medical History / Comment(s): Brain aneurysm General Exam - General Exam Comments Initial Comments: GENERAL: Patient is well-developed and well-nourished. Patient is nontoxic and in no acute distress. HEAD: Atraumatic, normocephalic. EYES: Pupils equal round and reactive to light, extraocular movements intact, sclera anicteric, conjunctiva are normal. Eyelids were unremarkable. ENT: Moist mucous membranes. NECK: Normal range of motion, supple without lymphadenopathy or JVD. LUNGS: Unlabored respirations. Breath sounds clear to auscultation bilaterally and equal. No wheezes rales or rhonchi. HEART: Regular rate and rhythm without murmurs, rubs or gallops. ABDOMEN: Soft, nontender, normoactive bowel sounds. No guarding, no rebound. No masses appreciated. : Deferred MUSCULOSKELETAL: Normal extremities with adequate strength and normal range of motion, no pitting or edema. No clubbing or cyanosis. NEUROLOGICAL: Patient is alert and oriented x 3. Motor and sensory are also intact. Cranial nerves II through XII grossly intact. Symmetrical smile. Normal speech, normal gait. PSYCH: Normal mood, normal affect. SKIN: Warm, Dry, normal turgor, no rashes or lesions noted. Limitations: no limitations Course Vital Signs 10/14/20 17:05 Temperature 98.0 F Pulse Rate 108 H Respiratory 20 Rate Blood Pressure 126/76 O2 Sat by Pulse 100 Oximetry Medical Decision Making - Medical Decision Making Patient is a 29-year-old male here sent in by PCPs office for possible kidney failure. He has no complaints today, his exam is unremarkable, no acute findings. His vital signs are stable. Patient's labs show a creatinine of 1.53 and a BUN of 35, his GFR is 61. Urine shows no evidence of infection, trace amount of protein. He does have amphetamines and antidepressants in his urine tox screen. These are prescribed to him. I discussed the patient the findings, I did recommend seeing a toys and games hand finisher, patient wants to see this as an outpatient. He has been tolerating oral intake, he has not been vomiting. I will give him referral. He is agreeable to this plan of care. Return parameters were discussed with him and he verbalized understanding. Case discussed with Dr. Swenson. - Lab Data Result diagrams: 10/14/20 17:37 10/14/20 17:37 Lab Results 10/14/20 10/14/20 10/14/20 Range/Units 17:37 17:37 17:37 WBC 7.6 (3.8-10.6) k/uL RBC 4.57 (4.30-5.90) m/uL Hgb 14.7 (13.0-17.5) gm/dL Hct 42.0 (39.0-53.0) % MCV 91.9 (80.0-100.0) fL MCH 32.0 (25.0-35.0) pg MCHC 34.9 (31.0-37.0) g/dL RDW 13.7 (11.5-15.5) % Plt Count 250 (150-450) k/uL MPV 6.9 Neutrophils % 67 % Lymphocytes % 22 % Monocytes % 7 % Eosinophils % 2 % Basophils % 1 % Neutrophils # 5.1 (1.3-7.7) k/uL Lymphocytes # 1.7 (1.0-4.8) k/uL Monocytes # 0.5 (0-1.0) k/uL Eosinophils # 0.1 (0-0.7) k/uL Basophils # 0.0 (0-0.2) k/uL Sodium 139 (137-145) mmol/L Potassium 5.4 H (3.5-5.1) mmol/L Chloride 105 (98-107) mmol/L Carbon Dioxide 26 (22-30) mmol/L Anion Gap 8 mmol/L BUN 35 H (9-20) mg/dL Creatinine 1.53 H (0.66-1.25) mg/dL Est GFR (CKD-EPI)AfAm 70 (>60 ml/min/1.73 sqM) Est GFR (CKD-EPI)NonAf 61 (>60 ml/min/1.73 sqM) Glucose 117 H (74-99) mg/dL Calcium 9.9 (8.4-10.2) mg/dL Magnesium 2.3 (1.6-2.3) mg/dL Total Bilirubin 0.3 (0.2-1.3) mg/dL AST 62 H (17-59) U/L ALT 43 (4-49) U/L Alkaline Phosphatase 75 (38-126) U/L Total Protein 7.8 (6.3-8.2) g/dL Albumin 5.1 H (3.5-5.0) g/dL Urine Color Yellow Urine Appearance Clear (Clear) Urine pH 5.5 (5.0-8.0) Ur Specific [place] 1.017 (1.001-1.035) Urine Protein Trace H (Negative) Urine Glucose (UA) Negative (Negative) Urine Ketones Negative (Negative) Urine Blood Negative (Negative) Urine Nitrite Negative (Negative) Urine Bilirubin Negative (Negative) Urine Urobilinogen <2.0 (<2.0) mg/dL Ur Leukocyte Esterase Negative (Negative) Urine Opiates Screen Not Detected (NotDetected) Ur Oxycodone Screen Not Detected (NotDetected) Urine Methadone Screen Not Detected (NotDetected) Ur Propoxyphene Screen Not Detected (NotDetected) Ur Barbiturates Screen Not Detected (NotDetected) U Tricyclic Antidepress Detected H (NotDetected) Ur Phencyclidine Scrn Not Detected (NotDetected) Ur Amphetamines Screen Detected H (NotDetected) U Methamphetamines Scrn Not Detected (NotDetected) U Benzodiazepines Scrn Not Detected (NotDetected) Urine Cocaine Screen Not Detected (NotDetected) U Marijuana (THC) Screen Not Detected (NotDetected) Disposition Clinical Impression: Dehydration, CALI (acute kidney injury) Disposition: HOME SELF-CARE Condition: Stable Instructions (If sedation given, give patient instructions): Dehydration (ED) Additional Instructions: Please return to the Emergency Department if symptoms worsen or any other concerns. Please increase your fluid intake. Please follow up with your primary care physician and nephrology. Is patient prescribed a controlled substance at d/c from ED?: No Referrals: Avila Mobley MD [Primary Care Provider] - 1-2 days Ninfa Caldwell MD [STAFF PHYSICIAN] - 1-2 days Time of Disposition: 18:53
== END 2020-10-14 19:03 | disposition home or self-care (01) ==
LOC: EC 17:03
DX: E86.0 Dehydration (principal); N17.9 Acute kidney failure, unspecified; I10 Essential (primary) hypertension; F32.9 Major depressive disorder, single episode, unspecified; F41.9 Anxiety disorder, unspecified; F17.200 Nicotine dependence, unspecified, uncomplicated; F12.90 Cannabis use, unspecified, uncomplicated; Z79.899 Other long term (current) drug therapy
CPT/HCPCS: 36415; 80053; 80306; 81003; 83735; 85025; 99284

== ENCOUNTER 2022-05-29 01:35 | Emergency (ER) | payer MEDICARE, OTHER ==
[2022-05-29 01:46] VITALS: BP 131/83; PULSE 79; RESP 18; TEMP 98.1
[2022-05-29] MEDS ORDERED: ORPHENADRINE 30 MG/ML 2 ML VIAL IM STA (01:51)
[2022-05-29] MEDS ORDERED: KETOROLAC 15 MG/ML 1 ML VIAL IM STA (01:51)
--- NOTE | 2022-05-29 03:31 | XR ---
EXAM: XR Lumbosacral Spine, 2 or 3 Views CLINICAL HISTORY: XR Reason: slip and fall TECHNIQUE: Frontal and lateral views of the lumbar spine and sacrum. COMPARISON: MRI lumbar spine from January 25, [address] abdomen and pelvis from June 08, 2019 FINDINGS: Vertebrae: The lumbar spine vertebral body heights appear within normal limits. No compression fracture or burst fracture is identified. Sacrum/coccyx: Unremarkable as visualized. No acute fracture. Disc spaces: Mild to moderate degenerative changes throughout the upper lumbar spine, greatest at L1-2 and L2-3, increased since previous. There is associated mild 7 scoliosis. No subluxation is identified. Soft tissues: See above. IMPRESSION: 1. The lumbar spine vertebral body heights appear within normal limits. No compression fracture or burst fracture is identified. 2. Mild to moderate degenerative changes throughout the upper lumbar spine, greatest at L1-2 and L2-3, increased since previous. There is associated mild 7 scoliosis. No subluxation is identified.
--- NOTE | 2022-05-29 03:34 | XR ---
EXAM: XR Thoracic Spine, 2 Views CLINICAL HISTORY: XR Reason: slip and fall TECHNIQUE: Frontal and lateral views of the thoracic spine. COMPARISON: No relevant prior studies available. FINDINGS: Vertebrae: The thoracic spine #2 Body Heights are normally maintained. No compression fracture is seen. Normal alignment. Disc spaces: Mild multilevel degenerative changes throughout the mid to lower thoracic spine. No acute fracture or subluxation is seen. Soft tissues: The paraspinous soft tissues appear within normal limits. IMPRESSION: 1. The thoracic spine #2 Body Heights are normally maintained. No compression fracture is seen. 2. Mild multilevel degenerative changes throughout the mid to lower thoracic spine. No acute fracture or subluxation is seen.
--- NOTE | 2022-05-29 03:35 | ED ---
Back Pain HPI - General Chief Complaint: Back Pain/Injury Stated Complaint: Back Pain, Swollen Lymph nodes Time Seen by Provider: 05/29/22 01:48 Source: patient Limitations: no limitations - History of Present Illness Initial Comments: Patient is a 31-year-old male presenting with chief complaint of back pain. Patient states that for 5 days ago he had a slip and fall at work landing on the back and also. He has continued to have back pain. No loss of consciousness or blood thinners treatment injury. No loss of bowel or bladder control or saddle paresthesia. No shooting pain, numbness, tingling, weakness. - Related Data Home Medications Medication Instructions Recorded Confirmed Dicyclomine HCl 20 mg PO BID PRN 07/14/19 10/14/20 Tamsulosin HCl [Flomax] 0.4 mg PO BID 07/14/19 10/14/20 fluvoxaMINE MALEATE [Fluvoxamine 150 mg PO HS 07/14/19 10/14/20 Maleate] traZODone HCL 150 mg PO HS 07/14/19 10/14/20 Cyclobenzaprine [Flexeril] 10 mg PO BID PRN 10/14/20 10/14/20 Dextroamphetamine/Amphetamine 20 mg PO BID 10/14/20 10/14/20 [Adderall] Ergocalciferol (Vitamin D2) 1,250 mcg PO Q7D 10/14/20 10/14/20 [Drisdol (50,000 Iu)] Lipase/Protease/Amylase [Zenpep Dr 1 cap PO DAILY 10/14/20 10/14/20 40,000 Unit Capsule] OLANZapine [ZyPREXA] 10 mg PO HS 10/14/20 10/14/20 fluvoxaMINE MALEATE [Luvox] 100 mg PO DAILY 10/14/20 10/14/20 lamoTRIgine [LaMICtal] 200 mg PO DAILY 10/14/20 10/14/20 lisinopriL 40 mg PO DAILY 10/14/20 10/14/20 Allergies Allergy/AdvReac Type Severity Reaction Status Date / Time baclofen AdvReac "BLACKS Verified 05/29/22 01:43 OUT" ibuprofen [From Motrin] AdvReac GABI'S Verified 05/29/22 01:43 FLARE UPS Review of Systems ROS Statement: Those systems with pertinent positive or pertinent negative responses have been documented in the HPI. ROS Other: All systems not noted in ROS Statement are negative. Past Medical History Past Medical History: Hypertension, Pneumonia Additional Past Medical History / Comment(s): kidney stones, chonic back and knee pain, hernia, Crohns History of Any Multi-Drug Resistant Organisms: None Reported Past Surgical History: Hernia Repair, Tonsillectomy Additional Past Surgical History / Comment(s): kidney stone removal, repair of lacerations from chain saw, L forearm and L toe. stent to ureter Additional Past Anesthesia/Blood Transfusion Reaction / Comment(s): Severe anxiety when waking up from anesthesia. Past Psychological History: Anxiety, Depression Smoking Status: Current every day smoker Past Alcohol Use History: None Reported Past Drug Use History: None Reported, Marijuana - Past Family History Mother Additional Family Medical History / Comment(s): Brain aneurysm General Exam Limitations: no limitations General appearance: alert, in no apparent distress Head exam: Present: atraumatic, normocephalic, normal inspection Eye exam: Present: normal appearance, EOMI. Absent: periorbital swelling, periorbital tenderness Neck exam: Present: normal inspection, full ROM Extremities exam: Present: normal inspection Back exam: Present: normal inspection, tenderness Neurological exam: Present: alert, oriented X3, CN II-XII intact Psychiatric exam: Present: normal affect, normal mood Skin exam: Present: warm, dry, intact, normal color. Absent: rash Course Vital Signs 05/29/22 01:44 Temperature 98.1 F Pulse Rate 79 Respiratory 18 Rate Blood Pressure 131/83 O2 Sat by Pulse 100 Oximetry Medical Decision Making - Medical Decision Making Was pt. sent in by a medical professional or institution (, PA, WET SANDER, urgent care, hospital, or usp...) When possible be specific @ -No Did you speak to anyone other than the patient for history (EMS, parent, family, police, friend...)? What history was obtained from this source @ -No Did you review nursing and triage notes (agree or disagree)? Why? @ -I reviewed and agree with nursing and triage notes Were old charts reviewed (outside hosp., previous admission, EMS record, old EKG, old radiological studies, urgent care reports/EKG's, usp records)? Report findings @ -No old charts were reviewed Differential Diagnosis (chest pain, altered mental status, abdominal pain women, abdominal pain men, vaginal bleeding, weakness, fever, dyspnea, syncope, headache, dizziness, GI bleed, back pain, seizure, CVA, palpatations, mental health, musculoskeletal)? @ - [facility] Differential Back Pain: Strain, zoster, cauda equina syndrome, epidural abscess, vertebral osteomyelitis, discitis, fracture, subluxation, disc herniation, DJD, spinal stenosis, dissection, AAA, pancreatitis, peptic ulcer disease, pyelonephritis, kidney stone this is not meant to be an all-inclusive list. EKG interpreted by me (3pts min.). @ -As above X-rays interpreted by me (1pt min.). @ -X-rays showed no acute process CT interpreted by me (1pt min.). @ -None done U/S interpreted by me (1pt. min.). @ -None done What testing was considered but not performed or refused? (CT, X-rays, U/S, labs)? Why? @ -None What meds were considered but not given or refused? Why? @ -None Did you discuss the management of the patient with other professionals (professionals i.e. , PA, WET SANDER, lab, RT, psych nurse, professor of social work, sausage maker, teacher, radiological defense officer, manager case management)? Give summary @ -No Was smoking cessation discussed for >3mins.? @ -No Was critical care preformed (if so, how long)? @ -No Were there social determinants of health that impacted care today? How? (Homelessness, low income, unemployed, alcoholism, drug addiction, transportation, low edu. Level, literacy, decrease access to med. care, assisted, rehab)? @ -No Was there de-escalation of care discussed even if they declined (Discuss DNR or withdrawal of care, Hospice)? DNR status @ -No What co-morbidities impacted this encounter? (DM, HTN, Smoking, COPD, CAD, Cancer, CVA, ARF, Chemo, Hep., AIDS, mental health diagnosis, sleep apnea, morbid obesity)? @ -None Was patient admitted / discharged? Hospital course, mention meds given and route, prescriptions, significant lab abnormalities, going to OR and other pertinent info. @ -Patient is a 31-year-old male presenting with chief complaint of back pain after slip and fall at work about 4 or 5 days ago. No alarm symptoms. On physical examination normal observation with tenderness to palpation. X-ray showed no acute process. Patient is resting comfortably after Toradol and Norflex. Educated on supportive treatment at home. Follow-up with PCP. Report back to ER with any new or worsening symptoms. Discussed return parameters and answered all questions. Patient conveyed verbal understanding and agreed to the plan. I discussed this case in detail with my attending Dr. Burger Undiagnosed new problem with uncertain prognosis? @ -No Drug Therapy requiring intensive monitoring for toxicity (Heparin, Nitro, Insulin, Cardizem)? @ -No Were any procedures done? @ -No Diagnosis/symptom? @ -Lumbar strain Acute, or Chronic, or Acute on Chronic? @ -Acute Uncomplicated (without systemic symptoms) or Complicated (systemic symptoms)? @ -Uncomplicated Side effects of treatment? @ -No Exacerbation, Progression, or Severe Exacerbation? @ -No Poses a threat to life or bodily function? How? (Chest pain, [place], [place], pneumonia, PE, COPD, DKA, ARF, appy, cholecystitis, CVA, Diverticulitis, Homicidal, Suicidal, threat to staff... and all critical care pts) @ -No Disposition Clinical Impression: Strain of lumbar region Disposition: HOME SELF-CARE Condition: Good Instructions (If sedation given, give patient instructions): Acute Low Back Pain (ED) Additional Instructions: Follow-up with PCP. Report back to ER with any new or worsening symptoms. Take Motrin and Tylenol as needed for pain control. Is patient prescribed a controlled substance at d/c from ED?: No Referrals: Avila Mobley MD [Primary Care Provider] - 1-2 days Time of Disposition: 03:37
[2022-05-29] MEDS ORDERED: LIDOCAINE 5% PATCH TOPICAL SCH (09:00)
== END 2022-05-29 03:43 | disposition home or self-care (01) ==
LOC: EC 01:35
DX: S39.012A Strain of muscle, fascia and tendon of lower back, initial encounter (principal); I10 Essential (primary) hypertension; F41.9 Anxiety disorder, unspecified; F32.A Depression, unspecified; F17.200 Nicotine dependence, unspecified, uncomplicated; Z88.6 Allergy status to analgesic agent; Z88.8 Allergy status to other drugs, medicaments and biological substances; Z79.899 Other long term (current) drug therapy; W01.0XXA Fall on same level from slipping, tripping and stumbling without subsequent striking against object, initial encounter
CPT/HCPCS: 72072; 72100; 99283; 96372 ×2; J2360; J1885